=== PATIENT | male | born 1960 | race Caucasian/White ===

== ENCOUNTER → 2017-08-26 13:35 | Outpatient (REF) | payer BC, SELFPAY ==
[2017-08-26 14:07] LABS: Basophils # 0.1 K/mm3 (0-0.2); Eosinophils # 0.1 K/mm3 (0.0-0.4); Eosinophils % 2.3 % (0.1-12.0); Hematocrit 46.3 % (42.0-52.0); Hemoglobin 14.5 g/dL (14.1-18.0); Lymphocytes # 2.1 K/mm3 (0.7-4.5); Lymphocytes % 36.9 K/mm3 (10-50); Mean Corpuscular HGB Conc 31.4 g/dL (31.8-35.4); Mean Corpuscular Hemoglobin 34.3 pg (27.0-31.2); Mean Corpuscular Volume 109.5 fl (80-94); Monocytes # 0.4 K/mm3 (0.1-1.0); Monocytes % 7.9 % (1.7-9.3); Neutrophils # 2.9 K/mm3 (1.8-7.8); Platelet Count 219 K/mm3 (142-424); Red Blood Count 4.23 M/mm3 (4.60-6.20); Red Cell Distribution Width 12.9 % (11.5-17.5); White Blood Count 5.6 K/mm3 (4.8-10.8)
[2017-08-26 16:01] LABS: Alanine Aminotransferase 27 U/L (12-78); Albumin Level 3.8 gm/dL (3.4-5.0); Alkaline Phosphatase 61 U/L (46-116); Anion Gap 16.2 mEq/L (5-15); Aspartate Amino Transferase 32 U/L (15-37); Bilirubin,Total 0.8 mg/dL (0.2-1.0); Blood Urea Nitrogen 7 mg/dL (7-18); Calcium 8.6 mg/dL (8.5-10.1); Carbon Dioxide 26 mmol/L (21.0-32.0); Chloride 102 mmol/L (98-107); Chol/HDL Ratio 3.1 (1-3.5); Cholesterol 194 mg/dL (140-200); Creatinine,Serum 0.63 mg/dL (0.70-1.30); Estimated Glomerular Filt Rate 132 ml/min (>60); Free T4 (Free Thyroxine) 0.75 ng/dl (0.76-1.46); GFR (African American) 159 ML/MIN (>60); Globulin 3.7 gm/dl (1.3-3.2); Glucose 103 mg/dL (74-106); HDL Cholesterol 63 mg/dL (27-67); LDL Cholesterol 98 mg/dL (0-130); Potassium 4.2 mmoL/L (3.5-5.1); Sodium 140 mmol/L (136-145); Thyroid Stimulating Hormone 6.85 uIU/ml (0.358-3.740); Total Protein,Serum 7.5 gm/dL (6.4-8.2); Triglycerides 166 mg/dL (30-200); VLDL Cholesterol 33 mg/dL (0-40)
[2017-08-26 16:05] LABS: Hemoglobin A1C 4.9 % (0.0-7.0)
[2017-08-27 15:39] LABS: PSA, Free 0.26 ng/mL; Prostate Specific Ag 1.2 ng/mL (0.0-4.0); Vitamin B12 369 pg/mL (232-1245); Vitamin D 25 Hydroxy 7.3 ng/mL (30.0-100.0)
== END ==
LOC: LAB 13:35
PROVIDERS: Visit Provider Physician Assistant
DX: R53.83 Other fatigue (principal); R29.898 Other symptoms and signs involving the musculoskeletal system; M50.20 Other cervical disc displacement, unspecified cervical region; M62.81 Muscle weakness (generalized)
CPT/HCPCS: 80053; 80061; 82607; 82652; 83036; 84153; 84154; 84439; 84443; 85025

== ENCOUNTER → 2017-09-16 12:48 | Outpatient (CLI) | payer BC, SELFPAY ==
--- NOTE | 2017-09-16 12:51 | MR_ITS ---
MR cervical spine wo con 3-D MRI myelogram image set included Ordering Physician: Patrick Sigala MD Patient Age: 56 years: Male HISTORY: ITS.REASON: Neck pain, off balance, disc herniations Neck pain for years. TECHNIQUE: Sagittal STIR, T1, T2, axial T1 and T2. On 1.5T Siemens wide bore MRI. 3-D MR myelogram image set obtained & performed on MRI workstation. Additional sagittal thin section T2 weighted dataset obtained from this latter acquisition as well (---76 CPT) COMPARISON :Previous MRI cervical spine 2014 FINDINGS Cranial cervical junction is normal. Adequate volume underlying osseous spinal canal Degenerative disc changes and cervical spondylosis most evident at C6/7 followed by C 3/4 C2/3. Disc and cord normal C3/4 mild posterior osteophytic ridging with additional uncovertebral joint hypertrophy right greater than left. Previously in 2015 there seems to be additional soft disc material extending beyond the right uncovertebral spurs with however this soft tissue previously seen is less evident today and we see residual spurring & focal hard disc to the right right paracentral and near entry right foramen. Suggestion of perhaps subtle progression of uncovertebral joint hypertrophy bilaterally with bilateral foraminal encroachment noted C4/5. Disc intact C5/6... Disc height maintained. Minimal leftward disc bulge/protrusion slightly indents left anterior aspect of thecal sac. This is minimal feature but appears similar to perhaps very slightly more evident than on 2015. Unimpressive C6/7. Marked degenerative disc space narrowing again noted with reactive endplate changes inferior C6.-Similar to previous 2014 study.. Diffuse Posterior hypertrophic osteophytes yolk overhanging of see 6 and C7. There may be an element of scant retrolisthesis. Overall findings are fairly stable at this level since 2015. The disc osteophyte complex slightly indents the anterior aspect of thecal sac and yields mild bilateral encroachment. C7/T1. Disc intact. Only Minor degenerative facet changes throughout C-spine. IMPRESSION No prominent change since previous 2014 study. Minor comments Degenerative disc changes and cervical spondylosis most evident at C6/7, followed by C 3/4 At C3/4.: Bilateral uncovertebral joint hypertrophy may be very slightly more pronounced today, but the previously previously suspect tiny soft disc component to the right at C3/4 is less evident. C6/7 most pronounced degenerative disc space narrowing is seen at this level. Mild Diffuse osteophytic ridging with slight posterior offset. C6 on 7. These features slightly indents the anterior thecal sac and & yield mild bilateral foraminal encroachment.-With Overall fairly stable appearance since 2014 C5/6 with scant very minor disc protrusion the left appearing stable
--- NOTE | 2017-09-16 12:51 | MR_ITS ---
MR lumbar spine wo con, MR 3-d myelogram/MRCP Ordering Physician: Patrick Sigala MD Patient Age: 56 years: Male HISTORY: ITS.REASON: back pain, off balance, disc herniations Low back pain bilateral leg numbness and weakness at times. Symptoms for many years. TECHNIQUE: Sagittal STIR, T1, T2, axial T1 and T2. On 1.5T Siemens wide bore MRI. 3-D MR myelogram image set obtained & performed on MRI workstation. Additional sagittal thin section T2 weighted dataset obtained from this latter acquisition as well (---76 CPT) COMPARISON :Sagittal STIR, T1, T2, axial T1 and T2. On 1.5T Siemens wide bore MRI. 3-D MR myelogram image set obtained & performed on MRI workstation. Additional sagittal thin section T2 weighted dataset obtained from this latter acquisition as well (---76 CPT) FINDINGS Vertebral bodies are intact. Conus ends appropriately at L1. Adequate volume underlying osseous spinal canal L5/S1. Marked degenerative disc space narrowing with reactive endplate changes about the narrowed disc mild posterior ossific region towards the right foramen.. Generous diffuse disc bulge., Along with moderate facet and ligament flavum hypertrophy. These features yield moderate/generous bilateral foraminal encroachment mainly due to the disc bulge. Slight narrowing & tapering of thecal sac but with aspect spinal stenosis as of yet L4/5. Disc intact neural foramen widely patent. [id number] facet hypertrophy L3/4 disc well hydrated & intact. Mild facet arthropathy/hypertrophy. L2/3 disc intact neural foramen widely patent L1/2 disc intact neural foramen widely patent at T12/L1 and T11/12 disc unremarkable. 3-D MRI myelogram image set demonstrates slight tapering of the spinal canal at L5/S1 due to the features noted above. No significant spinal stenosis at this level as of yet IMPRESSION: L5/S1: Degenerative disc space narrowing & findings most evident at L5/S1 Generous diffuse disc bulge along with moderate posterior element hypertrophy yields slight tapering of of thecal sac but no twyla spinal stenosis evident as yet . There is moderate to generous bilateral foraminal encroachment due to the disc bulge encroaching upon the foramen.
== END ==
PROVIDERS: Family Provider Emergency Medicine; PCP Physician Assistant; Visit Provider Emergency Medicine
DX: M50.20 Other cervical disc displacement, unspecified cervical region (principal); M54.5 Low back pain
CPT/HCPCS: 72141; 72148; 76376

== ENCOUNTER 2017-12-11 22:56 | Observation (INO) ==
[2017-12-11 23:21] LABS: Basophils % 0.5 % (0.1-2.0); Eosinophils # 0.1 K/mm3 (0.0-0.4); Eosinophils % 2.3 % (0.1-12.0); Hematocrit 45.8 % (42.0-52.0); Hemoglobin 14.9 g/dL (14.1-18.0); Lymphocytes # 2.4 K/mm3 (0.7-4.5); Lymphocytes % 38.4 K/mm3 (10-50); Mean Corpuscular HGB Conc 32.6 g/dL (31.8-35.4); Mean Corpuscular Hemoglobin 34.8 pg (27.0-31.2); Mean Corpuscular Volume 106.7 fl (80-94); Mean Platelet Volume 7.5 fl (7.4-10.4); Monocytes # 0.4 K/mm3 (0.1-1.0); Monocytes % 7.1 % (1.7-9.3); Neutrophils # 3.2 K/mm3 (1.8-7.8); Neutrophils % 51.8 % (37.0-80.0); Platelet Count 168 K/mm3 (142-424); Red Blood Count 4.29 M/mm3 (4.60-6.20); Red Cell Distribution Width 14.5 % (11.5-17.5); White Blood Count 6.3 K/mm3 (4.8-10.8)
[2017-12-11 23:35] LABS: Alanine Aminotransferase 22 U/L (12-78); Albumin Level 3.8 gm/dL (3.4-5.0); Albumin/Globulin Ratio 0.9 (1.1-1.8); Alkaline Phosphatase 67 U/L (46-116); Amylase 118 U/L (25-125); Anion Gap 14.6 mEq/L (5-15); Aspartate Amino Transferase 18 U/L (15-37); Bilirubin,Total 0.3 mg/dL (0.2-1.0); Blood Urea Nitrogen 7 mg/dL (7-18); Carbon Dioxide 26 mmol/L (21.0-32.0); Chloride 104 mmol/L (98-107); Globulin 4.2 gm/dl (1.3-3.2); Glucose 128 mg/dL (74-106); Lipase 353 u/L (73-393); Potassium 3.6 mmoL/L (3.5-5.1); Sodium 141 mmol/L (136-145)
[2017-12-12 00:01] LABS: Microscopic, Urine URINE MICROSCOPIC (MICROSCOPIC)
[2017-12-12 00:15] LABS: Appearance,Urine CLEAR (Clear); Bilirubin,Urine Negative (Negative); Blood, Urine Negative (Negative); Color,Urine YELLOW (Yellow); Glucose,Urine (UA) Negative (Negative); Ketones,Urine Negative (Negative); Leukocyte Esterase,Urine Negative (Negative); Protein,Urine Negative (Negative); Specific Gravity, Urine 1.025 (1.005-1.030); Urobilinogen,Urine 0.2 EU/dl (0.2)
[2017-12-12 00:21] LABS: Amorphous Sediment,Urine Trace /lpf
--- NOTE | 2017-12-12 00:54 | Emergency Department Note ---
ED Disposition Clinical Impression: Cholecystitis, Cervical disc disease with myelopathy, Lumbar disc disease with radiculopathy, Tobacco use Cholelithiasis Qualifiers: Cholelithiasis location: gallbladder Cholecystitis presence: with cholecystitis Cholecystitis acuity: acute Biliary obstruction: without biliary obstruction Qualified Code(s): K80.00 - Calculus of gallbladder with acute cholecystitis without obstruction Disposition: Admitted as Observation Condition on Discharge: Good Referrals: Narda Mckinley PA [Primary Care Provider] - - Critical Care Critical Care Time: No Attestation: On 12/11/17, the high probability of a clinically significant, sudden or life threatening deterioration of the following system(s) required my full and direct attention, intervention and personal management. The time I documented below is in addition to time spent performing reported procedures but includes the following listed in this critical care notation. Medical Decision Making - Medical Records Medical records reviewed: Yes: I reviewed the patient's medical records. - Best Inquiry Pt receiving controlled substance: No Vital Signs: 12/11/17 22:57 12/11/17 23:45 Temperature 97.7 F Temperature Source Oral Pulse Rate [Right Brachial] 71 65 Respiratory Rate 15 20 Blood Pressure [Right Arm] 160/105 H 147/92 H Blood Pressure Mean [Right Arm] 123 110 Blood Pressure Source [Right Arm] Manual Cuff/ Palpation Blood Pressure Position [Right Arm] Sitting 02 Sat by Pulse Oximetry 100 99 Oxygen Delivery Method Room Air - Lab Data Lab results reviewed: Yes: I reviewed the patient's lab results. Lab Results 12/11/17 23:10: WBC 6.3, RBC 4.29 L, Hgb 14.9, Hct 45.8, MCV 106.7 H, MCH 34.8 H , MCHC 32.6, RDW 14.5, Plt Count 168, MPV 7.5, Neut % (Auto) 51.8, Lymph % (Auto) 38.4, [place] % (Auto) 7.1, Eos % (Auto) 2.3, Baso % (Auto) 0.5, Neut # (Auto) 3.2, Lymph # (Auto) 2.4, [place] # (Auto) 0.4, Eos # (Auto) 0.1, Baso # (Auto) 0.0 12/11/17 23:10: Sodium 141, Potassium 3.6, Chloride 104, Carbon Dioxide 26, Anion Gap 14.6, BUN 7, Creatinine 0.77, Estimated Creat Clear 91, Estimated GFR 104, Est GFR ( Amer) 126, Glucose 128 H, Calcium 9.0, Total Bilirubin 0.3, AST 18, ALT 22, Alkaline Phosphatase 67, Troponin I < 0.02, Total Protein 8.0, Albumin 3.8, Globulin 4.2 H, Albumin/Globulin Ratio 0.9 L, Amylase 118, Lipase 353 12/11/17 23:54: Urine Color Yellow, Urine Appearance Clear, Urine pH 6.0, Ur Specific [place] 1.025, Urine Protein Negative, Urine Glucose (UA) Negative, Urine Ketones Negative, Urine Blood Negative, Urine Nitrate Negative, Urine Bilirubin Negative, Urine Urobilinogen 0.2, Ur Leukocyte Esterase Negative, Amorphous Sediment Trace Result diagrams: 12/11/17 23:10 12/11/17 23:10 Orders (Tests/Meds): ED MEDICATIONS Discontinued Medications Generic Name Dose Route Start Last Admin Trade Name Freq PRN Reason Stop Dose Admin Aspirin 324 mg 12/11/17 23:07 12/11/17 23:43 Aspirin 81mg Chewable Tablet PO 12/11/17 23:08 324 mg ONCE ONE Administration Famotidine 20 mg 12/11/17 23:07 12/11/17 23:43 Pepcid 20mg/2ml Vial IV 12/11/17 23:08 20 mg ONCE ONE Administration Sodium Chloride 1,000 mls @ 999 mls/hr 12/11/17 23:15 12/11/17 23:43 Sod Chlor 0.9% 1000ml Bag IV 12/12/17 00:15 999 mls/hr .Q1H1M STEFFEN Administration Metoclopramide HCl 10 mg 12/11/17 23:07 12/11/17 23:43 Reglan 10mg/2ml Vial IVP 12/11/17 23:08 10 mg ONCE ONE Administration ORDERS Category Date Time Status CT abdomen pelvis wo con Stat Cat Scan 12/11/17 23:07 Taken XR chest 2V Stat Exams 12/11/17 23:07 Taken Urinalysis and Microscopic Stat Lab 12/11/17 23:54 Ordered - Radiology Data #1 Image(s): Chest Image Reviewed: Yes I reviewed the patient's radiology image Preliminary Findings: Normal/NAD - CT Data CT Scan: Abdomen, Pelvis Time Received: 00:[address] Reviewed: Yes: I have viewed the radiologist's interpretation Preliminary Findings: Abnormal (cholecystitis ) - ECG Data Tracing #1 I reviewed this ECG and interpreted as documented below: Normal Sinus Rhythm: Yes Ischemic changes: non-specific ST-T wave changes Nausea/Vomiting/Diarrhea HPI - General Chief complaint: Chest Pain Stated complaint: Chest pain Time Seen by Provider: 12/12/17 00:15 Mode of Arrival: Ambulatory Source of Information: Patient, Spouse, Medical Record Limitations: No Limitations Description of Symptoms (Recalled from ER Triage Doc. by RN): Pt is having chest pain, and abd pain that started about 2 hours ago. He states the pain is in his lower chest and all down his abd. Pt states he was sick to his stomach earlier but isn't now. Pt denies any other symptoms - History of Present Illness HPI Narrative: new onset of upper abd pain with nausea but no melena - he has tob use and no etoh - pt with no diabetes and no known ht disease MD complaint: nausea, vomiting, abdominal pain Onset (ago): hour(s) Associated Abdominal Pain: Yes Location of pain: epigastric Severity: moderate Associated symptoms: denies other symptoms - Related Data Home Medications Medication Instructions Recorded Confirmed Cholecalciferol (Vitamin D3) 1,000 unit PO DAILY 12/11/17 12/11/17 [Vitamin D3 1,000 Unit Cap] Ergocalciferol (Vitamin D2) 50,000 unit PO QWEEK 12/11/17 12/11/17 [Drisdol] Fluticasone Propionate 1 spray INTRANASAL ONCE 12/11/17 12/11/17 Furosemide [Furosemide 40MG tAB] 40 mg PO DAILY 12/11/17 12/11/17 Gabapentin [Gabapentin 400mg Cap] 400 mg PO TID 12/11/17 12/11/17 Allergies Allergy/AdvReac Type Severity Reaction Status Date / Time tramadol [TRAMADOL] Allergy Unknown ITCHING Verified 12/11/17 23:05 [facility] History I have reviewed the patient's past medical history: Yes Medical History: Reports:: Deep Vein Thrombosis Other Surgeries: Yes: Colonoscopy, Other Amputation: No Fractures: No - Social History Smoking Status: Current every day smoker Tobacco Type: cigarettes # Packs/Day (cigarettes): 1 Alcohol Intake: current Alcohol Intake Frequency:: a few times a week Substance Use Type: denies use - Psychiatric History Expresses thoughts of harming self/others: None Suicide Plan Description: No Plan Family Hx:: Cancer ROS Obtained: Yes All systems reviewed & no additional complaints - Constitutional Constitutional: Denies fever(s) - Eyes Eyes: Denies change in vision - ENT Ears, Nose, Mouth, and Throat: Denies sore throat - Cardiovascular Cardiovascular: Denies chest pain - Respiratory Respiratory: No cough - Gastrointestinal Gastrointestingal: Reports: as per HPI, abdominal pain, nausea, vomiting. Denies: diarrhea, black, tarry stools - Genitourinary Male Genitourinary: Denies hematuria - Musculoskeletal Musculoskeletal: Denies joint pain, Denies back pain - Integumentary/Breasts Skin/Breast: Denies rash - Neurologic Neurologic: Denies seizure-like activity Physical Exam - General General appearance: alert - Head Head exam: normocephalic - Eye Eye exam: Present: PERRL, EOMI - ENT ENT exam: Present: mucous membranes moist - Neck Neck exam: Present: trachea midline - Respiratory Respiratory exam: Present: normal lung sounds bilaterally. Absent: respiratory distress - Cardiovascular Cardiovascular exam: Present: regular rate, systolic murmur - Abdominal Exam Abdominal exam: Present: soft, tenderness, Caraballo's sign Abdominal tenderness: Present: RUQ, epigastrium, moderate - Extremities Exam Extremities exam: Present: full ROM, pedal edema. Absent: calf tenderness - Neurological Exam Neurological exam: Present: alert, oriented X3, CN II-XII intact - Psychiatric Psychiatric exam: Present: normal affect - Skin Skin exam: Absent: rash
[2017-12-12 06:01] LABS: Basophils % 0.5 % (0.1-2.0); Eosinophils # 0.1 K/mm3 (0.0-0.4); Lymphocytes % 17.8 K/mm3 (10-50); Mean Corpuscular HGB Conc 32.3 g/dL (31.8-35.4); Mean Corpuscular Hemoglobin 34.6 pg (27.0-31.2); Mean Corpuscular Volume 107.3 fl (80-94); Mean Platelet Volume 7.3 fl (7.4-10.4); Monocytes # 0.4 K/mm3 (0.1-1.0); Monocytes % 6.6 % (1.7-9.3); Neutrophils # 4.3 K/mm3 (1.8-7.8); Neutrophils % 74.1 % (37.0-80.0); Platelet Count 147 K/mm3 (142-424); Red Blood Count 3.45 M/mm3 (4.60-6.20); Red Cell Distribution Width 14.4 % (11.5-17.5); White Blood Count 5.9 K/mm3 (4.8-10.8)
[2017-12-12 06:03] LABS: Hemoglobin 11.9 g/dL (14.1-18.0)
[2017-12-12 06:26] LABS: Alanine Aminotransferase 18 U/L (12-78); Albumin Level 3.2 gm/dL (3.4-5.0); Alkaline Phosphatase 54 U/L (46-116); Anion Gap 11.2 mEq/L (5-15); Aspartate Amino Transferase 13 U/L (15-37); Bilirubin,Direct 0.1 mg/dL (0.0-0.2); Bilirubin,Indirect 0.2 mg/dL (0.0-0.9); Bilirubin,Total 0.3 mg/dL (0.2-1.0); Blood Urea Nitrogen 6 mg/dL (7-18); Calcium 8.2 mg/dL (8.5-10.1); Carbon Dioxide 28 mmol/L (21.0-32.0); Chloride 109 mmol/L (98-107); Chol/HDL Ratio 2.9 (1-3.5); Cholesterol 153 mg/dL (140-200); Glucose 108 mg/dL (74-106); HDL Cholesterol 52 mg/dL (27-67); LDL Cholesterol 87 mg/dL (0-130); Lipase 226 u/L (73-393); Potassium 4.2 mmoL/L (3.5-5.1); Sodium 144 mmol/L (136-145); Total Protein,Serum 6.1 gm/dL (6.4-8.2); Triglycerides 72 mg/dL (30-200); VLDL Cholesterol 14 mg/dL (0-40)
--- NOTE | 2017-12-12 07:27 | Consult Report ---
*Admission Date: 12/12/17 *Chief complaint: Abdominal pain and nausea *History of present illness: This is a 57-year-old gentleman seen in consultation from Dr. iSgala for evaluation regarding gallbladder disease. He presents the emergency department overnight with increasing abdominal pain mostly in the "upper abdomen ". Associated nausea. No fevers. No jaundice. Evaluation included a CT scan that showed changes consistent with calculus cholecystitis. The patient states he "feels better right now". He states that "medicine has kicked in". He is concerned that his pain will return if he does not continue his pain medication. Please see forwarded a copy of HPI from emergency department evaluation below: Pt is having chest pain, and abd pain that started about 2 hours ago. He states the pain is in his lower chest and all down his abd. Pt states he was sick to his stomach earlier but isn't now. Pt denies any other symptoms Review of Systems - Constitutional Denies chills - Eyes Denies change in vision - ENT Denies change in voice - *Cardiovascular Denies shortness of breath with activity - *Respiratory Denies cough - *Gastrointestinal Reports abdominal pain, Reports nausea, Denies vomiting blood, Denies bright, red blood in stools - *Genitourinary Denies difficulty urinating - *Musculoskeletal Denies abnormal walking - Integumentary/Breasts Denies bleeding lesions - *Neurologic Denies seizure-like activity - Psychiatric Denies anxiety - Endocrine Denies cold intolerance - Hematologic/Lymphatic Denies easy bleeding - Allergic/Immunologic Denies GI upset with certain foods [facility] History Medical History: Reports:: Deep Vein Thrombosis Other Surgeries: Yes: Colonoscopy, Other Amputation: No Fractures: No - *Social History Educational Level: Attended High School Smoking Status: Current every day smoker Tobacco Type: cigarettes # Packs/Day (cigarettes): 1 Alcohol Intake: never Alcohol Intake Frequency:: a few times a week Substance Use Type: denies use Occupational Status: unemployed Housing: house Household Members: spouse - Psychiatric History Expresses thoughts of harming self/others: None Suicide Plan Description: No Plan *Family Hx:: Cancer, Tuberculosis Meds Home Medications Medication Instructions Recorded Confirmed Type Cholecalciferol (Vitamin D3) 1,000 unit PO DAILY 12/11/17 12/11/17 History [Vitamin D3 1,000 Unit Cap] Ergocalciferol (Vitamin D2) 50,000 unit PO QWEEK 12/11/17 12/11/17 History [Drisdol] Fluticasone Propionate 1 spray INTRANASAL ONCE 12/11/17 12/11/17 History Furosemide [Furosemide 40MG tAB] 40 mg PO DAILY 12/11/17 12/11/17 History Gabapentin [Gabapentin 400mg Cap] 400 mg PO TID 12/11/17 12/11/17 History Allergies Allergy/AdvReac Type Severity Reaction Status Date / Time tramadol [TRAMADOL] Allergy Unknown ITCHING Verified 12/11/17 23:05 Exam Vital signs and Labs for Last 24 Hours: Temp Pulse Resp BP Pulse Ox 98.1 F 67 18 126/80 98 12/12/17 04:00 12/12/17 04:00 12/12/17 04:00 12/12/17 04:00 12/12/17 04:00 Laboratory Results - last 24 hr 12/11/17 23:10: WBC 6.3, RBC 4.29 L, Hgb 14.9, Hct 45.8, MCV 106.7 H, MCH 34.8 H , MCHC 32.6, RDW 14.5, Plt Count 168, MPV 7.5, Neut % (Auto) 51.8, Lymph % (Auto) 38.4, [place] % (Auto) 7.1, Eos % (Auto) 2.3, Baso % (Auto) 0.5, Neut # (Auto) 3.2, Lymph # (Auto) 2.4, [place] # (Auto) 0.4, Eos # (Auto) 0.1, Baso # (Auto) 0.0 12/11/17 23:10: Sodium 141, Potassium 3.6, Chloride 104, Carbon Dioxide 26, Anion Gap 14.6, BUN 7, Creatinine 0.77, Estimated Creat Clear 91, Estimated GFR 104, Est GFR ( Amer) 126, Glucose 128 H, Calcium 9.0, Total Bilirubin 0.3, AST 18, ALT 22, Alkaline Phosphatase 67, Troponin I < 0.02, Total Protein 8.0, Albumin 3.8, Globulin 4.2 H, Albumin/Globulin Ratio 0.9 L, Amylase 118, Lipase 353 12/11/17 23:54: Urine Color Yellow, Urine Appearance Clear, Urine pH 6.0, Ur Specific [place] 1.025, Urine Protein Negative, Urine Glucose (UA) Negative, Urine Ketones Negative, Urine Blood Negative, Urine Nitrate Negative, Urine Bilirubin Negative, Urine Urobilinogen 0.2, Ur Leukocyte Esterase Negative, Amorphous Sediment Trace 12/12/17 05:40: WBC 5.9, RBC 3.45 L, Hgb 11.9 L D, Hct 37.0 L, MCV 107.3 H, MCH 34.6 H, MCHC 32.3, RDW 14.4, Plt Count 147, MPV 7.3 L, Neut % (Auto) 74.1, Lymph % (Auto) 17.8, [place] % (Auto) 6.6, Eos % (Auto) 1.0, Baso % (Auto) 0.5, Neut # (Auto) 4.3, Lymph # (Auto) 1.0, [place] # (Auto) 0.4, Eos # (Auto) 0.1, Baso # (Auto) 0.0 12/12/17 05:40: Sodium 144, Potassium 4.2, Chloride 109 H, Carbon Dioxide 28, Anion Gap 11.2, BUN 6 L, Creatinine 0.67 L, Estimated Creat Clear 104, Estimated GFR 122, Est GFR ( Amer) 148, Glucose 108 H, Calcium 8.2 L, Total Bilirubin 0.3, Direct Bilirubin 0.1, Indirect Bilirubin 0.2, AST 13 L D, ALT 18, Alkaline Phosphatase 54, Troponin I < 0.02, Total Protein 6.1 L, Albumin 3.2 L D, Triglycerides 72, Cholesterol 153, LDL Cholesterol 87, VLDL Cholesterol 14, HDL Cholesterol 52, Cholesterol/HDL Ratio 2.9, Lipase 226 I & O for Last 24 hours: Intake & Output 12/09/17 12/10/17 12/11/17 12/12/17 11:59 11:59 11:59 11:59 Intake Total 1000 / 1000 Output Total 300 / 300 Balance 700 / 700 Weight 133 lb - Constitutional no acute distress - *Routine Respiratory Exam Absent: respiratory distress - *Routine Cardiovascular Exam Present: RRR - *Routine Abdominal Exam Present: soft, tenderness Comments: mild TTP in upper abdomen Results - Labs 12/12/17 05:40 12/12/17 05:40 Laboratory Results - last 24 hr 12/11/17 23:10: WBC 6.3, RBC 4.29 L, Hgb 14.9, Hct 45.8, MCV 106.7 H, MCH 34.8 H , MCHC 32.6, RDW 14.5, Plt Count 168, MPV 7.5, Neut % (Auto) 51.8, Lymph % (Auto) 38.4, [place] % (Auto) 7.1, Eos % (Auto) 2.3, Baso % (Auto) 0.5, Neut # (Auto) 3.2, Lymph # (Auto) 2.4, [place] # (Auto) 0.4, Eos # (Auto) 0.1, Baso # (Auto) 0.0 12/11/17 23:10: Sodium 141, Potassium 3.6, Chloride 104, Carbon Dioxide 26, Anion Gap 14.6, BUN 7, Creatinine 0.77, Estimated Creat Clear 91, Estimated GFR 104, Est GFR ( Amer) 126, Glucose 128 H, Calcium 9.0, Total Bilirubin 0.3, AST 18, ALT 22, Alkaline Phosphatase 67, Troponin I < 0.02, Total Protein 8.0, Albumin 3.8, Globulin 4.2 H, Albumin/Globulin Ratio 0.9 L, Amylase 118, Lipase 353 12/11/17 23:54: Urine Color Yellow, Urine Appearance Clear, Urine pH 6.0, Ur Specific [place] 1.025, Urine Protein Negative, Urine Glucose (UA) Negative, Urine Ketones Negative, Urine Blood Negative, Urine Nitrate Negative, Urine Bilirubin Negative, Urine Urobilinogen 0.2, Ur Leukocyte Esterase Negative, Amorphous Sediment Trace 12/12/17 05:40: WBC 5.9, RBC 3.45 L, Hgb 11.9 L D, Hct 37.0 L, MCV 107.3 H, MCH 34.6 H, MCHC 32.3, RDW 14.4, Plt Count 147, MPV 7.3 L, Neut % (Auto) 74.1, Lymph % (Auto) 17.8, [place] % (Auto) 6.6, Eos % (Auto) 1.0, Baso % (Auto) 0.5, Neut # (Auto) 4.3, Lymph # (Auto) 1.0, [place] # (Auto) 0.4, Eos # (Auto) 0.1, Baso # (Auto) 0.0 12/12/17 05:40: Sodium 144, Potassium 4.2, Chloride 109 H, Carbon Dioxide 28, Anion Gap 11.2, BUN 6 L, Creatinine 0.67 L, Estimated Creat Clear 104, Estimated GFR 122, Est GFR ( Amer) 148, Glucose 108 H, Calcium 8.2 L, Total Bilirubin 0.3, Direct Bilirubin 0.1, Indirect Bilirubin 0.2, AST 13 L D, ALT 18, Alkaline Phosphatase 54, Troponin I < 0.02, Total Protein 6.1 L, Albumin 3.2 L D, Triglycerides 72, Cholesterol 153, LDL Cholesterol 87, VLDL Cholesterol 14, HDL Cholesterol 52, Cholesterol/HDL Ratio 2.9, Lipase 226 Assessment and Plan (1) Acute calculous cholecystitis Current visit: Yes Status: Acute Category: Medical Code(s): K80.00 - Calculus of gallbladder with acute cholecystitis without obstruction The patient is being scheduled for laparoscopic cholecystectomy (later today). I have discussed the risks and benefits including, but not limited to: Bleeding Infection Damage to surrounding tissue Inherent risks of sedation The patient agrees to proceed.
--- NOTE | 2017-12-12 08:23 | History & Physical Report ---
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 and unable to cy diet and had pain despite meds in the ed and had abn ct - pt was admitted with gallbladder disease - [facility] History I have reviewed the patient's past medical history: Yes Medical History: Reports:: Deep Vein Thrombosis Other Surgeries: Yes: Colonoscopy, Other Amputation: No Fractures: No - *Social History Educational Level: Attended High School Smoking Status: Current every day smoker Tobacco Type: cigarettes # Packs/Day (cigarettes): 1 Alcohol Intake: never Alcohol Intake Frequency:: a few times a week Substance Use Type: denies use Occupational Status: unemployed Housing: house Household Members: spouse - Psychiatric History Expresses thoughts of harming self/others: None Suicide Plan Description: No Plan *Family Hx:: Cancer, Tuberculosis Review of Systems - Review of Systems Review of systems:: pertinent systems reviewed and negative unless documented below - Constitutional Denies fever(s) - Eyes Denies change in vision - ENT Denies dizziness - *Cardiovascular Denies chest pain at rest, Denies radiating jaw, neck or arm pain - *Respiratory Denies cough - *Gastrointestinal Reports abdominal pain, Reports nausea, Reports vomiting - *Genitourinary Denies blood in urine - *Musculoskeletal Denies joint pain - Integumentary/Breasts Denies rash - *Neurologic Denies abnormal walking, Denies seizure-like activity - Psychiatric Denies anxiety Meds Home Medications Medication Instructions Recorded Confirmed Type Cholecalciferol (Vitamin D3) 1,000 unit PO DAILY 12/11/17 12/11/17 History [Vitamin D3 1,000 Unit Cap] Ergocalciferol (Vitamin D2) 50,000 unit PO QWEEK 12/11/17 12/11/17 History [Drisdol] Fluticasone Propionate 1 spray INTRANASAL ONCE 12/11/17 12/11/17 History Furosemide [Furosemide 40MG tAB] 40 mg PO DAILY 12/11/17 12/11/17 History Gabapentin [Gabapentin 400mg Cap] 400 mg PO TID 12/11/17 12/11/17 History Allergies Allergy/AdvReac Type Severity Reaction Status Date / Time tramadol [TRAMADOL] Allergy Unknown ITCHING Verified 12/11/17 23:05 Exam Vital signs and Labs for Last 24 Hours: Temp Pulse Resp BP Pulse Ox 98.1 F 67 18 126/80 98 12/12/17 04:00 12/12/17 04:00 12/12/17 04:00 12/12/17 04:00 12/12/17 04:00 Laboratory Results - last 24 hr 12/11/17 23:10: WBC 6.3, RBC 4.29 L, Hgb 14.9, Hct 45.8, MCV 106.7 H, MCH 34.8 H , MCHC 32.6, RDW 14.5, Plt Count 168, MPV 7.5, Neut % (Auto) 51.8, Lymph % (Auto) 38.4, [place] % (Auto) 7.1, Eos % (Auto) 2.3, Baso % (Auto) 0.5, Neut # (Auto) 3.2, Lymph # (Auto) 2.4, [place] # (Auto) 0.4, Eos # (Auto) 0.1, Baso # (Auto) 0.0 12/11/17 23:10: Sodium 141, Potassium 3.6, Chloride 104, Carbon Dioxide 26, Anion Gap 14.6, BUN 7, Creatinine 0.77, Estimated Creat Clear 91, Estimated GFR 104, Est GFR ( Amer) 126, Glucose 128 H, Calcium 9.0, Total Bilirubin 0.3, AST 18, ALT 22, Alkaline Phosphatase 67, Troponin I < 0.02, Total Protein 8.0, Albumin 3.8, Globulin 4.2 H, Albumin/Globulin Ratio 0.9 L, Amylase 118, Lipase 353 12/11/17 23:54: Urine Color Yellow, Urine Appearance Clear, Urine pH 6.0, Ur Specific [place] 1.025, Urine Protein Negative, Urine Glucose (UA) Negative, Urine Ketones Negative, Urine Blood Negative, Urine Nitrate Negative, Urine Bilirubin Negative, Urine Urobilinogen 0.2, Ur Leukocyte Esterase Negative, Amorphous Sediment Trace 12/12/17 05:40: WBC 5.9, RBC 3.45 L, Hgb 11.9 L D, Hct 37.0 L, MCV 107.3 H, MCH 34.6 H, MCHC 32.3, RDW 14.4, Plt Count 147, MPV 7.3 L, Neut % (Auto) 74.1, Lymph % (Auto) 17.8, [place] % (Auto) 6.6, Eos % (Auto) 1.0, Baso % (Auto) 0.5, Neut # (Auto) 4.3, Lymph # (Auto) 1.0, [place] # (Auto) 0.4, Eos # (Auto) 0.1, Baso # (Auto) 0.0 12/12/17 05:40: Sodium 144, Potassium 4.2, Chloride 109 H, Carbon Dioxide 28, Anion Gap 11.2, BUN 6 L, Creatinine 0.67 L, Estimated Creat Clear 104, Estimated GFR 122, Est GFR ( Amer) 148, Glucose 108 H, Calcium 8.2 L, Total Bilirubin 0.3, Direct Bilirubin 0.1, Indirect Bilirubin 0.2, AST 13 L D, ALT 18, Alkaline Phosphatase 54, Troponin I < 0.02, Total Protein 6.1 L, Albumin 3.2 L D, Triglycerides 72, Cholesterol 153, LDL Cholesterol 87, VLDL Cholesterol 14, HDL Cholesterol 52, Cholesterol/HDL Ratio 2.9, Lipase 226 I & O for Last 24 hours: Intake & Output 12/09/17 12/10/17 12/11/17 12/12/17 11:59 11:59 11:59 11:59 Intake Total 1000 / 1000 Output Total 300 / 300 Balance 700 / 700 Weight 133 lb - Constitutional no acute distress, thin - *Routine HEENT Exam Head: Present: normocephalic, atraumatic Eye: Present: EOMI, PERRL. Absent: conjunctival icterus ENT: Present: mucous membranes dry - *Routine Neck Exam Present: supple. Absent: JVD - *Routine Respiratory Exam Present: CTA bilaterally - *Routine Cardiovascular Exam Present: RRR, murmur - *Routine Abdominal Exam Present: soft, tenderness Comments: tender rt upper abd - *Routine Extremities Exam Present: full ROM - Routine Back/Spine/Pelvis Exam Back/Spine: Absent: CVA tenderness - *Routine Skin Exam Present: intact - *Routine Neurological Exam Present: alert, oriented X3, CN II-XII intact - Routine Psychiatric Exam Present: normal affect Assessment and Plan (1) Acute calculous cholecystitis Current visit: Yes Status: Acute Category: Medical Code(s): K80.00 - Calculus of gallbladder with acute cholecystitis without obstruction (2) Tobacco use Current visit: Yes Status: Acute Category: Medical Code(s): Z72.0 - Tobacco use (3) Cervical disc disease with myelopathy Current visit: Yes Status: Chronic Category: Medical Code(s): M50.00 - Cervical disc disorder with myelopathy, unspecified cervical region (4) Lumbar disc disease with radiculopathy Current visit: Yes Status: Chronic Category: Medical Code(s): M51.16 - Intervertebral disc disorders with radiculopathy, lumbar region
--- NOTE | 2017-12-12 10:33 | Progress Note ---
[facility] Anesthesia Checklist - Patient Identification Patient Identification: Arm Band, Verbal (Name & ) - Structural Data Admitted From: Inpatient Planned Operative Procedure/s: Laparoscopic cholecystectomy Consent for Planned Operative Procedure(s) Verified: Yes Verified Documents: Surgical Consent, History and Physical - NPO Status Verified Time NPO: 00:00 - Additional verifications Anesthesia Reactions: No - Airway Assessment C-Spine Mobility Assessed: Yes TMJ Mobility Assessed: Yes Dentition: Poor Dentition (missing teeth) - Neurological Assessment Level of Consciousness: Awake Hx Seizures: No Numbness or tingling in extremities: No - Anesthesia Plan Anesthesia Risk discussed: Yes Anesthesia Plan: Verified ASA Class: III Anesthesia Type: General [facility] History I have reviewed the patient's past medical history: Yes Medical History: Reports:: Congestive Heart Failure, Deep Vein Thrombosis Other Medical History: Reports: Hypothyroidism, Other (N/V, CBP) Other Surgeries: Yes: Colonoscopy, Other Amputation: No Fractures: No - *Social History Educational Level: Attended High School Smoking Status: Current every day smoker Tobacco Type: cigarettes # Packs/Day (cigarettes): 1 Alcohol Intake: never Alcohol Intake Frequency:: a few times a week Substance Use Type: denies use Occupational Status: unemployed Housing: house Household Members: spouse - Psychiatric History Expresses thoughts of harming self/others: None Suicide Plan Description: No Plan *Family Hx:: Cancer, Tuberculosis
--- NOTE | 2017-12-12 10:50 | Pharmacy Consult Notes ---
[facility] Pharmacy VTE Monitoring - Patient Demographics Admission date: 12/12/17 Report Date: 12/12/17 Time: 10:50 Allergies/Adverse Reactions: Patient Allergies tramadol [TRAMADOL] Allergy (Unknown, Verified 12/11/17 23:05) ITCHING Height: 1.78 m Weight: 60.328 kg Patient Problems: Current Active Problems (Last Updated 08/30/17 @ 12:29 by TG Sanchez) Cholecystitis (Acute) Cholelithiasis (Acute) Tobacco use (Acute) Acute calculous cholecystitis (Acute) Cervical disc disease with myelopathy (Chronic) Lumbar disc disease with radiculopathy (Chronic) - VTE Risk Labs: VTE Related Lab Results Hgb 11.9 g/dL (14.1-18.0) L D 12/12/17 05:40 Hct 37.0 % (42.0-52.0) L 12/12/17 05:40 Plt Count 147 K/mm3 (142-424) 12/12/17 05:40 BUN 6 mg/dL (7-18) L 12/12/17 05:40 Creatinine 0.67 mg/dL (0.70-1.30) L 12/12/17 05:40 Estimated Creat Clear 104 mL/min (0-300) 12/12/17 05:40 Was VTE Risk Assessment Performed: Yes VTE Score: 2 VTE Risk Level: Low Risk Clinical Trial Participant: No - Prophylaxis VTE Prophylaxis Ordered?: Yes Location of Applied Device: Bilateral Lower Extremeties
--- NOTE | 2017-12-12 12:11 | Operative Note ---
Date of procedure: 12/12/17 Pre-op Diagnosis:: Acute calculus cholecystitis Post-op Diagnosis:: Same Procedure performed:: Laparoscopic cholecystectomy Surgeon:: Hardeep Stevens MD Anesthesia: GETYvon Estimated blood loss (mL): 15 Operative findings:: Significant gallbladder distention Significant inflammatory response and thickening of tissue around the infundibulum Operative note:: After informed consent was obtained, the patient was taken to the operating room and placed in the supine position. General anesthesia was induced and the abdomen was prepped and draped in a sterile fashion. After infiltration with local anesthetic an infraumbilical incision was made. A Veress needle was placed in position. The abdomen was insufflated. A 5 mm optical trocar was placed in position. Under direct visualization, a 12 mm trocar was placed in the subxiphoid position and 2 additional 5 mm trocars were placed in the right upper quadrant. The gallbladder was elevated up and over the liver margin. Significant gallbladder distention noted. The tissue around the cystic duct was carefully dissected. This tissue was very thickened and acutely inflamed. The decision to proceed with transection at the infundibulum and Endoloop closure was made secondary to these findings. Endoloops (x2) were utilized to control the infundibulum/cystic stump after transection with harmonic trang. Harmonic trang were then utilized to dissect the gallbladder away from the liver margin with careful attention to the control of the cystic artery. The gallbladder was placed in a retrieval bag and removed through the subxiphoid trocar site. The right upper quadrant was thoroughly irrigated. No active bleeding or bile leak was noted. Fascia at the subxiphoid trocar site was reapproximated utilizing 0 Ethibond. The remaining trocars were removed. All wounds were irrigated and skin was closed with 4-0 Monocryl in a subcuticular fashion. Steri-Strips were applied. The patient's anesthetic agents were reversed and extubation was completed prior to transfer to recovery in stable condition. Condition: stable Disposition: PACU Specimens:: Gallbladder Complications:: No immediate
--- NOTE | 2017-12-12 12:17 | Progress Note ---
[facility] Anesthesia Record Part I Intake, IV Amount: 900 Estimated blood loss (mL): 15 Urine output (mL): 0 Blood Products used (#): none Blood Pressure: 127/89 SaO2: 97 Pulse Rate: 80 Respiratory Rate: 8 Temperature: 97.9 F Patient is:: Awake, Stable Stable to PACU at:: 12:13
--- NOTE | 2017-12-12 12:18 | Progress Note ---
[facility] Anesthesia Record Part II Discharge Time: 12:43 Destination: Medical Surgical Department PACU nurse assessment reviewed?: Yes Patient Condition:: Good Anesthesia Complications:: None
[2017-12-13 05:38] LABS: Basophils % 0.4 % (0.1-2.0); Eosinophils % 0.4 % (0.1-12.0); Hematocrit 38.7 % (42.0-52.0); Hemoglobin 12.3 g/dL (14.1-18.0); Lymphocytes # 1.7 K/mm3 (0.7-4.5); Lymphocytes % 21.9 K/mm3 (10-50); Mean Corpuscular HGB Conc 31.8 g/dL (31.8-35.4); Mean Corpuscular Hemoglobin 34.3 pg (27.0-31.2); Mean Corpuscular Volume 107.7 fl (80-94); Mean Platelet Volume 7.2 fl (7.4-10.4); Monocytes # 0.7 K/mm3 (0.1-1.0); Neutrophils # 5.3 K/mm3 (1.8-7.8); Neutrophils % 68.3 % (37.0-80.0); Platelet Count 148 K/mm3 (142-424); Red Blood Count 3.59 M/mm3 (4.60-6.20); Red Cell Distribution Width 14.3 % (11.5-17.5); White Blood Count 7.7 K/mm3 (4.8-10.8)
[2017-12-13 05:51] LABS: Albumin Level 3.3 gm/dL (3.4-5.0); Albumin/Globulin Ratio 0.9 (1.1-1.8); Bilirubin,Total 0.7 mg/dL (0.2-1.0); Calcium 8.3 mg/dL (8.5-10.1); Globulin 3.7 gm/dl (1.3-3.2)
--- NOTE | 2017-12-13 06:59 | Progress Note ---
Subjective Patient reports: feels better Exam Vital signs and Labs for Last 24 Hours: Temp Pulse Resp BP Pulse Ox 98.2 F 69 18 122/90 98 12/13/17 03:56 12/13/17 03:56 12/13/17 03:56 12/13/17 03:56 12/13/17 03:56 Laboratory Results - last 24 hr 12/13/17 05:15: WBC 7.7 D, RBC 3.59 L, Hgb 12.3 L, Hct 38.7 L, MCV 107.7 H, MCH 34.3 H, MCHC 31.8, RDW 14.3, Plt Count 148, MPV 7.2 L, Neut % (Auto) 68.3, Lymph % (Auto) 21.9, [place] % (Auto) 9.0, Eos % (Auto) 0.4, Baso % (Auto) 0.4, Neut # (Auto) 5.3, Lymph # (Auto) 1.7, Yell # (Auto) 0.7, Eos # (Auto) 0.0, Baso # (Auto) 0.0 12/13/17 05:15: Sodium 140, Potassium 4.0, Chloride 105, Carbon Dioxide 27, Anion Gap 12.0, BUN 13 D, Creatinine 0.82 D, Estimated Creat Clear 85, Estimated GFR 97, Est GFR ( Amer) 117 D, Glucose 101, Calcium 8.3 L, Total Bilirubin 0.7, AST 36 D, ALT 31 D, Alkaline Phosphatase 54, Total Protein 7.0, Albumin 3.3 L, Globulin 3.7 H, Albumin/Globulin Ratio 0.9 L I & O for Last 24 hours: Intake & Output 12/10/17 12/11/17 12/12/17 12/13/17 11:59 11:59 11:59 11:59 Intake Total 1000 / 1000 4276 / 4276 Output Total 600 / 600 1800 / 1800 Balance 400 / 400 2476 / 2476 Weight 133 lb - Constitutional no acute distress - *Routine Respiratory Exam Absent: respiratory distress - *Routine Cardiovascular Exam Present: RRR - *Routine Abdominal Exam Present: soft Comments: Dressings intact. No erythema. Progress Note: A&P (1) Acute calculous cholecystitis Status: Acute Assessment and plan: Stable status post laparoscopic cholecystectomy. Okay from surgical standpoint for discharge home with outpatient follow-up. Current Visit: Yes (2) Tobacco use Status: Acute Current Visit: Yes (3) Cervical disc disease with myelopathy Status: Chronic Current Visit: Yes (4) Lumbar disc disease with radiculopathy Status: Chronic Current Visit: Yes
--- NOTE | 2017-12-13 08:17 | Discharge Summary ---
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 Sigala for evaluation regarding gallbladder disease. He presents the emergency department overnight with increasing abdominal pain mostly in the "upper abdomen ". Associated nausea. No fevers. No jaundice. Evaluation included a CT scan that showed changes consistent with calculus cholecystitis. The patient states he "feels better right now". He states that "medicine has ki cked in". He is concerned that his pain will return if he does not continue his pain medication. Please see forwarded a copy of HPI from emergency department evaluation below: Pt is having chest pain, and abd pain that started about 2 hours ago. He states the pain is in his lower chest and all down his abd. Pt states he was sick to his stomach earlier but isn't now. Pt denies any other symptoms pt had nikolas calculus cholecystitis Post-op Diagnosis:: Same Procedure performed:: Laparoscopic cholecystectomy Surgeon:: Hardeep Stevens MD Anesthesia: GETYvon Estimated blood loss (mL): 15 Operative findings:: Significant gallbladder distention Significant inflammatory response and thickening of tissue around the infundibulum Operative note:: After informed consent was obtained, the patient was taken to the operating room and placed in the supine position. General anesthesia was induced and the abdomen was prepped and draped in a sterile fashion. After infiltration with local anesthetic an infraumbilical incision was made. A Veress needle was placed in position. The abdomen was insufflated. A 5 mm optical trocar was placed in position. Under direct visualization, a 12 mm trocar was placed in the subxiphoid position and 2 additional 5 mm trocars were placed in the right upper quadrant. The gallbladder was elevated up and over the liver margin. Significant gallbladder distention noted. The tissue around the cystic duct was carefully dissected. This tissue was very thickened and acutely inflamed. The decision to proceed with transection at the infundibulum and Endoloop closure was made secondary to these findings. Endoloops (x2) were utilized to control the infundibulum/cystic stump after transection with harmonic trang. Harmonic trang were then utilized to dissect the gallbladder away from the liver margin with careful attention to the control of the cystic artery. The gallbladder was placed in a retrieval bag and removed through the subxiphoid trocar site. The right upper quadrant was thoroughly irrigated. No active bleeding or bile leak was noted. Fascia at the subxiphoid trocar site was reapproximated utilizing 0 Ethibond. The remaining trocars were removed. All wounds were irrigated and skin was closed with 4-0 Monocryl in a subcuticular fashion. Steri-Strips were applied. The patient's anesthetic agents were reversed and extubation was completed prior to transfer to recovery in stable condition. Condition: stable Disposition: PACU Specimens:: Gallbladder pt doing well and will be d/c today Objective Vital signs: Temp Pulse Resp BP Pulse Ox 97.7 F 81 20 119/69 96 12/13/17 08:00 12/13/17 08:00 12/13/17 08:00 12/13/17 08:00 12/13/17 08:00 no acute distress, thin - *Routine HEENT Exam Head: Present: normocephalic Eye: Present: EOMI, PERRL ENT: Present: mucous membranes dry - *Routine Neck Exam Present: supple - *Routine Respiratory Exam Present: CTA bilaterally - *Routine Cardiovascular Exam Present: RRR, murmur - *Routine Abdominal Exam Present: soft - *Routine Extremities Exam Present: full ROM - *Routine Skin Exam Present: intact - *Routine Neurological Exam Present: alert, oriented X3, CN II-XII intact - Routine Psychiatric Exam Present: normal affect Results Labs on day of discharge: Labs from last 24 hours 12/13/17 12/13/17 05:15 05:15 WBC 7.7 D RBC 3.59 L Hgb 12.3 L Hct 38.7 L MCV 107.7 H MCH 34.3 H MCHC 31.8 RDW 14.3 Plt Count 148 MPV 7.2 L Neut % (Auto) 68.3 Lymph % (Auto) 21.9 [place] % (Auto) 9.0 Eos % (Auto) 0.4 Baso % (Auto) 0.4 Neut # (Auto) 5.3 Lymph # (Auto) 1.7 [place] # (Auto) 0.7 Eos # (Auto) 0.0 Baso # (Auto) 0.0 Sodium 140 Potassium 4.0 Chloride 105 Carbon Dioxide 27 Anion Gap 12.0 BUN 13 D Creatinine 0.82 D Estimated Creat Clear 85 Estimated GFR 97 Est GFR ( Amer) 117 D Glucose 101 Calcium 8.3 L Total Bilirubin 0.7 AST 36 D ALT 31 D Alkaline Phosphatase 54 Total Protein 7.0 Albumin 3.3 L Globulin 3.7 H Albumin/Globulin Ratio 0.9 L DS: Diagnosis - Discharge Diagnosis (1) Acute calculous cholecystitis Status: Acute (2) Tobacco use Status: Acute (3) Cervical disc disease with myelopathy Status: Chronic (4) Lumbar disc disease with radiculopathy Status: Chronic Discharge Plan - Patient Discharge Instructions ACTIVITY: No heavy lifting DIET: continue same diet Patient Instructions: Surgical Site Infection - Follow up Plan Follow up with: Hardeep Stevens MD [Staff Physician] - (1-2 weeks) Disposition: Home, Self-Assisted Medications: Home Medications Medication Instructions Recorded Confirmed Type Cholecalciferol (Vitamin D3) 1,000 unit PO DAILY 12/11/17 12/11/17 History [Vitamin D3 1,000 Unit Cap] Ergocalciferol (Vitamin D2) 50,000 unit PO QWEEK 12/11/17 12/11/17 History [Drisdol] Fluticasone Propionate 1 spray INTRANASAL ONCE 12/11/17 12/11/17 History Furosemide [Furosemide 40MG tAB] 40 mg PO DAILY 12/11/17 12/11/17 History Gabapentin [Gabapentin 400mg Cap] 400 mg PO TID 12/11/17 12/11/17 History Levothyroxine Sodium 25 mcg PO DAILY 12/12/17 12/12/17 History [Levothyroxine 25mcg (0.025mg) Tab] Prescriptions/Medication Reconciliation: New Nicotine [Nicoderm 21mg/24hr patch] 21 mg TD DAILYP PRN #30 patch.td24 PRN Reason: Nicotine Cravings Continue Gabapentin [Gabapentin 400mg Cap] 400 mg PO TID Fluticasone Propionate 1 spray INTRANASAL ONCE Ergocalciferol (Vitamin D2) [Drisdol] 50,000 unit PO QWEEK Cholecalciferol (Vitamin D3) [Vitamin D3 1,000 Unit Cap] 1,000 unit PO DAILY Levothyroxine Sodium [Levothyroxine 25mcg (0.025mg) Tab] 25 mcg PO DAILY Furosemide [Furosemide 40MG tAB] 40 mg PO DAILY
== END 2017-12-13 09:29 | disposition home or self-care (01) ==
LOC: ER 22:56 → 2ND 22:56
PROVIDERS: ADMIT Emergency Medicine; ATTEND Emergency Medicine
DX: K80.00 Calculus of gallbladder with acute cholecystitis without obstruction

== ENCOUNTER 2018-09-16 11:08 | Observation (INO) ==
[2018-09-16 11:25] LABS: Basophils # 0.1 K/mm3 (0-0.2); Eosinophils # 0.1 K/mm3 (0.0-0.4); Eosinophils % 1.7 % (0.1-12.0); Hematocrit 40.5 % (42.0-52.0); Hemoglobin 12.7 g/dL (14.1-18.0); Lymphocytes # 2.1 K/mm3 (0.7-4.5); Lymphocytes % 35.2 % (10-50); Mean Corpuscular HGB Conc 31.5 g/dL (31.8-35.4); Mean Platelet Volume 8.7 fl (7.4-10.4); Monocytes # 0.4 K/mm3 (0.1-1.0); Monocytes % 6.5 % (1.7-9.3); Neutrophils # 3.3 K/mm3 (1.8-7.8); Neutrophils % 55.6 % (37.0-80.0); Platelet Count 121 K/mm3 (142-424); Red Blood Count 3.93 M/mm3 (4.60-6.20); Red Cell Distribution Width 15.6 % (11.5-17.5); White Blood Count 5.9 K/mm3 (4.8-10.8)
--- NOTE | 2018-09-16 11:28 | Emergency Department Note ---
ED Disposition Clinical Impression: Syncope and collapse, Atrophy, cortical Disposition: Admitted as Observation Condition on Discharge: Fair Time of Disposition: 12:59 - Critical Care Critical Care Time: No Attestation: On , the high probability of a clinically significant, sudden or life threatening deterioration of the following system(s) required my full and direct attention, intervention and personal management. The time I documented below is in addition to time spent performing reported procedures but includes the following listed in this critical care notation. Medical Decision Making - Medical Records Medical records reviewed: Yes: I reviewed the patient's medical records. - Best Inquiry Pt receiving controlled substance: No Best was queried for this patient: No Vital Signs: 09/16/18 11:11 09/16/18 11:41 09/16/18 12:41 Temperature 97.8 F Temperature Source Oral Pulse Rate [Right Radial] 87 79 Respiratory Rate 16 20 Blood Pressure [Right Arm] 135/95 H 118/77 115/81 Blood Pressure Mean [Right Arm] 108 90 92 Blood Pressure Source [Right Arm] Automatic Cuff Automatic Cuff Blood Pressure Position [Right Arm] Sitting Supine 02 Sat by Pulse Oximetry 98 98 Oxygen Delivery Method Room Air Room Air 09/16/18 13:30 Temperature Temperature Source Pulse Rate [Right Radial] 78 Respiratory Rate 18 Blood Pressure [Right Arm] 111/61 Blood Pressure Mean [Right Arm] 77 Blood Pressure Source [Right Arm] Automatic Cuff Blood Pressure Position [Right Arm] Supine 02 Sat by Pulse Oximetry 97 Oxygen Delivery Method Room Air - Lab Data Lab results reviewed: Yes: I reviewed the patient's lab results. Lab Results 09/16/18 11:05: WBC 5.9, RBC 3.93 L, Hgb 12.7 L, Hct 40.5 L, MCV 103.0 H, MCH 32.4 H, MCHC 31.5 L, RDW 15.6, Plt Count 121 L, MPV 8.7, Neut % (Auto) 55.6, Lymph % (Auto) 35.2, [place] % (Auto) 6.5, Eos % (Auto) 1.7, Baso % (Auto) 1.0, Neut # (Auto) 3.3, Lymph # (Auto) 2.1, [place] # (Auto) 0.4, Eos # (Auto) 0.1, Baso # (Auto) 0.1 09/16/18 11:05: Sodium 130 L, Potassium 2.9 L*, Chloride 94 L, Carbon Dioxide 19 L, Anion Gap 19.9 H, BUN 5 L, Creatinine 1.07, Estimated Creat Clear 68, Estimated GFR 71, Est GFR ( Amer) 86, Glucose 144 H, Calcium 8.9, Total Bilirubin 1.3 H, AST 38 H, ALT 29, Alkaline Phosphatase 68, Troponin I < 0.02, Total Protein 7.0, Albumin 3.4, Globulin 3.6 H, Albumin/Globulin Ratio 0.9 L 09/16/18 11:05: Plasma/Serum Alcohol 0 Result diagrams: 09/16/18 11:05 09/16/18 11:05 Orders (Tests/Meds): ED MEDICATIONS Discontinued Medications Generic Name Dose Route Start Last Admin Trade Name Freq PRN Reason Stop Dose Admin Potassium Chloride 40 meq 09/16/18 11:48 09/16/18 12:05 Klor-Con 20meq Tablet PO 09/16/18 11:49 40 meq ONCE ONE Administration ORDERS Category Date Time Status CA echo limited Stat Exams 09/16/18 13:32 Ordered Drug Screen,Urine Stat Lab 09/16/18 11:15 Ordered CA carotid duplex BI Stat Y 09/16/18 13:32 Ordered - Physician Consults Physician Consulted: octavia Time: 13:00 Reason -: Admission, Pt condition Comment/Response: obs, get carotids and echo General Adult HPI - General Stated complaint: possible syncople episode Time Seen by Provider: 09/16/18 11:16 Mode of Arrival: EMS Source of Information: Patient Limitations: No Limitations - History of Present Illness HPI narrative: denies history of seizures/syncope/cardiac disease. no tongue biting, urinary incontinence, no post ictal state upon arrival though EMS said he was slow to respond. - Related Data Home Medications Medication Instructions Recorded Confirmed Cholecalciferol (Vitamin D3) 1,000 unit PO DAILY 12/11/17 12/23/17 [Vitamin D3 1,000 Unit Cap] Ergocalciferol (Vitamin D2) 50,000 unit PO QWEEK 12/11/17 12/23/17 [Drisdol] Fluticasone Propionate 1 spray INTRANASAL ONCE 12/11/17 12/23/17 Furosemide [Furosemide 40MG tAB] 40 mg PO DAILY 12/11/17 12/23/17 Levothyroxine Sodium 25 mcg PO DAILY 12/12/17 12/23/17 [Levothyroxine 25mcg (0.025mg) Tab] Previous Rx's Medication Instructions Recorded Nicotine [Nicoderm 21mg/24hr 21 mg TD DAILYP PRN #30 patch.td24 12/13/17 patch] gabapentin 400 mg capsule 400 mg PO TID #90 cap 12/23/17 Allergies Allergy/AdvReac Type Severity Reaction Status Date / Time tramadol [TRAMADOL] Allergy Unknown ITCHING Verified 12/23/17 09:23 adhesive tape AdvReac blisters Verified 12/23/17 09:23 [facility] History - Hepatitis A Screen Attestation statement:: This patient has been screened for Hepatitis A risk factors. I have reviewed the patient's past medical history: Yes Medical History: Reports:: Congestive Heart Failure, Deep Vein Thrombosis Denies:: Seizures Other Medical History: Reports: Hypothyroidism, Other Other Surgeries: Yes: Colonoscopy, Other Amputation: No Fractures: No - Social History Smoking Status: Current every day smoker Tobacco Type: cigarettes # Packs/Day (cigarettes): 1 Alcohol Intake: never Alcohol Intake Frequency:: a few times a week Substance Use Type: denies use Occupational Status: unemployed Housing: house Household Members: spouse Family Hx:: Cancer, Tuberculosis ROS Obtained: Yes All systems reviewed & no additional complaints - Constitutional Constitutional: Denies fever(s), Denies lethargy - Cardiovascular Cardiovascular: Denies chest pain - Respiratory Respiratory: No cough, No dyspnea - Gastrointestinal Gastrointestingal: Denies: nausea, vomiting - Musculoskeletal Musculoskeletal: Reports system reviewed and no additional complaints, except as docu, Denies joint pain, Denies joint stiffness, Denies joint swelling - Integumentary/Breasts Skin/Breast: Denies rash, Denies skin pain - Neurologic Neurologic: Denies headache(s), Denies numbness, Reports syncope - Hematologic/Lymphatic Henatologic/Lymphatic: Denies easy bleeding, Denies easy bruising Physical Exam - General General appearance: alert, in no apparent distress - Head Head exam: atraumatic, normocephalic, normal inspection - Eye Eye exam: Present: normal appearance, PERRL, EOMI - ENT ENT exam: Present: normal exam - Neck Neck exam: Present: normal inspection, full ROM, trachea midline, other (no bruits). Absent: meningismus, lymphadenopathy - Chest Chest inspection: Present: normal inspection, symmetric chest wall rise. Absent: tenderness - Respiratory Respiratory exam: Present: normal lung sounds bilaterally. Absent: respiratory distress - Cardiovascular Cardiovascular exam: Present: regular rate, normal rhythm. Absent: systolic murmur, rubs, JVD - Abdominal Exam Abdominal exam: Present: soft, normal bowel sounds. Absent: distention, tenderness, guarding - Extremities Exam Extremities exam: Present: full ROM, normal capillary refill, other (abrasions to both knees). Absent: normal inspection, calf tenderness - Back Exam Back exam: Present: normal inspection - Neurological Exam Neurological exam: Present: alert, oriented X3, CN II-XII intact, other (subtle delay in responses but generally back to baseline). Absent: motor sensory deficit - Psychiatric Psychiatric exam: Present: normal affect
[2018-09-16 11:38] LABS: Alanine Aminotransferase 29 U/L (12-78); Albumin Level 3.4 gm/dL (3.4-5.0); Albumin/Globulin Ratio 0.9 (1.1-1.8); Alkaline Phosphatase 68 U/L (46-116); Anion Gap 19.9 mEq/L (5-15); Aspartate Amino Transferase 38 U/L (15-37); Bilirubin,Total 1.3 mg/dL (0.2-1.0); Calcium 8.9 mg/dL (8.5-10.1); Carbon Dioxide 19 mmol/L (21.0-32.0); Chloride 94 mmol/L (98-107); Globulin 3.6 gm/dl (1.3-3.2); Glucose 144 mg/dL (74-106); Sodium 130 mmol/L (136-145)
[2018-09-16 11:51] LABS: Blood Urea Nitrogen 5 mg/dL (7-18)
--- NOTE | 2018-09-16 15:33 | Cardiology Report ---
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 Left atrium is normal size, left ventricle is normal size, there is moderately reduced left ventricular systolic function, visually estimated ejection fraction 40%, left ventricle is globally hypokinetic. 2. The right atrium and right ventricle are normal size and contractility. 3. The aortic valve is minimally thickened and fibrosed. 4. The mitral and tricuspid valve leaflets are grossly normal. 5. The pulmonic valve is poorly visualized. 6. No significant pericardial effusion noted. DOPPLER INTERROGATION: Doppler interrogation of the aortic, mitral and tricuspid valvular presence of mild mitral and tricuspid regurgitation, tricuspid regurgitation jet velocity is inadequate for calculation of the right ventricular systolic pressure, grade 1 diastolic dysfunction seen without tissue Doppler evidence of raised left atrial pressure. CONCLUSION: 1. Normal left ventricular size, moderately reduced left ventricular systolic function, visually estimated ejection fraction 40% with left ventricle is globally hypokinetic, grade 1 diastolic dysfunction seen without tissue Doppler evidence of raised left atrial pressure. 2. Mild mitral and tricuspid addition 3. No significant pericardial effusion noted.
--- NOTE | 2018-09-16 15:47 | Carotid Imaging Report ---
"Cerebrovascular Exam Indications: 780.2 Syncope and collapse. IMPRESSIONS 1. The bilateral vertebral arteries are patent with normal antegrade flow. 2. Study suggests 20-49% stenosis involving the right internal carotid artery. 3. Study suggests less than 20% stenosis involving the left internal carotid artery. History: Risk factors: Current tobacco use. Carotid duplex study. Complete study and Doppler flow study including spectral analysis, color and altamirano scale imaging. Height: Height: 177.8cm. Height: 70in. Weight: Weight: 63.5kg. Weight: 139.7lb. Body mass index: BMI: 20.1kg/m^2. Body surface area: BSA: 1.76m^2. Location: Vascular laboratory. Patient status: Inpatient. Tables: Arterial flow: + +--------+--------+ |Location |V sys |V ed | + +--------+--------+ |Right CCA - proximal|75.4cm/s|20.1cm/s| + +--------+--------+ |Right CCA - distal |59.4cm/s|19.2cm/s| + +--------+--------+ |Right ECA |47.1cm/s|--------| + +--------+--------+ |Right ICA - proximal|55.8cm/s|24.8cm/s| + +--------+--------+ |Right ICA - mid |59.7cm/s|22cm/s | + +--------+--------+ |Right ICA - distal |81.7cm/s|37.1cm/s| + +--------+--------+ |Right vertebral |44.6cm/s|--------| + +--------+--------+ |Left CCA - proximal |99.3cm/s|30.2cm/s| + +--------+--------+ |Left CCA - distal |83cm/s |24.5cm/s| + +--------+--------+ |Left ECA |51.9cm/s|--------| + +--------+--------+ |Left ICA - proximal |49.1cm/s|21.6cm/s| + +--------+--------+ |Left ICA - mid |69.4cm/s|28.8cm/s| + +--------+--------+ |Left ICA - distal |47.1cm/s|22cm/s | + +--------+--------+ |Left vertebral |50.3cm/s|--------| + +--------+--------+ Velocity ratios: + + + + + + | |Right, V sys|Right, V ed|Left, V sys|Left, V ed| + + + + + + |Max ICA/dist CCA|1.38 |1.93 |0.84 |1.18 | + + + + + + (Report amended ) Electronically signed by: Lupillo Voss [id number]"
--- NOTE | 2018-09-16 20:38 | History & Physical Report ---
*Admission Date: 09/16/18 *Chief complaint: syncope *History of present illness: this pt reports he was in baseline health yesterday afternoon and dev feeling he could not talk and had syncopal episode and was brought to ed and has returned to baseline - he denied any prev cva or sz and had no incont - he has no known heart dis and denied etoh or drug use -pt denied visual loss - he was seen in the ed and admitted for eval and tele monitoring - [facility] History I have reviewed the patient's past medical history: Yes Medical History: Reports:: Congestive Heart Failure, Deep Vein Thrombosis Denies:: Cancer, Diabetes Mellitus Type 1, Diabetes Mellitus Type 2, MRSA, Seizures *Have you ever received a pneumonia vaccine?: No *Have you received a flu vaccine this season?: Yes Other Medical History: Reports: Hypothyroidism, Other Other Surgeries: Yes: Colonoscopy, Other Amputation: No Fractures: No - *Social History Educational Level: Attended High School Smoking Status: Current every day smoker Tobacco Type: cigarettes # Packs/Day (cigarettes): 1 Alcohol Intake: current Alcohol Intake Frequency:: a few times a week Substance Use Type: denies use *Occupational Status:: unemployed, disabled Housing: apartment Household Members: spouse *Travel in the last 8 weeks: None - Psychiatric History Expresses thoughts of harming self/others: None Suicide Plan Description: No Plan Family Hx:: Cancer, Tuberculosis Review of Systems - Review of Systems Review of systems:: pertinent systems reviewed and negative unless documented below - Constitutional Denies fever(s) - Eyes Denies change in vision - ENT Denies sore throat, Denies dizziness - *Cardiovascular Reports other (occ episodes of elevated heart rate ), Denies chest pain, Denies shortness of breath, Denies lightheadedness, Denies rapid, pounding, or irregular heartbeat, Denies radiating jaw, neck or arm pain - *Respiratory Denies cough - *Gastrointestinal Denies abdominal pain - *Genitourinary Denies blood in urine - *Musculoskeletal Denies joint pain - Integumentary/Breasts Denies rash - *Neurologic Reports fainting, Denies headache(s), Denies numbness - Psychiatric Denies anxiety Meds Home Medications Medication Instructions Recorded Confirmed Type Cholecalciferol (Vitamin D3) 1,000 unit PO DAILY 12/11/17 09/16/18 History [Vitamin D3 1,000 Unit Cap] Ergocalciferol (Vitamin D2) 50,000 unit PO QWEEK 12/11/17 09/16/18 History [Drisdol] Fluticasone Propionate 1 spray INTRANASAL ONCE 12/11/17 09/16/18 History Furosemide [Furosemide 40MG tAB] 40 mg PO DAILY 12/11/17 09/16/18 History Levothyroxine Sodium 25 mcg PO DAILY 12/12/17 09/16/18 History [Levothyroxine 25mcg (0.025mg) Tab] Nicotine [Nicoderm 21mg/24hr 21 mg TD DAILYP PRN #30 patch.td24 12/13/17 09/16/18 Rx patch] gabapentin 400 mg capsule 400 mg PO TID #90 cap 12/23/17 09/16/18 Rx Allergies Allergy/AdvReac Type Severity Reaction Status Date / Time tramadol [TRAMADOL] Allergy Unknown ITCHING Verified 12/23/17 09:23 adhesive tape AdvReac blisters Verified 12/23/17 09:23 Exam Vital signs and Labs for Last 24 Hours: Temp Pulse Resp BP Pulse Ox 98.1 F 83 17 109/67 L 98 09/16/18 20:00 09/16/18 20:00 09/16/18 20:00 09/16/18 20:00 09/16/18 20:00 Laboratory Results - last 24 hr 09/16/18 11:05: WBC 5.9, RBC 3.93 L, Hgb 12.7 L, Hct 40.5 L, MCV 103.0 H, MCH 32.4 H, MCHC 31.5 L, RDW 15.6, Plt Count 121 L, MPV 8.7, Neut % (Auto) 55.6, Ly mph % (Auto) 35.2, [place] % (Auto) 6.5, Eos % (Auto) 1.7, Baso % (Auto) 1.0, Neut # (Auto) 3.3, Lymph # (Auto) 2.1, [place] # (Auto) 0.4, Eos # (Auto) 0.1, Baso # (Auto) 0.1 09/16/18 11:05: Sodium 130 L, Potassium 2.9 L*, Chloride 94 L, Carbon Dioxide 19 L, Anion Gap 19.9 H, BUN 5 L, Creatinine 1.07, Estimated Creat Clear 68, Estimated GFR 71, Est GFR ( Amer) 86, Glucose 144 H, Calcium 8.9, Total Bilirubin 1.3 H, AST 38 H, ALT 29, Alkaline Phosphatase 68, Troponin I < 0.02, Total Protein 7.0, Albumin 3.4, Globulin 3.6 H, Albumin/Globulin Ratio 0.9 L 09/16/18 11:05: Plasma/Serum Alcohol 0 09/16/18 17:00: Troponin I < 0.02 09/16/18 20:05: Troponin I < 0.02 I & O for Last 24 hours: Intake & Output 09/14/18 09/15/18 09/16/18 09/17/18 11:59 11:59 11:59 11:59 Intake Total 313 / 313 Balance 313 / 313 Weight 140 lb 119 lb 1 oz - Constitutional no acute distress, thin - *Routine HEENT Exam Head: Present: normocephalic Eye: Present: EOMI, PERRL. Absent: conjunctival icterus ENT: Present: mucous membranes dry Comments: no evid of tongue biting - *Routine Neck Exam Present: trachea midline. Absent: JVD, carotid bruit, thyromegaly - *Routine Respiratory Exam Present: CTA bilaterally - *Routine Cardiovascular Exam Present: RRR, murmur - *Routine Abdominal Exam Present: soft. Absent: tenderness - *Routine Extremities Exam Present: full ROM. Absent: calf tenderness - *Routine Skin Exam Present: intact - *Routine Neurological Exam Present: alert, oriented X3, CN II-XII intact, normal speech. Absent: sensory deficit, motor deficit, altered mental status, facial asymmetry, tremors - Routine Psychiatric Exam Present: normal affect Assessment and Plan (1) Syncope and collapse Current visit: Yes Status: Acute Category: Medical Code(s): R55 - Syncope and collapse (2) Cervical disc disease with myelopathy Current visit: No Status: Chronic Category: Medical Code(s): M50.00 - Cervical disc disorder with myelopathy, unspecified cervical region (3) Lumbar disc disease with radiculopathy Current visit: No Status: Chronic Category: Medical Code(s): M51.16 - Intervertebral disc disorders with radiculopathy, lumbar region (4) Hypothyroidism Current visit: No Status: Chronic Category: Medical Code(s): E03.9 - Hypothyroidism, unspecified (5) Vitamin D deficiency Current visit: No Status: Chronic Category: Medical Code(s): E55.9 - Vitamin D deficiency, unspecified (6) Tobacco use Current visit: Yes Status: Acute Category: Medical Code(s): Z72.0 - Tobacco use (7) Thrombocytopenia Current visit: Yes Status: Acute Category: Medical Code(s): D69.6 - Thrombocytopenia, unspecified (8) Elevated MCV Current visit: Yes Status: Acute Category: Medical Code(s): R71.8 - Other abnormality of red blood cells (9) Anemia Current visit: Yes Status: Acute Qualifiers: Anemia type: unspecified type Qualified Code(s): D64.9 - Anemia, unspecified Category: Medical Code(s): D64.9 - Anemia, unspecified (10) Left ventricular hypokinesis Current visit: Yes Status: Acute Category: Medical Code(s): I51.89 - Other ill-defined heart diseases
[2018-09-17 07:20] LABS: Eosinophils # 0.1 K/mm3 (0.0-0.4); Eosinophils % 2.5 % (0.1-12.0); Hemoglobin 11.8 g/dL (14.1-18.0); Lymphocytes # 1.1 K/mm3 (0.7-4.5); Mean Corpuscular HGB Conc 31.8 g/dL (31.8-35.4); Mean Corpuscular Volume 104.8 fl (80-94); Mean Platelet Volume 8.4 fl (7.4-10.4); Monocytes # 0.3 K/mm3 (0.1-1.0); Neutrophils # 2.5 K/mm3 (1.8-7.8); Neutrophils % 61.6 % (37.0-80.0); Platelet Count 118 K/mm3 (142-424); Red Blood Count 3.54 M/mm3 (4.60-6.20); Red Cell Distribution Width 15.8 % (11.5-17.5); White Blood Count 4.1 K/mm3 (4.8-10.8)
[2018-09-17 07:28] LABS: Anion Gap 9.9 mEq/L (5-15); Calcium 8.3 mg/dL (8.5-10.1)
--- NOTE | 2018-09-17 08:53 | Discharge Summary ---
General - General Admission date:: 09/16/18 Discharge date: 09/17/18 HPI HPI: this pt reports he was in baseline health yesterday afternoon and dev feeling he could not talk and had syncopal episode and was brought to ed and has returned to baseline - he denied any prev cva or sz and had no incont - he has no known heart dis and denied etoh or drug use -pt denied visual loss - he was seen in the ed and admitted for eval and tele monitoring - Hospital Course Hospital Course: pt remained stable in hosp with no repeat episodes of syncope and had stable tele and labs were stable - no chest pain - discussed pt with dr stokes and will place on asa and statin and holter and will follow up with card and pcp- uncertain as to etiology - but will do card eval and neuro eval as op Objective Vital signs: Temp Pulse Resp BP Pulse Ox 98.3 F 82 18 128/85 96 09/17/18 08:00 09/17/18 08:00 09/17/18 08:00 09/17/18 08:00 09/17/18 08:00 no acute distress, thin - *Routine HEENT Exam Head: Present: normocephalic Eye: Present: EOMI, PERRL ENT: Present: mucous membranes dry - *Routine Neck Exam Present: supple, trachea midline. Absent: JVD, carotid bruit - *Routine Respiratory Exam Present: CTA bilaterally - *Routine Cardiovascular Exam Present: RRR, murmur - *Routine Abdominal Exam Present: soft - *Routine Extremities Exam Absent: calf tenderness - *Routine Skin Exam Present: intact - *Routine Neurological Exam Present: alert, oriented X3, CN II-XII intact - Routine Psychiatric Exam Present: normal affect Results Labs on day of discharge: Labs from last 24 hours 09/17/18 09/17/18 09/16/18 06:00 06:00 20:05 WBC 4.1 L D RBC 3.54 L Hgb 11.8 L Hct 37.0 L MCV 104.8 H MCH 33.3 H MCHC 31.8 RDW 15.8 Plt Count 118 L MPV 8.4 Neut % (Auto) 61.6 Lymph % (Auto) 28.0 Martin % (Auto) 7.0 Eos % (Auto) 2.5 Baso % (Auto) 1.0 Neut # (Auto) 2.5 Lymph # (Auto) 1.1 Martin # (Auto) 0.3 Eos # (Auto) 0.1 Baso # (Auto) 0.0 Sodium 140 Potassium 3.9 D Chloride 107 Carbon Dioxide 27 D Anion Gap 9.9 BUN 3 L D Creatinine 0.76 D Estimated Creat Clear 84 Estimated GFR 106 Est GFR ( Amer) 128 D Glucose 92 D Calcium 8.3 L Total Bilirubin AST ALT Alkaline Phosphatase Troponin I < 0.02 Total Protein Albumin Globulin Albumin/Globulin Ratio Plasma/Serum Alcohol 09/16/18 09/16/18 09/16/18 17:00 11:05 11:05 WBC RBC Hgb Hct MCV MCH MCHC RDW Plt Count MPV Neut % (Auto) Lymph % (Auto) Martin % (Auto) Eos % (Auto) Baso % (Auto) Neut # (Auto) Lymph # (Auto) Martin # (Auto) Eos # (Auto) Baso # (Auto) Sodium 130 L Potassium 2.9 L* Chloride 94 L Carbon Dioxide 19 L Anion Gap 19.9 H BUN 5 L Creatinine 1.07 Estimated Creat Clear 68 Estimated GFR 71 Est GFR ( Amer) 86 Glucose 144 H Calcium 8.9 Total Bilirubin 1.3 H AST 38 H ALT 29 Alkaline Phosphatase 68 Troponin I < 0.02 < 0.02 Total Protein 7.0 Albumin 3.4 Globulin 3.6 H Albumin/Globulin Ratio 0.9 L Plasma/Serum Alcohol 0 09/16/18 11:05 WBC 5.9 RBC 3.93 L Hgb 12.7 L Hct 40.5 L MCV 103.0 H MCH 32.4 H MCHC 31.5 L RDW 15.6 Plt Count 121 L MPV 8.7 Neut % (Auto) 55.6 Lymph % (Auto) 35.2 Martin % (Auto) 6.5 Eos % (Auto) 1.7 Baso % (Auto) 1.0 Neut # (Auto) 3.3 Lymph # (Auto) 2.1 Martin # (Auto) 0.4 Eos # (Auto) 0.1 Baso # (Auto) 0.1 Sodium Potassium Chloride Carbon Dioxide Anion Gap BUN Creatinine Estimated Creat Clear Estimated GFR Est GFR ( Amer) Glucose Calcium Total Bilirubin AST ALT Alkaline Phosphatase Troponin I Total Protein Albumin Globulin Albumin/Globulin Ratio Plasma/Serum Alcohol DS: Diagnosis - Discharge Diagnosis (1) Syncope and collapse Status: Acute (2) Cervical disc disease with myelopathy Status: Chronic (3) Lumbar disc disease with radiculopathy Status: Chronic (4) Hypothyroidism Status: Chronic (5) Vitamin D deficiency Status: Chronic (6) Tobacco use Status: Acute (7) Thrombocytopenia Status: Acute (8) Elevated MCV Status: Acute (9) Anemia Status: Acute (10) Left ventricular hypokinesis Status: Acute Discharge Plan - Patient Discharge Instructions ACTIVITY: Continue current activity DIET: continue same diet - Follow up Plan Follow up with: Patrick Sigala MD [Primary Care Provider] - Disposition: Home, [facility] Medications: Home Medications Medication Instructions Recorded Confirmed Type Cholecalciferol (Vitamin D3) 1,000 unit PO DAILY 12/11/17 09/16/18 History [Vitamin D3 1,000 Unit Cap] Ergocalciferol (Vitamin D2) 50,000 unit PO QWEEK 12/11/17 09/16/18 History [Drisdol] Fluticasone Propionate 1 spray INTRANASAL ONCE 12/11/17 09/16/18 History Furosemide [Furosemide 40MG tAB] 40 mg PO DAILY 12/11/17 09/16/18 History Levothyroxine Sodium 25 mcg PO DAILY 12/12/17 09/16/18 History [Levothyroxine 25mcg (0.025mg) Tab] gabapentin 400 mg capsule 400 mg PO TID #90 cap 12/23/17 09/16/18 Rx Aspirin [Aspirin 325mg Tab] 325 mg PO DAILY 90 Days #90 tab 09/17/18 Rx Atorvastatin Calcium [Lipitor 10mg 10 mg PO DAILY 90 Days #90 tab 09/17/18 Rx Tablet] Nicotine [Nicoderm 21mg/24hr 21 mg TD DAILYP PRN 30 Days #30 09/17/18 Rx patch] patch.td24 Prescriptions/Medication Reconciliation: New Aspirin [Aspirin 325mg Tab] 325 mg PO DAILY 90 Days #90 tab Atorvastatin Calcium [Lipitor 10mg Tablet] 10 mg PO DAILY 90 Days #90 tab Continued gabapentin 400 mg capsule 400 mg PO TID #90 cap Fluticasone Propionate 1 spray INTRANASAL ONCE Ergocalciferol (Vitamin D2) [Drisdol] 50,000 unit PO QWEEK Cholecalciferol (Vitamin D3) [Vitamin D3 1,000 Unit Cap] 1,000 unit PO DAILY Levothyroxine Sodium [Levothyroxine 25mcg (0.025mg) Tab] 25 mcg PO DAILY Nicotine [Nicoderm 21mg/24hr patch] 21 mg TD DAILYP PRN 30 Days #30 patch.td24 PRN Reason: Nicotine Cravings Discontinued Furosemide [Furosemide 40MG tAB] 40 mg PO DAILY
[2018-09-17 09:23] LABS: Chol/HDL Ratio 1.7 (1-3.5); Thyroid Stimulating Hormone 1.69 uIU/ml (0.358-3.740)
== END 2018-09-17 09:22 | disposition home or self-care (01) ==
LOC: 2ND 11:08 → ER 11:08 → 2ND 14:28
PROVIDERS: ADMIT Emergency Medicine; ATTEND Emergency Medicine
CPT/HCPCS: 36415; 70450; 80048; 80053; 80061; 84436; 84443; 84484; 85025; 85060; 93005; 93225; 93226; 93306; 93880; 99285; G0378

== ENCOUNTER 2018-12-27 21:14 | Observation (INO) ==
[2018-12-27 21:27] LABS: Microscopic, Urine URINE MICROSCOPIC (MICROSCOPIC)
[2018-12-27 21:34] LABS: Basophils # 0.1 K/mm3 (0-0.2); Basophils % 1.3 % (0.1-2.0); Eosinophils % 0.4 % (0.1-12.0); Hematocrit 42.9 % (42.0-52.0); Hemoglobin 13.5 g/dL (14.1-18.0); Lymphocytes # 1.9 K/mm3 (0.7-4.5); Lymphocytes % 26.5 % (10-50); Mean Corpuscular HGB Conc 31.4 g/dL (31.8-35.4); Mean Corpuscular Volume 117.3 fl (80-94); Mean Platelet Volume 7.9 fl (7.4-10.4); Monocytes # 0.4 K/mm3 (0.1-1.0); Monocytes % 5.6 % (1.7-9.3); Neutrophils # 4.8 K/mm3 (1.8-7.8); Neutrophils % 66.1 % (37.0-80.0); Platelet Count 313 K/mm3 (142-424); Red Blood Count 3.65 M/mm3 (4.60-6.20); Red Cell Distribution Width 14.9 % (11.5-17.5); White Blood Count 7.3 K/mm3 (4.8-10.8)
[2018-12-27 21:35] LABS: Appearance,Urine CLEAR (Clear); Bilirubin,Urine Negative (Negative); Blood, Urine 1+ (Negative); Color,Urine YELLOW (Yellow); Glucose,Urine (UA) Negative (Negative); Ketones,Urine Negative (Negative); Leukocyte Esterase,Urine Negative (Negative); PH,Urine 6.5 (5.0-8.5); Protein,Urine TRACE (Negative); Specific Gravity, Urine 1.015 (1.005-1.030); Urobilinogen,Urine 0.2 EU/dl (0.2)
[2018-12-27 21:41] LABS: Amphetamine/Metha Screen,Urine Positive ng/mL (<1000); Barbiturates Screen,Urine Negative ng/mL (<200); Benzodiazepines Screen,Urine Negative ng/mL (<200); Cannabinoid Screen,Urine Negative ng/mL (<50); Cocaine Screen,Urine Negative ng/mL (<300); Methadone Screen,Urine Negative ng/mL (<300); Opiate Screen,Urine Negative ng/mL (<300); Phencyclidine Screen,Urine Negative ng/mL (<25)
[2018-12-27 21:44] LABS: Alanine Aminotransferase 33 U/L (12-78); Albumin Level 3.7 gm/dL (3.4-5.0); Albumin/Globulin Ratio 1.1 (1.1-1.8); Alkaline Phosphatase 72 U/L (46-116); Aspartate Amino Transferase 21 U/L (15-37); Bilirubin,Total 1.2 mg/dL (0.2-1.0); Blood Urea Nitrogen 4 mg/dL (7-18); Calcium 8.3 mg/dL (8.5-10.1); Carbon Dioxide 18 mmol/L (21.0-32.0); Chloride 98 mmol/L (98-107); Globulin 3.5 gm/dl (1.3-3.2); Glucose 172 mg/dL (74-106); Sodium 133 mmol/L (136-145); Total Protein,Serum 7.2 gm/dL (6.4-8.2)
[2018-12-27 21:47] LABS: C-Reactive Protein < 0.2 mg/dL (0.0-0.9); Ethyl Alcohol 0 mg/dL (0-99)
[2018-12-27 21:49] LABS: WBC,Urine Occasional #/hpf (0-3)
[2018-12-27 21:50] LABS: Bacteria,Urine Trace /lpf; Squamous Epithelial Cell,Urine Occasional #/hpf (0-5)
--- NOTE | 2018-12-27 21:56 | Emergency Department Note ---
ED Disposition Clinical Impression: New onset seizure, Tobacco use, Elevated troponin, Amphetamine abuse Hypothyroidism Qualifiers: Hypothyroidism type: acquired Qualified Code(s): E03.9 - Hypothyroidism, unspecified Disposition: Admitted as Observation Condition on Discharge: Good Referrals: Patrick Sigala MD [Primary Care Provider] - - Critical Care Critical Care Time: No Attestation: On 12/27/18, the high probability of a clinically significant, sudden or life threatening deterioration of the following system(s) required my full and direct attention, intervention and personal management. The time I documented below is in addition to time spent performing reported procedures but includes the following listed in this critical care notation. Medical Decision Making - Medical Records Medical records reviewed: Yes: I reviewed the patient's medical records. - Best Inquiry Pt receiving controlled substance: No Vital Signs: 12/27/18 21:14 Temperature 97.7 F Temperature Source Rectal Pulse Rate [Right] 135 H Respiratory Rate 18 Blood Pressure [Right Arm] 132/88 Blood Pressure Mean [Right Arm] 102 02 Sat by Pulse Oximetry 98 Oxygen Delivery Method Nasal Cannula Oxygen Flow Rate (LPM) 2 - Lab Data Lab results reviewed: Yes: I reviewed the patient's lab results. Lab Results 12/27/18 21:20: Urine Color Yellow, Urine Appearance Clear, Urine pH 6.5, Ur Specific [place] 1.015, Urine Protein Trace, Urine Glucose (UA) Negative, Urine Ketones Negative, Urine Blood 1+, Urine Nitrate Negative, Urine Bilirubin Negative, Urine Urobilinogen 0.2, Ur Leukocyte Esterase Negative, Urine WBC Occasional, Ur Squamous Epith Cells Occasional, Urine Bacteria Trace 12/27/18 21:20: WBC 7.3, RBC 3.65 L, Hgb 13.5 L, Hct 42.9, MCV 117.3 H, MCH 36.9 H, MCHC 31.4 L, RDW 14.9, Plt Count 313, MPV 7.9, Neut % (Auto) 66.1, Lymph % (Auto) 26.5, [place] % (Auto) 5.6, Eos % (Auto) 0.4, Baso % (Auto) 1.3, Neut # (Auto) 4.8, Lymph # (Auto) 1.9, [place] # (Auto) 0.4, Eos # (Auto) 0.0, Baso # (Auto) 0.1 12/27/18 21:20: Sodium 133 L, Potassium 3.0 L, Chloride 98, Carbon Dioxide 18 L, Anion Gap 20.0 H, BUN 4 L, Creatinine 1.06, Estimated Creat Clear 68, Estimated GFR 72, Est GFR ( Amer) 87, Glucose 172 H, Calcium 8.3 L, Total Bilirubin 1.2 H, AST 21, ALT 33, Alkaline Phosphatase 72, Troponin I 0.23 H, C-Reactive Protein < 0.2, Total Protein 7.2, Albumin 3.7, Globulin 3.5 H, Albumin/Globulin Ratio 1.1, Plasma/Serum Alcohol 0 12/27/18 21:20: Lactate 9.5 H 12/27/18 21:20: Urine Opiates Screen Negative, Urine Methadone Screen Negative, Ur Barbituates Screen Negative, Ur Phencyclidine Scrn Negative, Ur Amphetamines Screen Positive H, U Benzodiazepines Scrn Negative, Urine Cocaine Screen Negative, U Marijuana (THC) Screen Negative 12/27/18 21:20: ESR 4 12/28/18 01:35: Lactate 0.6 12/28/18 01:35: Troponin I 0.35 H Result diagrams: 12/27/18 21:20 12/27/18 21:20 Orders (Tests/Meds): ED MEDICATIONS Generic Name Dose Route Start Last Admin Trade Name Freq PRN Reason Stop Dose Admin Sodium Chloride 1,000 mls @ 999 mls/hr 12/27/18 21:30 12/27/18 21:35 Sod Chlor 0.9% 1000ml Bag IV 12/27/18 22:30 999 mls/hr .Q1H1M STEFFEN Administration Sodium Chloride 10 ml 12/27/18 21:22 Sodium Chloride 0.9% 10ml Vial IV 01/26/19 21:21 NEEDED PRN to Dilute Lorazepam inj Discontinued Medications Generic Name Dose Route Start Last Admin Trade Name Freq PRN Reason Stop Dose Admin Levetiracetam 1,500 mg/ Sodium 115 mls @ 230 mls/hr 12/27/18 21:22 12/27/18 21:50 Chloride IV 12/27/18 21:23 230 mls/hr ONCE ONE Administration Lorazepam 2 mg 12/27/18 21:22 12/27/18 21:22 Ativan 2mg/Ml Vial IV 12/27/18 21:23 2 mg ONCE ONE Administration ORDERS Category Date Time Status CT head/brain wo con Stat Cat Scan 12/27/18 21:20 Taken XR chest AP Stat Exams 12/27/18 21:20 Taken Blood Culture Stat Micro 12/27/18 21:20 Received ECG Request by /Terence Stat Y 12/27/18 21:20 Ordered - Radiology Data #1 Image(s): Chest Image Reviewed: Yes I reviewed the patient's radiology image Preliminary Findings: Normal/NAD - CT Data CT Scan: Head Time Received: 03:[address] Reviewed: Yes: I have viewed the radiologist's interpretation Preliminary Findings: Normal/NAD - ECG Data Tracing #1 Arrhythmias present: sinus tach Ischemic changes: non-specific ST-T wave changes Seizures HPI - General Chief Complaint: Seizure Stated Complaint: seizure Time Seen by Provider: 12/27/18 21:20 Mode of Arrival: EMS Source of Information: EMS, Medical Record Limitations: Altered Mental Status Description of Symptoms (Recalled from ER Triage Doc. by RN): Report from ems pt had seizure like acitivty and actively seized whil loading to [facility]. Pt is postical at this time. - History of Present Illness HPI Narrative: pt with sz this pm with no hx of sz and no fever or rash - no known trauma - MD complaint: seizure Onset (ago): hour(s) Description of Episode: tonic-clonic movement, bladder incontinence, post-event confusion Witnessed: yes - by EMS Trauma: No Seizure History: none Place: home Possible Precipitating Event: none Associated symptoms: denies other symptoms Treatments prior to arrival: none - Related Data Home Medications Medication Instructions Recorded Confirmed Cholecalciferol (Vitamin D3) 1,000 unit PO DAILY 12/11/17 12/21/18 [Vitamin D3 1,000 Unit Cap] Ergocalciferol (Vitamin D2) 50,000 unit PO QWEEK 12/11/17 12/21/18 [Drisdol] Fluticasone Propionate 1 spray INTRANASAL ONCE 12/11/17 12/21/18 Levothyroxine Sodium 25 mcg PO DAILY 12/12/17 12/21/18 [Levothyroxine 25mcg (0.025mg) Tab] Aspirin [Aspirin 325mg Tab] 325 mg PO DAILY 12/21/18 12/21/18 Atorvastatin Calcium [Lipitor 10mg 10 mg PO DAILY 12/21/18 12/21/18 Tablet] Previous Rx's Medication Instructions Recorded gabapentin 400 mg capsule 400 mg PO TID #90 cap 12/23/17 Nicotine [Nicoderm 21mg/24hr 21 mg TD DAILYP PRN 30 Days #30 09/17/18 patch] patch.td24 Omeprazole [Omeprazole 20mg Tab] 20 mg PO DAILY #30 tab 12/21/18 Promethazine HCl [Phenergan 25mg 25 mg PO Q6H PRN 3 Days #10 tab 12/21/18 tab] Allergies Allergy/AdvReac Type Severity Reaction Status Date / Time tramadol [TRAMADOL] Allergy Unknown ITCHING Verified 12/23/17 09:23 adhesive tape AdvReac blisters Verified 12/23/17 09:[address] [facility] History - Hepatitis A Screen Drug use history?: No High risk sexual behaviors?: No History of sexually transmitted infection?: No Currently employed?: No Childcare worker?: No Do you have indoor plumbing?: Yes Do you have electricity?: Yes Attestation statement:: This patient has been screened for Hepatitis A risk factors. I have reviewed the patient's past medical history: Yes Medical History: Reports:: Congestive Heart Failure, Deep Vein Thrombosis Denies:: Cancer, Diabetes Mellitus Type 1, Diabetes Mellitus Type 2, MRSA, Seizures Other Medical History: Reports: Hypothyroidism, Other Other Surgeries: Yes: Colonoscopy, Other Amputation: No Fractures: No - Social History Smoking Status: Current every day smoker Tobacco Type: cigarettes # Packs/Day (cigarettes): 1 Alcohol Intake: never Alcohol Intake Frequency:: a few times a week Substance Use Type: denies use Occupational Status: unemployed, disabled Housing: apartment Household Members: spouse Family Hx:: Cancer, Tuberculosis ROS Obtained: Yes All systems reviewed & no additional complaints - Constitutional Constitutional: Denies fever(s) - Eyes Eyes: Denies change in vision - ENT Ears, Nose, Mouth, and Throat: Denies sore throat - Cardiovascular Cardiovascular: Denies chest pain - Respiratory Respiratory: No cough, Yes dyspnea - Gastrointestinal Gastrointestingal: Denies: abdominal pain - Genitourinary Male Genitourinary: Denies hematuria - Musculoskeletal Musculoskeletal: Denies joint pain - Integumentary/Breasts Skin/Breast: Denies rash, Denies skin pain - Neurologic Neurologic: Reports seizure-like activity Physical Exam - General General appearance: other (post ictal ) - Head Head exam: normocephalic - Eye Eye exam: Present: PERRL, EOMI. Absent: scleral icterus - ENT ENT exam: Present: mucous membranes dry - Neck Neck exam: Present: trachea midline - Respiratory Respiratory exam: Present: normal lung sounds bilaterally. Absent: respiratory distress - Cardiovascular Cardiovascular exam: Present: regular rate, systolic murmur - Abdominal Exam Abdominal exam: Present: soft - Extremities Exam Extremities exam: Absent: calf tenderness - Neurological Exam Neurological exam: Present: other (post-ictal with no focal changes ) - Skin Skin exam: Absent: rash
[2018-12-28 05:38] LABS: Basophils # 0.1 K/mm3 (0-0.2); Basophils % 0.8 % (0.1-2.0); Eosinophils # 0.1 K/mm3 (0.0-0.4); Eosinophils % 1.1 % (0.1-12.0); Hematocrit 36.1 % (42.0-52.0); Lymphocytes # 1.4 K/mm3 (0.7-4.5); Lymphocytes % 20.5 % (10-50); Mean Corpuscular HGB Conc 32.5 g/dL (31.8-35.4); Mean Corpuscular Volume 113.2 fl (80-94); Mean Platelet Volume 7.6 fl (7.4-10.4); Monocytes # 0.3 K/mm3 (0.1-1.0); Monocytes % 4.7 % (1.7-9.3); Neutrophils # 5.1 K/mm3 (1.8-7.8); Neutrophils % 72.9 % (37.0-80.0); Platelet Count 243 K/mm3 (142-424); Red Blood Count 3.19 M/mm3 (4.60-6.20); Red Cell Distribution Width 15.2 % (11.5-17.5); White Blood Count 6.9 K/mm3 (4.8-10.8)
[2018-12-28 05:45] LABS: Hemoglobin 11.7 g/dL (14.1-18.0)
[2018-12-28 05:47] LABS: Anion Gap 7.7 mEq/L (5-15); Calcium 8.2 mg/dL (8.5-10.1)
--- NOTE | 2018-12-28 07:49 | Pharmacy Consult Notes ---
[facility] Pharmacy VTE Monitoring - Patient Demographics Admission date: 12/27/18 Report Date: 12/28/18 Time: 07:49 Allergies/Adverse Reactions: Patient Allergies tramadol [TRAMADOL] Allergy (Unknown, Verified 12/23/17 09:23) ITCHING adhesive tape Adverse Reaction (Verified 12/23/17 09:23) blisters Height: 1.78 m Weight: 55.111 kg Patient Problems: Current Active Problems (Last Updated 08/30/17 @ 12:29 by TG Sanchez) Tobacco use (Acute) New onset seizure (Acute) Elevated troponin (Acute) Amphetamine abuse (Acute) Hypothyroidism (Chronic) - VTE Risk Labs: VTE Related Lab Results Hgb 11.7 g/dL (14.1-18.0) L D 12/28/18 05:25 Hct 36.1 % (42.0-52.0) L 12/28/18 05:25 Plt Count 243 K/mm3 (142-424) 12/28/18 05:25 BUN 2 mg/dL (7-18) L D 12/28/18 05:25 Creatinine 0.65 mg/dL (0.70-1.30) L D 12/28/18 05:25 Estimated Creat Clear 97 mL/min (50-200) 12/28/18 05:25 - Prophylaxis VTE Prophylaxis Ordered?: Yes Types of VTE Prophylaxis: TEDS Knee High Location of Applied Device: Bilateral Lower Extremeties - VTE Diagnosis Confirmed Treatment or plan recommended: Continue Current Treatment
--- NOTE | 2018-12-28 09:35 | Electrocardiograph Report ---
APPROVED REPORT Exam: Resting ECG HR:118 bpm ECG Measurements Heart Rate 118 AXES QRSd 88 QRS 83 QT 348 T106 QTc 487 <Conclusion> Accelerated Junctional rhythm Abnormal ECG Electronically signed by : Santos Guzman, 12/28/2018 09:34:16
--- NOTE | 2018-12-28 09:37 | Consult Report ---
History of Present Illness Consult date: 12/28/18 Requesting physician: Patrick Sigala Chief complaint: SOB, passing out Additional Medical History:: 1. questionable HTN 2. questionable HLD 3. Tobacco user 4. Amphetamine user History of present illness: This is a 58-year-old white male who presented to the emergency department via EMS for seizures. The patient reports that yesterday he just blacked out and was told he had a seizure. When EMS arrived the patient did have a mono clonic seizure with urine incontinence and a postictal phase of confusion. The patient states that he had never had seizure activity before. The patient did test positive for amphetamines. When I asked the patient about this at first he told me he did not know what amphetamines were. As the patient had he used any Sudafed and he told me know. Then I asked whether or not the patient had ever tried methamphetamines and he told me, " yesterday I did 2 lines of meth at my cousin's house with 2 people staying there." The patient reports that this was the first time he had ever tried methamphetamines. He denies any other drug use. He states that he occasionally drinks alcohol. He states that his last alcoholic beverage was probably on Wednesday or Wednesday. The patient states that he is short of breath. He states that he has been short of breath for quite some time. It is worse with exertion and does improve with rest. He states that he has no associated symptoms with the shortness of breath. This can be pretty bad at times. The patient denies any history of coronary artery disease or myocardial infarction. He does have an elevated troponin consistent with a non-ST elevation myocardial infarction. The patient denies any chest pain or pressure currently. He states that sometimes he does have some pain in the center of his chest that is associated with racing of the heart. He states that this comes and goes. He is really unable to describe the pain to me or tell me how bad the pain is. He does seem to have some underlying confusion. I am not sure if this is baseline or if this is secondary to the seizure-like activity that he had yesterday. He reports that sometimes his blood pressure is high and sometimes he has high cholesterol. He denies any diabetes. He denies a family history of coronary artery disease or [place]. He states that his father of leukemia and he is unable to tell me what his mother from last year. He denies any fever, chills, nausea, vomiting, diarrhea, PND or orthopnea. He is a 1 pack/day smoker. [facility] History I have reviewed the patient's past medical history: Yes Medical History: Reports:: Congestive Heart Failure, Deep Vein Thrombosis, Hyperlipidemia, Hypertension Denies:: Cancer, Diabetes Mellitus Type 1, Diabetes Mellitus Type 2, MRSA, Seizures *Have you ever received a pneumonia vaccine?: No *Have you received a flu vaccine this season?: No Other Medical History: Reports: Hypothyroidism, Other Other Surgeries: Yes: Colonoscopy, Other Amputation: No Fractures: No - *Social History Smoking Status: Current every day smoker Tobacco Type: cigarettes # Packs/Day (cigarettes): 1 Alcohol Intake: never Alcohol Intake Frequency:: a few times a week Substance Use Type: amphetamines Last Used Substance: days (ago) *Occupational Status:: unemployed, disabled Housing: apartment Household Members: spouse *Travel in the last 8 weeks: None Family Hx:: Cancer, Tuberculosis Meds Home Medications Medication Instructions Recorded Confirmed Type Nicotine [Nicoderm 21mg/24hr 21 mg TD DAILYP PRN 30 Days #30 09/17/18 12/28/18 Rx patch] patch.td24 Aspirin [Aspirin 325mg Tab] 325 mg PO DAILY 12/21/18 12/28/18 History Atorvastatin Calcium [Lipitor 10mg 10 mg PO DAILY 12/21/18 12/28/18 History Tablet] Omeprazole [Omeprazole 20mg Tab] 20 mg PO DAILY #30 tab 12/21/18 12/28/18 Rx Promethazine HCl [Phenergan 25mg 25 mg PO Q6H PRN 3 Days #10 tab 12/21/18 12/28/18 Rx tab] Allergies Allergy/AdvReac Type Severity Reaction Status Date / Time tramadol [TRAMADOL] Allergy Unknown ITCHING Verified 12/23/17 09:23 adhesive tape AdvReac blisters Verified 12/23/17 09:23 Review of Systems - Review of Systems Review of systems:: pertinent systems reviewed and negative unless documented below - Constitutional Reports fatigue - *Cardiovascular Reports chest pain, Reports chest pain at rest, Reports chest pain with activity, Reports shortness of breath, Reports shortness of breath with activity - *Respiratory Reports shortness of breath, Reports shortness of breath with activity - *Neurologic Reports seizure-like activity Exam Vital signs and Labs for Last 24 Hours: Temp Pulse Resp BP Pulse Ox 98.2 F 92 H 18 103/67 L 98 12/28/18 07:28 12/28/18 07:28 12/28/18 07:28 12/28/18 07:28 12/28/18 07:28 Laboratory Results - last 24 hr 12/27/18 21:20: Urine Color Yellow, Urine Appearance Clear, Urine pH 6.5, Ur Specific [place] 1.015, Urine Protein Trace, Urine Glucose (UA) Negative, Urine Ketones Negative, Urine Blood 1+, Urine Nitrate Negative, Urine Bilirubin Negative, Urine Urobilinogen 0.2, Ur Leukocyte Esterase Negative, Urine WBC Occasional, Ur Squamous Epith Cells Occasional, Urine Bacteria Trace 12/27/18 21:20: WBC 7.3, RBC 3.65 L, Hgb 13.5 L, Hct 42.9, MCV 117.3 H, MCH 36.9 H, MCHC 31.4 L, RDW 14.9, Plt Count 313, MPV 7.9, Neut % (Auto) 66.1, Lymph % (Auto) 26.5, [place] % (Auto) 5.6, Eos % (Auto) 0.4, Baso % (Auto) 1.3, Neut # (Auto) 4.8, Lymph # (Auto) 1.9, [place] # (Auto) 0.4, Eos # (Auto) 0.0, Baso # (Auto) 0.1 12/27/18 21:20: Sodium 133 L, Potassium 3.0 L, Chloride 98, Carbon Dioxide 18 L, Anion Gap 20.0 H, BUN 4 L, Creatinine 1.06, Estimated Creat Clear 68, Estimated GFR 72, Est GFR ( Amer) 87, Glucose 172 H, Calcium 8.3 L, Total Bilirubin 1.2 H, AST 21, ALT 33, Alkaline Phosphatase 72, Troponin I 0.23 H, C- Reactive Protein < 0.2, Total Protein 7.2, Albumin 3.7, Globulin 3.5 H, Albumin/Globulin Ratio 1.1, Plasma/Serum Alcohol 0 12/27/18 21:20: Lactate 9.5 H 12/27/18 21:20: Urine Opiates Screen Negative, Urine Methadone Screen Negative, Ur Barbituates Screen Negative, Ur Phencyclidine Scrn Negative, Ur Amphetamines Screen Positive H, U Benzodiazepines Scrn Negative, Urine Cocaine Screen Negative, U Marijuana (THC) Screen Negative 12/27/18 21:20: ESR 4 12/28/18 01:35: Lactate 0.6 12/28/18 01:35: Troponin I 0.35 H 12/28/18 05:25: WBC 6.9, RBC 3.19 L, Hgb 11.7 L D, Hct 36.1 L, MCV 113.2 H, MCH 36.8 H, MCHC 32.5, RDW 15.2, Plt Count 243, MPV 7.6, Neut % (Auto) 72.9, Lymph % (Auto) 20.5, [place] % (Auto) 4.7, Eos % (Auto) 1.1, Baso % (Auto) 0.8, Neut # (Auto) 5.1, Lymph # (Auto) 1.4, [place] # (Auto) 0.3, Eos # (Auto) 0.1, Baso # (Auto) 0.1 12/28/18 05:25: Sodium 136, Potassium 3.7 D, Chloride 105, Carbon Dioxide 27 D , Anion Gap 7.7, BUN 2 L D, Creatinine 0.65 L D, Estimated Creat Clear 97, Estimated GFR 126, Est GFR ( Amer) 153 D, Glucose 83 D, Calcium 8.2 L 12/28/18 05:25: Magnesium 1.7, Troponin I 0.36 H I & O for Last 24 hours: Intake & Output 12/25/18 12/26/18 12/27/18 12/28/18 23:59 23:59 23:59 23:59 Intake Total 1000 / 1000 Output Total 1900 / 1900 Balance -900 / -900 Weight 140 lb 121 lb 8 oz Narrative: His EKG shows sinus rhythm with a rate of 118. His telemetry strip is sinus rhythm with a rate of 66. - Constitutional no acute distress, thin - *Routine HEENT Exam Head: Present: normocephalic, atraumatic Eye: Present: EOMI, PERRL ENT: Present: mucous membranes moist - *Routine Neck Exam Present: supple, full ROM, normal carotid upstroke. Absent: JVD, carotid bruit, lymphadenopathy - *Routine Respiratory Exam Present: CTA bilaterally - *Routine Cardiovascular Exam Present: RRR, Normal S1, Normal S2. Absent: murmur - *Routine Abdominal Exam Present: soft, normoactive bowel sounds. Absent: tenderness, distended - *Routine Extremities Exam Present: full ROM, pulses intact, normal capillary refill. Absent: cyanosis, clubbing, edema - *Routine Skin Exam Present: intact, warm. Absent: erythema, rash - *Routine Neurological Exam Present: alert, oriented X3, CN II-XII intact. Absent: sensory deficit, motor deficit - Routine Psychiatric Exam Present: normal affect Comments: somewhat confused, able to answer most questions - Detailed Eye Exam Eyelids: Left normal inspection Assessment and Plan (1) Non-ST elevation myocardial infarction (NSTEMI) Current visit: Yes Status: Acute Category: Medical Code(s): I21.4 - Non-ST elevation (NSTEMI) myocardial infarction (2) Hypertension Current visit: Yes Status: Suspected Category: Medical Code(s): I10 - Essential (primary) hypertension (3) Hyperlipidemia Current visit: Yes Status: Resolved Category: Medical Code(s): E78.5 - Hyperlipidemia, unspecified (4) Tobacco use Current visit: No Status: Chronic Category: Medical Code(s): Z72.0 - Tobacco use (5) New onset seizure Current visit: Yes Status: Acute Category: Medical Code(s): R56.9 - Unspecified convulsions (6) Amphetamine abuse Current visit: Yes Status: Acute Category: Medical Code(s): F15.10 - Other stimulant abuse, uncomplicated (7) Palpitations Current visit: Yes Status: Acute Category: Medical Code(s): R00.2 - Palpitations (8) Angina pectoris Current visit: Yes Status: Acute Category: Medical Code(s): I20.9 - Angina pectoris, unspecified - Assessment and plan all Dx Assessment and Plan for all problems:: Plan: 1. The patient was admitted to the hospital after seizure-like activity. This was witnessed by EMS and the patient had a mono clonic seizure with urine incontinence and a postictal phase of confusion. Will defer management of this to his primary care provider. 2. The patient did test positive for amphetamines. Upon further discussion with the patient, he did use methamphetamines yesterday. He states that this was the first time that he ever used the drug and states that he does no other drugs except for drinking a little alcohol on occasion. 3. The patient does have an elevated troponin consistent with a non-ST elevation myocardial infarction. He does report having chest pain intermittently. It is unclear whether or not he had any chest pain yesterday or not. He also has racing of the heart. He states that he has high blood pressure and high cholesterol sometimes and he is a tobacco user. Given the patient's elevated troponin and class III angina, we will proceed with left cardiac catheterization to evaluate for coronary artery disease. 4. The patient has been educated on the risks and benefits of proceeding with left cardiac catheterization. The patient verbalizes understanding and is agreeable in proceeding with the procedure. 5. The patient will remain n.p.o. in preparation for left cardiac catheterization. 6. The patient will get IV fluids and premedications prior to the procedure. 7. We will obtain an echocardiogram to evaluate his LV function. The patient is positive for methamphetamines and is likely a drug user. We do want to make sure he has no valvular heart disease. The patient also has a diagnosis of congestive heart failure in his chart. He denies having congestive heart failure when I asked him so we will get an echocardiogram to make sure his ejection fraction is stable. 8. His blood pressure is well controlled. 9. His LDL goal is less than 100. We will add on a lipid panel. 10. Further recommendations will be made pending the patient's response to treatment and the results of his left cardiac catheterization and echocardiogram later today. Thank you for the opportunity to help participate in the care of this patient.
[2018-12-28 10:13] LABS: Chol/HDL Ratio 1.8 (1-3.5)
--- NOTE | 2018-12-28 13:11 | History & Physical Report ---
*Admission Date: 12/27/18 *Chief complaint: seizure *History of present illness: this wm presented to the ed with new onset of sz -pt with possible drug use and had elevated troponin - pt was admitted for card eval and monitor for sz H History I have reviewed the patient's past medical history: Yes Medical History: Reports:: Congestive Heart Failure, Deep Vein Thrombosis, Hyperlipidemia, Hypertension Denies:: Cancer, Diabetes Mellitus Type 1, Diabetes Mellitus Type 2, MRSA, Seizures *Have you ever received a pneumonia vaccine?: No *Have you received a flu vaccine this season?: No Other Medical History: Reports: Hypothyroidism, Other Other Surgeries: Yes: Colonoscopy, Other Amputation: No Fractures: No - *Social History Smoking Status: Current every day smoker Tobacco Type: cigarettes # Packs/Day (cigarettes): 1 Alcohol Intake: never Alcohol Intake Frequency:: a few times a week Substance Use Type: amphetamines Last Used Substance: days (ago) *Occupational Status:: unemployed, disabled Housing: apartment Household Members: spouse *Travel in the last 8 weeks: None Family Hx:: Cancer, Tuberculosis Review of Systems - Review of Systems Review of systems:: pertinent systems reviewed and negative unless documented below - Constitutional Denies headache(s) - Eyes Denies change in vision - ENT Denies sore throat - *Cardiovascular Denies chest pain at rest, Denies shortness of breath - *Respiratory Denies cough - *Gastrointestinal Denies abdominal pain - *Genitourinary Denies blood in urine - *Musculoskeletal Denies joint pain - Integumentary/Breasts Denies rash - *Neurologic Reports seizure-like activity Meds Home Medications Medication Instructions Recorded Confirmed Type Nicotine [Nicoderm 21mg/24hr 21 mg TD DAILYP PRN 30 Days #30 09/17/18 12/28/18 Rx patch] patch.td24 Aspirin [Aspirin 325mg Tab] 325 mg PO DAILY 12/21/18 12/28/18 History Atorvastatin Calcium [Lipitor 10mg 10 mg PO DAILY 12/21/18 12/28/18 History Tablet] Omeprazole [Omeprazole 20mg Tab] 20 mg PO DAILY #30 tab 12/21/18 12/28/18 Rx Promethazine HCl [Phenergan 25mg 25 mg PO Q6H PRN 3 Days #10 tab 12/21/18 12/28/18 Rx tab] Allergies Allergy/AdvReac Type Severity Reaction Status Date / Time tramadol [TRAMADOL] Allergy Unknown ITCHING Verified 12/23/17 09:23 adhesive tape AdvReac blisters Verified 12/23/17 09:23 Exam Vital signs and Labs for Last 24 Hours: Temp Pulse Resp BP Pulse Ox 98.4 F 80 20 93/61 L 97 12/28/18 11:02 12/28/18 13:04 12/28/18 13:04 12/28/18 13:04 12/28/18 13:04 Laboratory Results - last 24 hr 12/27/18 21:20: Urine Color Yellow, Urine Appearance Clear, Urine pH 6.5, Ur Specific [place] 1.015, Urine Protein Trace, Urine Glucose (UA) Negative, Urine Ketones Negative, Urine Blood 1+, Urine Nitrate Negative, Urine Bilirubin Negative, Urine Urobilinogen 0.2, Ur Leukocyte Esterase Negative, Urine WBC Occasional, Ur Squamous Epith Cells Occasional, Urine Bacteria Trace 12/27/18 21:20: WBC 7.3, RBC 3.65 L, Hgb 13.5 L, Hct 42.9, MCV 117.3 H, MCH 36.9 H, MCHC 31.4 L, RDW 14.9, Plt Count 313, MPV 7.9, Neut % (Auto) 66.1, Lymph % (Auto) 26.5, [place] % (Auto) 5.6, Eos % (Auto) 0.4, Baso % (Auto) 1.3, Neut # (Auto) 4.8, Lymph # (Auto) 1.9, [place] # (Auto) 0.4, Eos # (Auto) 0.0, Baso # (Auto) 0.1 12/27/18 21:20: Sodium 133 L, Potassium 3.0 L, Chloride 98, Carbon Dioxide 18 L, Anion Gap 20.0 H, BUN 4 L, Creatinine 1.06, Estimated Creat Clear 68, Estimated GFR 72, Est GFR ( Amer) 87, Glucose 172 H, Calcium 8.3 L, Total Bilirubin 1.2 H, AST 21, ALT 33, Alkaline Phosphatase 72, Troponin I 0.23 H, C- Reactive Protein < 0.2, Total Protein 7.2, Albumin 3.7, Globulin 3.5 H, Albumin/Globulin Ratio 1.1, Plasma/Serum Alcohol 0 12/27/18 21:20: Lactate 9.5 H 12/27/18 21:20: Urine Opiates Screen Negative, Urine Methadone Screen Negative, Ur Barbituates Screen Negative, Ur Phencyclidine Scrn Negative, Ur Amphetamines Screen Positive H, U Benzodiazepines Scrn Negative, Urine Cocaine Screen Negative, U Marijuana (THC) Screen Negative 12/27/18 21:20: ESR 4 12/28/18 01:35: Lactate 0.6 12/28/18 01:35: Troponin I 0.35 H 12/28/18 05:25: WBC 6.9, RBC 3.19 L, Hgb 11.7 L D, Hct 36.1 L, MCV 113.2 H, MCH 36.8 H, MCHC 32.5, RDW 15.2, Plt Count 243, MPV 7.6, Neut % (Auto) 72.9, Lymph % (Auto) 20.5, [place] % (Auto) 4.7, Eos % (Auto) 1.1, Baso % (Auto) 0.8, Neut # (Auto) 5.1, Lymph # (Auto) 1.4, [place] # (Auto) 0.3, Eos # (Auto) 0.1, Baso # (Auto) 0.1 12/28/18 05:25: Sodium 136, Potassium 3.7 D, Chloride 105, Carbon Dioxide 27 D , Anion Gap 7.7, BUN 2 L D, Creatinine 0.65 L D, Estimated Creat Clear 97, Estimated GFR 126, Est GFR ( Amer) 153 D, Glucose 83 D, Calcium 8.2 L 12/28/18 05:25: Magnesium 1.7, Troponin I 0.36 H 12/28/18 05:25: Triglycerides 41, Cholesterol 160, LDL Cholesterol 63, VLDL Cholesterol 8, HDL Cholesterol 89 H, Cholesterol/HDL Ratio 1.8 12/28/18 09:25: Troponin I 0.25 H I & O for Last 24 hours: Intake & Output 12/26/18 12/27/18 12/28/18 12/29/18 11:59 11:59 11:59 11:59 Intake Total 1000 / 1000 0 / 0 Output Total 1900 / 1900 Balance -900 / -900 0 / 0 Weight 121 lb 8 oz 121 lb 7.983 oz - Constitutional no acute distress, thin - *Routine HEENT Exam Head: Present: normocephalic Eye: Present: EOMI, PERRL ENT: Present: mucous membranes dry - *Routine Neck Exam Present: supple. Absent: JVD - *Routine Respiratory Exam Present: CTA bilaterally - *Routine Cardiovascular Exam Present: RRR, murmur - *Routine Abdominal Exam Present: soft - *Routine Extremities Exam Present: full ROM - *Routine Skin Exam Present: intact - *Routine Neurological Exam Present: alert, CN II-XII intact, altered mental status - Routine Psychiatric Exam Present: unable to assess Assessment and Plan (1) Non-ST elevation myocardial infarction (NSTEMI) Current visit: Yes Status: Acute Category: Medical Code(s): I21.4 - Non-ST elevation (NSTEMI) myocardial infarction (2) Hypertension Current visit: Yes Status: Suspected Category: Medical Code(s): I10 - Essential (primary) hypertension (3) Hyperlipidemia Current visit: Yes Status: Resolved Category: Medical Code(s): E78.5 - Hyperlipidemia, unspecified (4) Tobacco use Current visit: No Status: Chronic Category: Medical Code(s): Z72.0 - Tobacco use (5) New onset seizure Current visit: Yes Status: Acute Category: Medical Code(s): R56.9 - Unspecified convulsions (6) Amphetamine abuse Current visit: Yes Status: Acute Category: Medical Code(s): F15.10 - Other stimulant abuse, uncomplicated (7) Palpitations Current visit: Yes Status: Acute Category: Medical Code(s): R00.2 - Pal pitations (8) Angina pectoris Current visit: Yes Status: Acute Category: Medical Code(s): I20.9 - Angina pectoris, unspecified
[2018-12-29 05:40] LABS: Basophils # 0.1 K/mm3 (0-0.2); Basophils % 0.9 % (0.1-2.0); Eosinophils # 0.1 K/mm3 (0.0-0.4); Eosinophils % 1.2 % (0.1-12.0); Hematocrit 34.4 % (42.0-52.0); Lymphocytes # 1.1 K/mm3 (0.7-4.5); Lymphocytes % 19.3 % (10-50); Mean Corpuscular HGB Conc 31.9 g/dL (31.8-35.4); Mean Corpuscular Volume 113.4 fl (80-94); Mean Platelet Volume 8.5 fl (7.4-10.4); Monocytes # 0.4 K/mm3 (0.1-1.0); Monocytes % 6.9 % (1.7-9.3); Neutrophils % 71.7 % (37.0-80.0); Platelet Count 216 K/mm3 (142-424); Red Blood Count 3.03 M/mm3 (4.60-6.20); Red Cell Distribution Width 15.3 % (11.5-17.5); White Blood Count 5.6 K/mm3 (4.8-10.8)
[2018-12-29 05:49] LABS: Anion Gap 8.6 mEq/L (5-15); Calcium 7.7 mg/dL (8.5-10.1)
--- NOTE | 2018-12-29 09:05 | Discharge Summary ---
General - General Admission date:: 12/28/18 Discharge date: 12/29/18 HPI HPI: this wm presented to the ed with new onset of sz -pt with possible drug use and had elevated troponin - pt was admitted for card eval and monitor for sz Hospital Course Hospital Course: heart cath:IMPRESSION Mild [id number] coronary disease Stunned anterior wall most likely secondary to coronary artery spasm secondary to amphetamine usage Reduced ejection fraction with regional wall motion abnormality Normal left ventricular end-diastolic pressure PLAN 1. Avoidance of illegal substances 2. Absolute tobacco cessation 3. Low-dose beta-blockers and long-acting nitrates 4. LDL less than 55 5. Aspirin Plavix for 1 year 6. Risk factor modification 7. Echocardiogram 8. Cardiac rehabilitation head ct and chest x ray no acute findings. Spoke with Sidney james this a.m. due to patient's low blood pressure were going to send him home on MeToprol 12.5 mg twice daily and aspirin 81 mg will give first dose while in the hospital. Patient will need to be seen in the office next week. And also follow-up with Linnea next week. Objective Vital signs: Temp Pulse Resp BP Pulse Ox 98.9 F 76 17 104/68 L 99 12/29/18 07:54 12/29/18 07:54 12/29/18 07:54 12/29/18 07:54 12/29/18 07:54 no acute distress, thin - *Routine HEENT Exam Head: Present: normocephalic Eye: Present: PERRL ENT: Present: mucous membranes moist - *Routine Neck Exam Present: supple, full ROM - *Routine Respiratory Exam Present: CTA bilaterally - *Routine Cardiovascular Exam Present: RRR - *Routine Abdominal Exam Present: soft, normoactive bowel sounds - *Routine Extremities Exam Present: full ROM - *Routine Skin Exam Present: intact, warm - *Routine Neurological Exam Present: alert, oriented X3 - Routine Psychiatric Exam Present: normal affect Results Labs on day of discharge: Labs from last 24 hours 12/29/18 12/29/18 12/28/18 05:30 05:30 09:25 WBC 5.6 RBC 3.03 L Hgb 11.0 L Hct 34.4 L MCV 113.4 H MCH 36.2 H MCHC 31.9 RDW 15.3 Plt Count 216 MPV 8.5 Neut % (Auto) 71.7 Lymph % (Auto) 19.3 [place] % (Auto) 6.9 Eos % (Auto) 1.2 Baso % (Auto) 0.9 Neut # (Auto) 4.0 Lymph # (Auto) 1.1 [place] # (Auto) 0.4 Eos # (Auto) 0.1 Baso # (Auto) 0.1 Sodium 139 Potassium 3.6 Chloride 108 H Carbon Dioxide 26 Anion Gap 8.6 BUN 6 L D Creatinine 0.60 L Estimated Creat Clear 104 Estimated GFR 138 Est GFR ( Amer) 167 Glucose 106 Calcium 7.7 L Troponin I 0.25 H Triglycerides Cholesterol LDL Cholesterol VLDL Cholesterol HDL Cholesterol Cholesterol/HDL Ratio 12/28/18 05:25 WBC RBC Hgb Hct MCV MCH MCHC RDW Plt Count MPV Neut % (Auto) Lymph % (Auto) [place] % (Auto) Eos % (Auto) Baso % (Auto) Neut # (Auto) Lymph # (Auto) [place] # (Auto) Eos # (Auto) Baso # (Auto) Sodium Potassium Chloride Carbon Dioxide Anion Gap BUN Creatinine Estimated Creat Clear Estimated GFR Est GFR ( Amer) Glucose Calcium Troponin I Triglycerides 41 Cholesterol 160 LDL Cholesterol 63 VLDL Cholesterol 8 HDL Cholesterol 89 H Cholesterol/HDL Ratio 1.8 - Additional Comments Rounded with Dr. Sigala all orders per Zakiya DS: Diagnosis - Discharge Diagnosis (1) Non-ST elevation myocardial infarction (NSTEMI) Status: Acute (2) Hypertension Status: Suspected (3) Hyperlipidemia Status: Resolved (4) Tobacco use Status: Chronic (5) New onset seizure Status: Acute (6) Amphetamine abuse Status: Acute (7) Palpitations Status: Acute (8) Angina pectoris Status: Acute (9) Low body mass index (BMI) Status: Chronic Discharge Plan - Patient Discharge Instructions ACTIVITY: Continue current activity DIET: continue same diet Patient Instructions: Cardiac Troponin, Seizure Disorder -- Adult, Substance Use Disorder, Echocardiogram, Prescription Drug Addiction, DI for Seizure Disorder -- Adult, DI for Drug Abuse and Drug Addiction, Amphetamine - Follow up Plan Follow up with: Kaiden Yarbrough MD [Staff Physician] - 01/09/19 9:30 am Patrick Sigala MD [Primary Care Provider] - 01/03/19 Disposition: Home, Self-Residential Medications: Home Medications Medication Instructions Recorded Confirmed Type Nicotine [Nicoderm 21mg/24hr 21 mg TD DAILYP PRN 30 Days #30 09/17/18 12/28/18 Rx patch] patch.td24 Aspirin [Aspirin 325mg Tab] 325 mg PO DAILY 12/21/18 12/28/18 History Atorvastatin Calcium [Lipitor 10mg 10 mg PO DAILY 12/21/18 12/28/18 History Tablet] Omeprazole [Omeprazole 20mg Tab] 20 mg PO DAILY #30 tab 12/21/18 12/28/18 Rx Promethazine HCl [Phenergan 25mg 25 mg PO Q6H PRN 3 Days #10 tab 12/21/18 12/28/18 Rx tab] Aspirin [Aspirin 81mg EC Tab] 81 mg PO DAILY 30 Days #30 12/29/18 Rx tablet. Metoprolol Tartrate [Lopressor 12.5 mg PO BID 30 Days #60 tab 12/29/18 Rx 25mg tablet] Prescriptions/Medication Reconciliation: New Aspirin [Aspirin 81mg EC Tab] 81 mg PO DAILY 30 Days #30 tablet. Metoprolol Tartrate [Lopressor 25mg tablet] 12.5 mg PO BID 30 Days #60 tab Continued Nicotine [Nicoderm 21mg/24hr patch] 21 mg TD DAILYP PRN 30 Days #30 patch.td24 PRN Reason: Nicotine Cravings Atorvastatin Calcium [Lipitor 10mg Tablet] 10 mg PO DAILY Omeprazole [Omeprazole 20mg Tab] 20 mg PO DAILY #30 tab Discontinued Aspirin [Aspirin 325mg Tab] 325 mg PO DAILY Promethazine HCl [Phenergan 25mg tab] 25 mg PO Q6H PRN 3 Days #10 tab PRN Reason: Nausea And Vomiting - Problem Reconciliation Problems Reviewed?: Yes
--- NOTE | 2018-12-29 09:41 | Progress Note ---
Subjective Date: 12/29/18 Time: 09:38 Principal diagnosis: NSTEMI, methamphetamine use Interval history: 58 yo WM in bed in NAD. Denies any chest pain. BP is borderline low. Telemetry reviewed, no significant arrhythmias. Exam Vital signs and Labs for Last 24 Hours: Temp Pulse Resp BP Pulse Ox 98.9 F 76 17 104/68 L 99 12/29/18 07:54 12/29/18 07:54 12/29/18 07:54 12/29/18 07:54 12/29/18 07:54 Laboratory Results - last 24 hr 12/28/18 05:25: Triglycerides 41, Cholesterol 160, LDL Cholesterol 63, VLDL Cholesterol 8, HDL Cholesterol 89 H, Cholesterol/HDL Ratio 1.8 12/28/18 09:25: Troponin I 0.25 H 12/29/18 05:30: WBC 5.6, RBC 3.03 L, Hgb 11.0 L, Hct 34.4 L, MCV 113.4 H, MCH 36.2 H, MCHC 31.9, RDW 15.3, Plt Count 216, MPV 8.5, Neut % (Auto) 71.7, Lymph % (Auto) 19.3, [place] % (Auto) 6.9, Eos % (Auto) 1.2, Baso % (Auto) 0.9, Neut # (Auto) 4.0, Lymph # (Auto) 1.1, [place] # (Auto) 0.4, Eos # (Auto) 0.1, Baso # (Auto) 0.1 12/29/18 05:30: Sodium 139, Potassium 3.6, Chloride 108 H, Carbon Dioxide 26, Anion Gap 8.6, BUN 6 L D, Creatinine 0.60 L, Estimated Creat Clear 104, Estimated GFR 138, Est GFR ( Amer) 167, Glucose 106, Calcium 7.7 L I & O for Last 24 hours: Intake & Output 12/26/18 12/27/18 12/28/18 12/29/18 11:59 11:59 11:59 11:59 Intake Total 1000 / 1000 360 / 360 Output Total 1900 / 1900 1950 / 1950 Balance -900 / -900 -1590 / -1590 Weight 121 lb 8 oz 120 lb 8 oz - *Routine HEENT Exam Head: Present: normocephalic Eye: Present: EOMI, PERRL ENT: Present: mucous membranes moist - *Routine Respiratory Exam Present: CTA bilaterally. Absent: accessory muscle use, rales, rhonchi, wheezes - *Routine Cardiovascular Exam Present: RRR. Absent: murmur, gallop, rubs - *Routine Neurological Exam Present: alert, oriented X3, moving all extremities Progress Note: A&P (1) Non-ST elevation myocardial infarction (NSTEMI) Status: Acute Current Visit: Yes (2) Hypertension Status: Suspected Current Visit: Yes (3) Hyperlipidemia Status: Resolved Current Visit: Yes (4) Tobacco use Status: Chronic Current Visit: No (5) New onset seizure Status: Acute Current Visit: Yes (6) Amphetamine abuse Status: Acute Current Visit: Yes (7) Palpitations Status: Acute Current Visit: Yes (8) Angina pectoris Status: Acute Current Visit: Yes (9) Low body mass index (BMI) Status: Chronic Current Visit: Yes (10) Cardiomyopathy Status: Acute Current Visit: Yes Assessment and Plan for All Diagnoses:: 1. Will try low dose metoprolol this AM and if he tolerates it, then ok for discharge home on metoprolol tartrate 12.5 mg BID and ASA 81 mg daily. 2. Follow up in our office in 1 wk.
== END 2018-12-29 12:00 | disposition home or self-care (01) ==
LOC: ER 21:14 → 2ND 21:14
PROVIDERS: ADMIT Emergency Medicine; ATTEND Emergency Medicine
CPT/HCPCS: 36415; 70450; 71010; 71045; 80048; 80053; 80061; 80305; 81001; 83605; 83735; 84484; 85025; 85651; 86140; 87040; 93005; 93306; 93458; 96365; 96367; 96375; 99152; 99285; C1725; C1769; G0378; J1644; J1953; Q9967

== ENCOUNTER → 2019-02-15 14:17 | Outpatient (CLI) | payer BC, SELFPAY ==
[2019-02-15 13:30] VITALS: PULSE 73; PULSE 75
--- NOTE | 2019-02-15 14:18 | CT_ITS ---
PROCEDURE: CT LUNG SCREENING CLINICAL INDICATION: smoker Forty-five pack-year smoking history, asymptomatic for lung cancer COMPARISON: No exams were available for comparison TECHNIQUE: The exam was performed on a GE Light Speed [address] scanner using 2.90 mGy CTDI. A low dose helical CT CHEST was performed on a multi-detector scanner. All CT scans at the facility use one or more dose reduction, viz: automated exposure control, ma/kV adjustment per patient size (including targeted exams where dose is matched to indication, i.e. head), or iterative reconstruction technique. The LDCT was performed in a facility that meets the criteria for the screening program. Data regarding this exam was submitted to ACR which is an approved registry. The order for this exam indicates that it came as a result of a lung cancer screening counseling shard decision-making visit that included all the elements required of such a visit including smoking cessation. The radiologist interpreting this exam meets the CMS criteria for the LDCT lung cancer screening program. The exam is reported using the Lung-RADS classification scale and reported to the ACR registry. NOTE: This study was performed for the specific purposes of lung cancer screening and is not an alternative to diagnostic chest CT. RADIATION DOSE: CTDI vol(CT dose Index-volume) = 2.90mG DLP (Dose Length Product) = 112.03 the the okay interval mGcm FINDINGS: Old granulomatous disease. No suspicious nodules. COPD with scattered areas of scarring.. Old left-sided rib fractures. OTHER FINDINGS: Coronary artery calcifications IMPRESSION: Lung rads category 2, benign. COPD with old granulomatous disease and coronary artery calcification. Recommend 12 month LDCT follow-up Dictated by: Lupillo Voss MD 02/19/2019 20:51 Electronically signed by Lupillo Voss MD in [place] 02/19/2019 20:51
== END ==
PROVIDERS: PCP Emergency Medicine; Visit Provider Physician Assistant
DX: Z87.891 Personal history of nicotine dependence (principal); Z12.2 Encounter for screening for malignant neoplasm of respiratory organs; R05 Cough
CPT/HCPCS: 94060; 94726; 94729

== ENCOUNTER → 2019-03-21 06:55 | Outpatient (CLI) | payer BC, SELFPAY ==
--- NOTE | 2019-03-21 06:55 | CA_ITS ---
APPROVED REPORT Mash Grinder: MOISÉS Laterality: Bilateral Indications: follow up ELLI Risk Factors Smoking dizziness, edema, SOA, weakness, CAD Doppler Spectral Velocity Analysis ECA (R) 84.10/19.30 cm/s ECA (L) 56.90/12.60 cm/s dICA (R) 114.60/40.50 cm/s dICA (L) 70.10/30.90 cm/s Richa (R) 89.30/35.30 cm/s Richa (L) 96.00/40.90 cm/s pICA (R) 94.40/30.80 cm/s pICA (L) 88.10/33.00 cm/s dCCA (R) 93.70/32.10 cm/s dCCA (L) 97.00/27.60 cm/s pCCA (R) 109.20/27.00 cm/s pCCA (L) 95.70/23.10 cm/s Vert (R) 47.50/16.70 cm/s Vert (L) 51.10/22.00 cm/s ICA/CCA 1.22 ICA/CCA 0.99 Findings Duplex evaluation demonstrates stenosis of the right proximal internal carotid artery in the range of 20-49% with PSV <140 cm/sec, EDV <100 cm/sec, and IC/CC Ratio <4.0.Duplex evaluation demonstrates stenosis of the left proximal internal carotid artery <20% with PSV <140 cm/sec, EDV <100 cm/sec, and IC/CC Ratio <4.0. Conclusion Duplex evaluation demonstrates stenosis of the right proximal internal carotid artery in the range of 20-49% with PSV <140 cm/sec, EDV <100 cm/sec, and IC/CC Ratio <4.0.Duplex evaluation demonstrates stenosis of the left proximal internal carotid artery <20% with PSV <140 cm/sec, EDV <100 cm/sec, and IC/CC Ratio <4.0. Electronically signed by : Jordan Giron, 03/23/2019 18:22:39
--- NOTE | 2019-03-21 06:55 | NM_ITS ---
APPROVED REPORT Exam: Nuclear Stress Test Indication: SOB, Palpitations, High cholesterol, Tobacco use Patient Location: Outpatient Stress Tech: Jadyn Grace NM Tech:Rosmery Haywood, ARRT, RT (R)(N) Ht: 5 ft 10 in Wt: 140 lbs HR: 52 bpm BP: 124/72 mmHg BSA: 1.79 m2 BMI: 20.0 History: SOB, Palpitations, High cholesterol, Tobacco use Procedure: Patient received a 0.4 mg of intravenous Lexiscan, resting heart rate 52 bpm, resting blood pressure 124/72 mmHg, with Lexiscan maximum heart rate achived was 81 bpm which is Less than 85 % of the maximum predicted heart rate and blood pressure was 103/62 mmHg. With Lexiscan, patient denied any complaint of chest pain. Electrocardiogram Resting electrocardiogram showed sinus rhythm, with Lexiscan there is less than 1.[address] segment depression noted from the baseline EKG. The EKG portion of the Lexiscan Myoview is nondiagnostic. Cardiac Stress and Resting SPECT Images: Cardiac Stress and Resting SPECT images were obtained using technetium 99m Myoview 32.5 mCi stress and 10.25 mCi at rest. Gated SPECT with analysis of segmental wall motion and calculation of the ejection fraction also done. Cardiac stress and resting SPECT images show uniform myocardial activity without segmental perfusion abnormality, computer derived ejection fraction 59% with no regional wall motion abnormality, right ventricle is normal size and contractility. Conclusion: 1. The EKG portion of the Lexiscan Myoview is nondiagnostic. 2. No scintigraphic evidence of reversible ischemia seen, computer derived ejection fraction is 59% with no regional wall motion abnormality, right ventricle is normal size and contractility. 3. Normal Lexiscan Myoview study. Electronically signed by : Alirio Daniel, 03/22/2019 06:37:14
--- NOTE | 2019-03-21 06:55 | CA_ITS ---
APPROVED REPORT Exam: Pharmacologic Technologist: Jadyn Grace Ht: 5 ft 10 in Wt: 140 lbs BSA: 1.79 m2 HR: 52 bpm BP: 124/72 mmHg Indications: Abnormal CT, ELLI Medical History Medications: Omeprazole,,,,, Levothyroxine,,,,, Aspirin,,,,, Metoprolol,,,,, Gabapentin,,,,, Atorvastatin,,,,, Stress Test Details Test: LEXISCAN HR Resting HR: 54 bpm Max Heart Rate (APMHR): 162 bpm Max HR Achieved: 89 bpm Target HR (85% APMHR): 137 bpm % of APMHR: 54 Recovery HR: 72 bpm BP Resting BP: 124.0/72.0 mmHg Max BP: 124.0/72.0 mmHg Recovery BP: 123.0/71.0 mmHg ECG Clinical Exercise duration: 04:00 min Highest Stage Achieved: Stress ECG Conclusion Resting ECG: Sinus Bradycardia Lexiscan portion completed. Patient complained of stomach cramping during peak exercise. Symptoms: Stomach cramping at peak infusion. Resolved in recovery. No chest pain. No shortness of breath. Arrhythmias/Ectopy: No ectopy noted. ST-T Changes: Less than 1.[address] depression. Conclusion: Images to follow. Electronically signed by : Alirio Daniel, 03/22/2019 06:35:23
--- NOTE | 2019-03-21 07:17 | HMH.ITSHM ---
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 []LEVOTHYROXINE METOPROLOL GABAPENTIN ATORVASTATIN ASA OMEPRAZOLE
== END ==
PROVIDERS: PCP Emergency Medicine; Visit Provider Urology
DX: I25.10 Atherosclerotic heart disease of native coronary artery without angina pectoris (principal); I42.9 Cardiomyopathy, unspecified; I65.29 Occlusion and stenosis of unspecified carotid artery; R00.2 Palpitations; R06.02 Shortness of breath; R60.0 Localized edema
CPT/HCPCS: 78452; 93017; 93880; A9502; J2785

== ENCOUNTER → 2019-04-10 12:54 | Outpatient (CLI) | payer BC, SELFPAY ==
[2019-04-10 15:35] LABS: Anion Gap 14.7 mEq/L (5-15); Blood Urea Nitrogen 7 mg/dL (7-18); Calcium 8.8 mg/dL (8.5-10.1); Carbon Dioxide 26 mmol/L (21.0-32.0); Chloride 107 mmol/L (98-107); Creatinine,Serum 1.33 mg/dL (0.70-1.30); Estimated Glomerular Filt Rate 55 ml/min (>60); GFR (African American) 67 ML/MIN (>60); Glucose 105 mg/dL (74-106); Potassium 3.7 mmoL/L (3.5-5.1); Sodium 144 mmol/L (137-145)
== END ==
PROVIDERS: Visit Provider Nurse Practitioner Family
DX: E78.5 Hyperlipidemia, unspecified (principal); I11.9 Hypertensive heart disease without heart failure; I25.10 Atherosclerotic heart disease of native coronary artery without angina pectoris; I42.9 Cardiomyopathy, unspecified; I65.29 Occlusion and stenosis of unspecified carotid artery; R60.0 Localized edema
CPT/HCPCS: 36415; 80048

== ENCOUNTER → 2019-04-24 17:05 | Outpatient (CLI) | payer BC, SELFPAY ==
[2019-04-24 18:12] LABS: Basophils # 0.1 K/mm3 (0-0.2); Basophils % 0.9 % (0.1-2.0); Eosinophils # 0.1 K/mm3 (0.0-0.4); Eosinophils % 1.2 % (0.1-12.0); Hematocrit 37.5 % (42.0-52.0); Hemoglobin 12.2 g/dL (14.1-18.0); Lymphocytes # 1.3 K/mm3 (0.7-4.5); Lymphocytes % 20.1 % (10-50); Mean Corpuscular HGB Conc 32.6 g/dL (31.8-35.4); Mean Corpuscular Volume 95.1 fl (80-94); Mean Platelet Volume 8.4 fl (7.4-10.4); Monocytes # 0.5 K/mm3 (0.1-1.0); Monocytes % 7.9 % (1.7-9.3); Neutrophils # 4.6 K/mm3 (1.8-7.8); Platelet Count 271 K/mm3 (142-424); Red Blood Count 3.94 M/mm3 (4.60-6.20); Red Cell Distribution Width 14.8 % (11.5-17.5); White Blood Count 6.6 K/mm3 (4.8-10.8)
[2019-04-24 18:42] LABS: Chloride 108 mmol/L (98-107); Potassium 4.1 mmoL/L (3.5-5.1); Sodium 136 mmol/L (136-145)
[2019-04-24 18:44] LABS: Blood Urea Nitrogen 14 mg/dl (9-20); Estimated Glomerular Filt Rate 99 ml/min (>60); GFR (African American) 120 ML/MIN (>60)
[2019-04-24 18:45] LABS: Alanine Aminotransferase 16 U/L (12-78); Albumin Level 4.3 g/dl (3.5-5.0); Albumin/Globulin Ratio 1.5 (1.1-1.8); Alkaline Phosphatase 49 U/L (38-126); Anion Gap 11.1 mEq/L (5-15); Aspartate Amino Transferase 22 U/L (17-59); Bilirubin,Total 0.7 mg/dl (0.2-1.3); Calcium 9.3 mg/dl (8.4-10.2); Carbon Dioxide 21 mmol/L (22.0-30.0); Chol/HDL Ratio 2.5 (1-3.5); Cholesterol 136 mg/dl (140-200); Globulin 2.9 g/dL (1.3-3.2); Glucose 121 mg/dl (74-100); HDL Cholesterol 55 mg/dl (40-60); Total Protein,Serum 7.2 g/dl (6.3-8.2); Triglycerides 305 mg/dl (30-150); VLDL Cholesterol 61 mg/dL (0-40)
[2019-04-24 18:58] LABS: Direct LDL Cholesterol 56.72 mg/dL (100-129)
[2019-04-24 19:04] LABS: T4 (Thyroxine) 5.1 ug/dl (5.53-11.0)
[2019-04-24 19:18] LABS: Thyroid Stimulating Hormone 1.93 uIU/mL (0.465-4.68)
[2019-04-27 06:39] LABS: Folate 8.3 ng/mL (>3.0); PSA, Free 0.17 ng/mL; Prostate Specific Ag 0.8 ng/mL (0.0-4.0); Vitamin B12 200 pg/mL (232-1245)
[2019-04-28 19:34] LABS: Ferritin 21 ng/ml (17.9-464)
[2019-04-28 19:38] LABS: UIBC 313
[2019-04-28 19:39] LABS: Iron 117; Iron Saturation 27
== END ==
PROVIDERS: Visit Provider Physician Assistant
DX: E03.9 Hypothyroidism, unspecified (principal); G62.9 Polyneuropathy, unspecified; E55.9 Vitamin D deficiency, unspecified; E53.8 Deficiency of other specified B group vitamins; K21.9 Gastro-esophageal reflux disease without esophagitis; I10 Essential (primary) hypertension; F17.210 Nicotine dependence, cigarettes, uncomplicated; D64.9 Anemia, unspecified
CPT/HCPCS: 80053; 80061; 82607; 82652; 82728; 82746; 83540; 83550; 84153; 84154; 84436; 84443; 85025

== ENCOUNTER → 2019-05-04 15:07 | Outpatient (CLI) | payer BC, SELFPAY ==
[2019-05-04 17:31] LABS: Anion Gap 15.1 mEq/L (5-15); Blood Urea Nitrogen 15 mg/dl (9-20); Calcium 9.7 mg/dl (8.4-10.2); Carbon Dioxide 20 mmol/L (22.0-30.0); Chloride 103 mmol/L (98-107); Estimated Glomerular Filt Rate 116 ml/min (>60); GFR (African American) 140 ML/MIN (>60); Glucose 102 mg/dl (74-100); Potassium 4.1 mmoL/L (3.5-5.1); Sodium 134 mmol/L (136-145)
== END ==
PROVIDERS: Visit Provider Nurse Practitioner Family
DX: I11.9 Hypertensive heart disease without heart failure (principal); E78.5 Hyperlipidemia, unspecified; I10 Essential (primary) hypertension; I20.9 Angina pectoris, unspecified; I42.9 Cardiomyopathy, unspecified; I65.29 Occlusion and stenosis of unspecified carotid artery; R60.0 Localized edema; F17.200 Nicotine dependence, unspecified, uncomplicated
CPT/HCPCS: 36415; 80048

== ENCOUNTER → 2019-09-20 10:48 | Outpatient (CLI) | payer BC, SELFPAY | PROVIDERS: PCP Emergency Medicine; Visit Provider Urology | DX: I25.10 Atherosclerotic heart disease of native coronary artery without angina pectoris (principal); I42.9 Cardiomyopathy, unspecified; I11.9 Hypertensive heart disease without heart failure; E78.5 Hyperlipidemia, unspecified; I65.29 Occlusion and stenosis of unspecified carotid artery | CPT/HCPCS: 93270 ==

== ENCOUNTER 2019-09-27 08:03 | Emergency (ER) | payer BC, SELFPAY ==
[2019-09-27 08:04] VITALS: BP 102/50; PULSE 66; RESP 17; TEMP 36.7; O2SAT 100; BMI 21.5
--- NOTE | 2019-09-27 08:13 | HMH.EDBACK ---
ED Disposition Clinical Impression: Dehydration, Polysubstance abuse Lumbago Qualifiers: Chronicity: acute Back pain laterality: bilateral Sciatica presence: without sciatica Qualified Code(s): M54.5 - Low back pain Disposition: Home, Self-Care Condition on Discharge: Good Instructions: DI for Low Back Pain, DI for Dehydration -- Adult Referrals: Patrick Sigala MD [Primary Care Provider] - 3 days - Critical Care Critical Care Time: No Attestation: On , the high probability of a clinically significant, sudden or life threatening deterioration of the following system(s) required my full and direct attention, intervention and personal management. The time I documented below is in addition to time spent performing reported procedures but includes the following listed in this critical care notation. Medical Decision Making - Medical Records Medical records reviewed: Yes: I reviewed the patient's medical records. - Best Inquiry Pt receiving controlled substance: Yes Best was queried for this patient: No Risks and benefits of using a controlled substance: were discussed with pt by me Vital Signs: 09/27/19 08:04 09/27/19 08:39 09/27/19 09:03 Temperature 98.1 F Temperature Source Oral Pulse Rate [Right] 66 74 73 Respiratory Rate 17 Blood Pressure [Right Arm] 102/50 L 94/55 L 115/72 Blood Pressure Mean [Right Arm] 67 68 86 Blood Pressure Source [Right Arm] Automatic Cuff Automatic Cuff Blood Pressure Position [Right Arm] Sitting Sitting 02 Sat by Pulse Oximetry 100 99 100 Oxygen Delivery Method Room Air - Lab Data Lab results reviewed: Yes: I reviewed the patient's lab results. Lab Results 09/27/19 09:05: Urine Color Yellow, Urine Appearance Clear, Urine pH 6.0, Ur Specific [place] 1.015, Urine Protein Trace, Urine Glucose (UA) Negative, Urine Ketones Negative, Urine Blood Negative, Urine Nitrate Negative, Urine Bilirubin Negative, Urine Urobilinogen 0.2, Ur Leukocyte Esterase Negative Orders (Tests/Meds): ED MEDICATIONS Generic Name Dose Route Start Last Admin Trade Name Freq PRN Reason Stop Dose Admin Sodium Chloride 1,000 mls @ 999 mls/hr 09/27/19 08:45 09/27/19 09:05 Sod Chlor 0.9% 1000ml Bag IV 09/27/19 09:45 999 mls/hr .Q1H1M STEFFEN Administration Discontinued Medications Generic Name Dose Route Start Last Admin Trade Name Rodriguez PRN Reason Stop Dose Admin Acetaminophen 1,000 mg 09/27/19 09:05 09/27/19 09:07 Tylenol 500mg Tablet PO 09/27/19 09:06 1,000 mg ONCE ONE Administration Diazepam 5 mg 09/27/19 08:16 09/27/19 08:20 Valium 10mg/2ml Syringe IV 09/27/19 08:17 5 mg ONCE ONE Administration Sodium Chloride 1,000 mls @ 999 mls/hr 09/27/19 08:15 09/27/19 08:11 Sod Chlor 0.9% 1000ml Bag IV 09/27/19 09:15 999 mls/hr .Q1H1M STEFFEN Administration ORDERS Category Date Time Status Urinalysis and Microscopic Stat Lab 09/27/19 09:05 Results Medical Decision Narrative: There is no signs of infection or hematuria that would suggest obstructive uropathy. Patient was significantly dehydrated after drinking alcohol last night, some this morning and taking cocaine. He is feeling better with 2 L of fluid. He has no pulsatile mass or history of AAA, no abdominal pain, unlikely ruptured or surgically emergent AAA. In addition, his back pain is much lower, not flank pain. No trauma that would prompt further imaging. No history of IV drug abuse or fever that would suggest infectious etiology such as epidural abscess or discitis. No history of cancer that would prompt work-up for bony lesion as a cause of his pain. History and exam inconsistent with cauda equina. Discharged home with advised to seek counseling concerning his polysubstance abuse and to drink plenty of fluids. Use ibuprofen/Tylenol as needed for pain control. Follow-up with PCP within 2 to 3 days for reevaluation. Back Pain HPI - General Chief Complaint: Back Pain/Inj
--- NOTE | 2019-09-27 08:22 | PC.NURSE ---
family at bedside
[2019-09-27 08:39] VITALS: BP 94/55; PULSE 74; O2SAT 99
[2019-09-27 09:03] VITALS: BP 115/72; PULSE 73; O2SAT 100
[2019-09-27 09:08] LABS: Microscopic, Urine URINE MICROSCOPIC (MICROSCOPIC)
[2019-09-27 09:10] LABS: Appearance,Urine CLEAR (Clear); Bilirubin,Urine Negative (Negative); Blood, Urine Negative (Negative); Color,Urine YELLOW (Yellow); Glucose,Urine (UA) Negative (Negative); Ketones,Urine Negative (Negative); Leukocyte Esterase,Urine Negative (Negative); Nitrate,Urine Negative (Negative); Protein,Urine TRACE (Negative); Specific Gravity, Urine 1.015 (1.005-1.030); Urobilinogen,Urine 0.2 EU/dl (0.2)
[2019-09-27 09:36] LABS: Squamous Epithelial Cell,Urine Occasional #/hpf (0-5)
[2019-09-27 09:38] VITALS: BP 115/72; PULSE 73; RESP 17; TEMP 36.7; O2SAT 100
== END 2019-09-27 09:40 | disposition home or self-care (01) ==
PROVIDERS: Emergency Provider Emergency Medicine; PCP Emergency Medicine
DX: E86.0 Dehydration (principal); F19.10 Other psychoactive substance abuse, uncomplicated; F10.10 Alcohol abuse, uncomplicated; I10 Essential (primary) hypertension; K21.9 Gastro-esophageal reflux disease without esophagitis; J44.9 Chronic obstructive pulmonary disease, unspecified; E03.9 Hypothyroidism, unspecified; F17.210 Nicotine dependence, cigarettes, uncomplicated; Z79.899 Other long term (current) drug therapy
CPT/HCPCS: 81001; 96365; 96367; 96375; 99283

== ENCOUNTER → 2019-12-19 17:51 | Outpatient (CLI) | payer BC, SELFPAY ==
[2019-12-19 18:07] LABS: Basophils # 0.1 K/mm3 (0-0.2); Basophils % 1.1 % (0.1-2.0); Eosinophils % 0.6 % (0.1-12.0); Hemoglobin 13.6 g/dL (14.1-18.0); Lymphocytes # 1.5 K/mm3 (0.7-4.5); Mean Corpuscular HGB Conc 31.6 g/dL (31.8-35.4); Mean Corpuscular Hemoglobin 33.1 pg (27.0-31.2); Mean Corpuscular Volume 104.6 fl (80-94); Mean Platelet Volume 8.1 fl (7.4-10.4); Monocytes # 0.5 K/mm3 (0.1-1.0); Monocytes % 7.5 % (1.7-9.3); Neutrophils # 4.3 K/mm3 (1.8-7.8); Neutrophils % 66.8 % (37.0-80.0); Platelet Count 303 K/mm3 (142-424); Red Blood Count 4.11 M/mm3 (4.60-6.20); Red Cell Distribution Width 15.1 % (11.5-17.5); White Blood Count 6.4 K/mm3 (4.8-10.8)
[2019-12-19 18:17] LABS: Alanine Aminotransferase 17 U/L (12-78); Albumin Level 4.1 g/dl (3.5-5.0); Albumin/Globulin Ratio 1.3 (1.1-1.8); Alkaline Phosphatase 67 U/L (38-126); Anion Gap 11.6 mEq/L (5-15); Aspartate Amino Transferase 30 U/L (17-59); Blood Urea Nitrogen 12 mg/dl (9-20); Calcium 9.1 mg/dl (8.4-10.2); Carbon Dioxide 26 mmol/L (22.0-30.0); Chloride 106 mmol/L (98-107); Chol/HDL Ratio 2.1 (1-3.5); Cholesterol 164 mg/dl (140-200); Estimated Glomerular Filt Rate 115 ml/min (>60); GFR (African American) 140 ML/MIN (>60); Globulin 3.2 g/dL (1.3-3.2); Glucose 88 mg/dl (74-100); HDL Cholesterol 80 mg/dl (40-60); Potassium 3.6 mmoL/L (3.5-5.1); Sodium 140 mmol/L (136-145); Total Protein,Serum 7.3 g/dl (6.3-8.2); Triglycerides 130 mg/dl (30-150); VLDL Cholesterol 26 mg/dL (0-40)
[2019-12-19 18:29] LABS: Direct LDL Cholesterol 67.67 mg/dL (100-129)
[2019-12-19 18:35] LABS: T4 (Thyroxine) 6.8 ug/dl (5.53-11.0)
[2019-12-19 18:49] LABS: Thyroid Stimulating Hormone 1.26 uIU/mL (0.465-4.68)
[2019-12-19 19:19] LABS: Vitamin B12 > 1000 pg/mL (239-931)
[2019-12-21 12:16] LABS: PSA, Free 0.36 ng/mL; Prostate Specific Ag 1.6 ng/mL (0.0-4.0)
== END ==
PROVIDERS: Visit Provider Physician Assistant
DX: M51.16 Intervertebral disc disorders with radiculopathy, lumbar region (principal); M50.00 Cervical disc disorder with myelopathy, unspecified cervical region; E53.8 Deficiency of other specified B group vitamins; F19.10 Other psychoactive substance abuse, uncomplicated
CPT/HCPCS: 80053; 80061; 82607; 84153; 84154; 84436; 84443; 85025

== ENCOUNTER 2020-06-01 20:00 | Emergency (ER) | payer MEDICARE, BC, SELFPAY ==
[2020-06-01 20:16] VITALS: BP 120/82; PULSE 125; RESP 18; TEMP 37; O2SAT 95; BMI 20.7
--- NOTE | 2020-06-01 20:23 | HMH.EDMCLR ---
ED Disposition Clinical Impression: Medical clearance for incarceration Disposition: Home, Self-Care Condition on Discharge: Good Instructions: DI for Alcohol Use Disorder Additional Instructions: see pcp for follow up Referrals: Patrick Sigala MD [Primary Care Provider] - - Critical Care Critical Care Time: No Attestation: On 06/01/20, the high probability of a clinically significant, sudden or life threatening deterioration of the following system(s) required my full and direct attention, intervention and personal management. The time I documented below is in addition to time spent performing reported procedures but includes the following listed in this critical care notation. Medical Decision Making - Medical Records Medical records reviewed: Yes: I reviewed the patient's medical records. - Best Inquiry Pt receiving controlled substance: No Vital Signs: 06/01/20 20:16 Temperature 98.6 F Temperature Source Oral Pulse Rate [Right] 125 H Respiratory Rate 18 Blood Pressure [Right Arm] 120/82 Blood Pressure Mean [Right Arm] 94 Blood Pressure Source [Right Arm] Automatic Cuff Blood Pressure Position [Right Arm] Sitting 02 Sat by Pulse Oximetry 95 Oxygen Delivery Method Room Air - Lab Data Lab results reviewed: Yes: I reviewed the patient's lab results. Medical Clearance HPI - General Chief complaint: Medical Clearance Stated complaint: mEDICAL cLEARANCE,DUI Time Seen by Provider: 06/01/20 20:23 Mode of Arrival: Ambulatory Source of Information: Patient, Medical Record Limitations: No Limitations Description of Symptoms (Recalled from ER Triage Doc. by RN): Pt here by [facility] for Medical Clearance, pt denies any medical problems. - History of Present Illness HPI Narrative: pt presents for medical clearance - pt w/o specific c/o complaint: medical clearance requested Onset (ago): hour(s) Reason for Medical Clearance: intoxication Place: street Alleged Intoxication: Yes Traumatic Symptoms: denies traumatic injury Associated Symptoms: denies other symptoms Treatments Prior to Arrival: none Home medications: Previous Rx's Medication Instructions Recorded aspirin 81 mg tablet,delayed 81 mg PO DAILY #90 tab 04/03/19 release atorvastatin 10 mg tablet 10 mg PO DAILY #90 tab 04/03/19 lisinopril 10 mg tablet 10 mg PO DAILY #90 tab 04/03/19 metoprolol tartrate 25 mg tablet 12.5 mg PO BID #180 tab 04/03/19 omeprazole 20 mg tablet,delayed 20 mg PO DAILY #90 tab 04/03/19 release fluticasone propionate 50 1 spray INTRANASAL QDAY 30 Days 04/24/19 mcg/actuation nasal #9.9 g spray,suspension furosemide 40 mg tablet 40 mg PO DAILY #30 tab 04/25/19 cholecalciferol (vitamin D3) 25 1,000 unit PO DAILY #90 cap 05/01/19 mcg (1,000 unit) capsule fluticasone furoate 100 1 inh INHALATION DAILY #28 each 06/30/19 mcg-vilanterol 25 mcg/dose inhalation powder spironolactone 25 mg tablet 25 mg PO DAILY #90 tab 08/24/19 levothyroxine 25 mcg tablet 25 mcg PO DAILY #90 tab 09/25/19 gabapentin 600 mg tablet 600 mg PO Q8H #90 tab 12/19/19 ergocalciferol (vitamin D2) 1,250 See Rx Instructions .ROUTE 01/17/20 mcg (50,000 unit) capsule .COMPLEX #12 cap Allergies/Adverse reactions: Allergies Allergy/AdvReac Type Severity Reaction Status Date / Time tramadol [TRAMADOL] Allergy Unknown ITCHING Verified 02/19/20 13:57 adhesive tape AdvReac blisters Verified 02/19/20 13:57 [facility] History - Hepatitis A Screen Drug use history?: No High risk sexual behaviors?: No History of sexually transmitted infection?: No Currently employed?: No Childcare worker?: No Do you have indoor plumbing?: Yes Do you have electricity?: Yes Attestation statement:: This patient has been screened for Hepatitis A risk factors. I have reviewed the patient's past medical history: Yes Medical History: Reports:: Congestive Heart Failure, Coronary Artery Disease, Deep Vein Thrombosis, Gastroesophageal Reflux
[2020-06-01 20:36] VITALS: BP 120/82; PULSE 125; RESP 18; TEMP 37; O2SAT 95
== END 2020-06-01 20:37 | disposition home or self-care (01) ==
PROVIDERS: Emergency Provider Emergency Medicine; PCP Emergency Medicine
DX: F10.10 Alcohol abuse, uncomplicated (principal); M54.16 Radiculopathy, lumbar region; E03.9 Hypothyroidism, unspecified; I10 Essential (primary) hypertension; I25.10 Atherosclerotic heart disease of native coronary artery without angina pectoris; E78.5 Hyperlipidemia, unspecified; K21.9 Gastro-esophageal reflux disease without esophagitis; I50.9 Heart failure, unspecified; F17.210 Nicotine dependence, cigarettes, uncomplicated; Z79.899 Other long term (current) drug therapy
CPT/HCPCS: 36415; 99282

== ENCOUNTER → 2020-08-20 13:40 | Outpatient (CLI) | payer MEDICARE, BC, SELFPAY ==
[2020-08-20 13:53] LABS: Basophils # 0.1 K/mm3 (0-0.2); Basophils % 1.5 % (0.1-2.0); Eosinophils # 0.1 K/mm3 (0.0-0.4); Eosinophils % 2.1 % (0.1-12.0); Hematocrit 38.1 % (42.0-52.0); Hemoglobin 12.8 g/dL (14.1-18.0); Lymphocytes # 1.6 K/mm3 (0.7-4.5); Lymphocytes % 28.6 % (10-50); Mean Corpuscular HGB Conc 33.4 g/dL (31.8-35.4); Mean Corpuscular Hemoglobin 35.8 pg (27.0-31.2); Mean Corpuscular Volume 107.1 fl (80-94); Mean Platelet Volume 8.5 fl (7.4-10.4); Monocytes # 0.6 K/mm3 (0.1-1.0); Monocytes % 10.7 % (1.7-9.3); Neutrophils # 3.2 K/mm3 (1.8-7.8); Neutrophils % 57.1 % (37.0-80.0); Platelet Count 195 K/mm3 (142-424); Red Blood Count 3.56 M/mm3 (4.60-6.20); Red Cell Distribution Width 16.1 % (11.5-17.5); White Blood Count 5.6 K/mm3 (4.8-10.8)
[2020-08-20 14:00] LABS: Alanine Aminotransferase 21 U/L (12-78); Albumin Level 4.1 g/dl (3.5-5.0); Albumin/Globulin Ratio 1.2 (1.1-1.8); Alkaline Phosphatase 63 U/L (38-126); Anion Gap 9.5 mEq/L (5-15); Aspartate Amino Transferase 37 U/L (17-59); Bilirubin,Total 0.7 mg/dl (0.2-1.3); Blood Urea Nitrogen 9 mg/dl (9-20); Carbon Dioxide 27 mmol/L (22.0-30.0); Chloride 103 mmol/L (98-107); Chol/HDL Ratio 1.9 (1-3.5); Cholesterol 184 mg/dl (140-200); Estimated Glomerular Filt Rate 138 ml/min (>60); GFR (African American) 167 ML/MIN (>60); Globulin 3.3 g/dL (1.3-3.2); Glucose 109 mg/dl (74-100); HDL Cholesterol 99 mg/dl (40-60); Potassium 4.5 mmoL/L (3.5-5.1); Sodium 135 mmol/L (136-145); Total Protein,Serum 7.4 g/dl (6.3-8.2); Triglycerides 96 mg/dl (30-150); VLDL Cholesterol 19 mg/dL (0-40)
[2020-08-20 14:12] LABS: Direct LDL Cholesterol 67.22 mg/dL (100-129)
[2020-08-20 14:17] LABS: 25-OH Vitamin D, Total 29.6 ng/mL (30-100); Free T4 (Free Thyroxine) 0.88 ng/dl (0.78-2.19)
[2020-08-20 14:31] LABS: Amphetamine/Metha Screen,Urine Negative ng/ml (<1000)
[2020-08-20 14:32] LABS: Barbiturates Screen,Urine Negative ng/ml (<200)
[2020-08-20 14:33] LABS: Benzodiazepines Screen,Urine Negative ng/ml (<200); Prostate Specific Ag Screen 1.7 ng/ml (0.0-4.0); Thyroid Stimulating Hormone 2.39 uIU/mL (0.465-4.68)
[2020-08-20 14:37] LABS: Methadone Screen,Urine Negative ng/ml (<300)
[2020-08-20 14:38] LABS: Cannabinoid Screen,Urine Negative ng/ml (<50); Cocaine Screen,Urine Negative ng/ml (<300)
[2020-08-20 14:40] LABS: Opiate Screen,Urine Negative ng/ml (<300); Phencyclidine Screen,Urine Negative ng/ml (<25)
[2020-08-20 15:06] LABS: Vitamin B12 922 pg/mL (239-931)
[2020-08-20 15:07] LABS: Folate 5.81 ng/mL
== END ==
PROVIDERS: Visit Provider Physician Assistant
DX: D64.9 Anemia, unspecified (principal); E03.9 Hypothyroidism, unspecified; E53.8 Deficiency of other specified B group vitamins; E55.9 Vitamin D deficiency, unspecified; E78.5 Hyperlipidemia, unspecified; I25.10 Atherosclerotic heart disease of native coronary artery without angina pectoris; M54.5 Low back pain; Z79.899 Other long term (current) drug therapy; Z12.5 Encounter for screening for malignant neoplasm of prostate; E86.0 Dehydration; R79.89 Other specified abnormal findings of blood chemistry; G62.9 Polyneuropathy, unspecified
CPT/HCPCS: 80053; 80061; 80305; 82306; 82607; 82746; 84439; 84443; 85025; G0103

== ENCOUNTER 2021-01-14 16:00 | Emergency (ER) | payer MEDICARE, BC, SELFPAY ==
[2021-01-14 16:21] VITALS: BP 134/93; PULSE 85; RESP 18; TEMP 36.7; O2SAT 97
--- NOTE | 2021-01-14 16:43 | HMH.EDUTC ---
[facility] [place] Clinical Impression: Cellulitis Qualifiers: Site of cellulitis: extremity Site of cellulitis of extremity: upper extremity Laterality: right Qualified Code(s): L03.113 - Cellulitis of right upper limb Disposition: Home, Self-Care Condition on Discharge: Good Instructions: Cellulitis Additional Instructions: Keep the wounds clean and dry. Follow up with your regular doctor. Take the antibiotics as directed and apply the topical antibiotics as directed. Watch the wound for signs of worsening infection, such as worsening redness, drainage, swelling, etc. GO TO THE ER FOR ANY WORSENING SYMPTOMS Prescriptions: Sulfamethoxazole/Trimethoprim [Bactrim DS tablet] 1 each PO BID 10 Days #20 tab Transmission Status: Received by [facility] Mupirocin [Bactroban 2% Ointment 22gm tube] 1 applicatio TP TID 7 Days #1 gm Transmission Status: Received by [facility] cephALEXin [cephALEXin 500mg capsule] 500 mg PO Q6H 10 Days #40 cap Transmission Status: Received by [facility] Referrals: Patrick Sigala MD [Primary Care Provider] - Time of Disposition: 16:54 Medical Decision Making - Medical Records Medical records reviewed: No: I reviewed the patient's medical records. - Best Inquiry Pt receiving controlled substance: No Vital Signs: 01/14/21 16:21 01/14/21 16:57 Temperature 98.1 F 98.1 F Temperature Source Oral Pulse Rate 85 Pulse Rate [Left] 85 Respiratory Rate 18 18 Blood Pressure 134/93 H Blood Pressure [Right Arm] 134/93 H Blood Pressure Mean [Right Arm] 106 02 Sat by Pulse Oximetry 97 [facility] [place] HPI - General Stated complaint: blister and swollen R arm Time Seen by Provider: 01/14/21 16:43 Mode of Arrival: Ambulatory Source of Information: Patient Limitations: Language Barrier Description of Symptoms (Recalled from Triage Doc. by RN): pt pinched the skin on his outer RFA between a door and the latch. pt now has a swollen, red and hardened area. HEENT Symptoms (Recalled from RN notes): No Resp Symptoms (Recalled from RN notes): No Skin Symptoms (Recalled from RN notes): No MS Symptoms (Recalled from RN notes): Yes (RFA pain) Functional Status (Recalled from RN notes): na - History of Present Illness Provider Complaint: He states that, 3 days ago, he fell into the latch on a door in his house. His right forearm hit the sharp part of the latch and it pinched him. He recieved a superficical scratch to the skin of his right forearm. He did not get cut, but since then, he has had redness and swelling in that area. He thinks that he is getting a skin infection in the affected area. - Related Data Previous Rx's Medication Instructions Recorded aspirin 81 mg tablet,delayed 81 mg PO DAILY #90 tab 08/20/20 release atorvastatin 10 mg tablet 10 mg PO DAILY #90 tab 08/20/20 cholecalciferol (vitamin D3) 25 1,000 unit PO DAILY #90 cap 08/20/20 mcg (1,000 unit) capsule fluticasone furoate 100 1 inh INHALATION DAILY #28 each 08/20/20 mcg-vilanterol 25 mcg/dose inhalation powder fluticasone propionate 50 1 spray INTRANASAL QDAY 30 Days 08/20/20 mcg/actuation nasal #9.9 g spray,suspension furosemide 40 mg tablet 40 mg PO DAILY #30 tab 08/20/20 gabapentin 600 mg tablet 600 mg PO Q8H #90 tab 08/20/20 levothyroxine 25 mcg tablet 25 mcg PO DAILY #90 tab 08/20/20 lisinopril 10 mg tablet 10 mg PO DAILY #90 tab 08/20/20 metoprolol tartrate 25 mg tablet 12.5 mg PO BID #180 tab 08/20/20 omeprazole 20 mg tablet,delayed 20 mg PO DAILY #90 tab 08/20/20 release spironolactone 25 mg tablet 25 mg PO DAILY #90 tab 08/20/20 ergocalciferol (vitamin D2) 1,250 See Rx Instructions .ROUTE 08/27/20 mcg (50,000 unit) capsule .COMPLEX #14 cap Mupirocin [Bactroban 2% Ointment 1 applicatio TP TID 7 Days #1 gm 01/14/21 22gm tube] Sulfamethoxazole/Trimethoprim 1 each PO BID 10 Days #20 tab 01/14/21 [Bactrim DS tablet] cephALEXin [cephALEXin 500mg 500 mg PO Q6H 10
[2021-01-14 16:57] VITALS: BP 134/93; PULSE 85; RESP 18; TEMP 36.7
== END 2021-01-14 17:04 | disposition home or self-care (01) ==
PROVIDERS: Emergency Provider Nurse Practitioner Family; PCP Emergency Medicine
DX: L03.113 Cellulitis of right upper limb (principal); I50.9 Heart failure, unspecified; I25.10 Atherosclerotic heart disease of native coronary artery without angina pectoris; K21.9 Gastro-esophageal reflux disease without esophagitis; I10 Essential (primary) hypertension; F17.210 Nicotine dependence, cigarettes, uncomplicated
CPT/HCPCS: G0463; 99202

== ENCOUNTER 2021-01-16 18:00 | Emergency (ER) | payer MEDICARE, BC, SELFPAY ==
[2021-01-16 17:45] VITALS: BP 144/111; PULSE 105; RESP 18; TEMP 36.6; O2SAT 93
--- NOTE | 2021-01-16 18:18 | XR_ITS ---
PROCEDURE INFORMATION: Exam: XR Chest Exam date and time: 01/16/2021 6:18 PM Age: 60 years old Clinical indication: Injury or trauma; Other: Overdose; Blunt trauma (contusions or hematomas) TECHNIQUE: Imaging protocol: XR of the chest. Views: 1 view. COMPARISON: CR XR CHEST AP 12/27/2018 9:55 PM FINDINGS: Lungs: Unremarkable. No consolidation. Pleural spaces: Unremarkable. No pleural effusion. No pneumothorax. Heart/Mediastinum: Unremarkable. No cardiomegaly. Bones/joints: Rib irregularities seen left and laterally are favored to be chronic, but recommend clinical correlation for potential nondisplaced acute fractures. IMPRESSION: Rib irregularities seen left and laterally are favored to be chronic, but recommend clinical correlation for potential nondisplaced acute fractures.
[2021-01-16 18:29] LABS: Basophils # 0.1 K/mm3 (0-0.2); Chloride 104 mmol/L (98-107); Eosinophils # 0.1 K/mm3 (0.0-0.4); Eosinophils % 0.8 % (0.1-12.0); Hematocrit 39.9 % (42.0-52.0); Hemoglobin 12.8 g/dL (14.1-18.0); Lymphocytes # 1.7 K/mm3 (0.7-4.5); Lymphocytes % 18.9 % (10-50); Mean Corpuscular HGB Conc 32.1 g/dL (31.8-35.4); Mean Corpuscular Hemoglobin 32.4 pg (27.0-31.2); Mean Corpuscular Volume 100.9 fl (80-94); Monocytes # 0.3 K/mm3 (0.1-1.0); Neutrophils % 76.4 % (37.0-80.0); Platelet Count 484 K/mm3 (142-424); Red Blood Count 3.96 M/mm3 (4.60-6.20); White Blood Count 9.2 K/mm3 (4.8-10.8)
[2021-01-16 18:30] LABS: Potassium 3.9 mmoL/L (3.5-5.1); Sodium 138 mmol/L (136-145)
[2021-01-16 18:32] LABS: Alanine Aminotransferase 12 U/L (12-78); Aspartate Amino Transferase 26 U/L (17-59); Blood Urea Nitrogen 4 mg/dl (9-20); Creatinine Clearance Estimated 71 mL/min (50-200); Estimated Glomerular Filt Rate 76 ml/min (>60); GFR (African American) 92 ML/MIN (>60)
[2021-01-16 18:33] LABS: Albumin Level 4.3 g/dl (3.5-5.0); Albumin/Globulin Ratio 1.3 (1.1-1.8); Alkaline Phosphatase 48 U/L (38-126); Anion Gap 18.9 mEq/L (5-15); Bilirubin,Total 0.2 mg/dl (0.2-1.3); Calcium 8.8 mg/dl (8.4-10.2); Carbon Dioxide 19 mmol/L (22.0-30.0); Ethyl Alcohol 33 mg/dl (0-10); Globulin 3.3 g/dL (1.3-3.2); Glucose 165 mg/dl (74-100); Total Protein,Serum 7.6 g/dl (6.3-8.2)
[2021-01-16 18:37] LABS: Acetone, Serum (Rapid) None Detected (None Detect)
[2021-01-16 18:39] LABS: Acetaminophen < 10 ug/ml (10-30)
--- NOTE | 2021-01-16 18:47 | HMH.EDOD ---
ED Disposition Clinical Impression: Accidental heroin overdose Qualifiers: Encounter type: initial encounter Qualified Code(s): T40.1X1A - Poisoning by heroin, accidental (unintentional), initial encounter Disposition: Home, Self-Care Condition on Discharge: Fair Instructions: DI for Drug Overdose in Adults Additional Instructions: You have been evaluated for accidental heroin overdose. Please avoid drugs and alcohol. You are at very high risk of fatal overdose in the next hours and days. Please follow-up with your primary care doctor. Use naloxone for another person if they overdose, instruct family members on how to use it for you. Return to the emergency department at once for any new or worsening symptoms. Prescriptions: Naloxone HCl [Narcan] 4 mg NS ONCE #1 each Transmission Status: Pending to [facility] Referrals: Patrick Sigala MD [Primary Care Provider] - Time of Disposition: 19:48 - Critical Care Critical Care Time: No Attestation: On 01/16/21, the high probability of a clinically significant, sudden or life threatening deterioration of the following system(s) required my full and direct attention, intervention and personal management. The time I documented below is in addition to time spent performing reported procedures but includes the following listed in this critical care notation. Medical Decision Making - Medical Records Medical records reviewed: Yes: I reviewed the patient's medical records. - Best Inquiry Pt receiving controlled substance: No Vital Signs: 01/16/21 17:45 Temperature 97.9 F Temperature Source Oral Pulse Rate [Right Radial] 105 H Respiratory Rate 18 Blood Pressure [Right Arm] 144/111 H Blood Pressure Mean [Right Arm] 122 Blood Pressure Source [Right Arm] Automatic Cuff Blood Pressure Position [Right Arm] Sitting 02 Sat by Pulse Oximetry 93 L Oxygen Delivery Method Room Air - Lab Data Lab Results 01/16/21 18:00: WBC 9.2, RBC 3.96 L, Hgb 12.8 L, Hct 39.9 L, MCV 100.9 H, MCH 32.4 H, MCHC 32.1, RDW 16.0, Plt Count 484 H, MPV 8.0, Neut % (Auto) 76.4, Lymph % (Auto) 18.9, [place] % (Auto) 3.0, Eos % (Auto) 0.8, Baso % (Auto) 1.0, Neut # (Auto) 7.0, Lymph # (Auto) 1.7, [place] # (Auto) 0.3, Eos # (Auto) 0.1, Baso # (Auto) 0.1 01/16/21 18:00: Sodium 138, Potassium 3.9, Chloride 104, Carbon Dioxide 19 L, Anion Gap 18.9 H, BUN 4 L, Creatinine 1.00, Estimated Creat Clear 71, Estimated GFR 76, Est GFR ( Amer) 92, Glucose 165 H, Calcium 8.8, Total Bilirubin 0.2, AST 26, ALT 12, Alkaline Phosphatase 48, Total Protein 7.6, Albumin 4.3, Globulin 3.3 H, Albumin/Globulin Ratio 1.3, Acetaminophen < 10 L, Acetone Level None detected 01/16/21 18:00: Plasma/Serum Alcohol 33 H Result diagrams: 01/16/21 18:00 01/16/21 18:00 Orders (Tests/Meds): ORDERS Category Date Time Status UDS [Drug Screen,Urine] Stat Lab 01/16/21 18:23 Ordered Medical Decision Narrative: In summary this is a 60-year-old male with history of opiate use disorder presenting to the emergency department after overdose. Patient clinically stable on arrival. Vital signs within normal limits. He appears chronically unwell, but not acutely in distress. Patient is conversational. Vital signs are stable. No depressed respiratory rate. Do not believe that additional naloxone is indicated at this time. Patient was observed in the emergency department for 2 hours. No new or concerning features. He remained awake and alert. Given crackers and a soda. 1 hour later he continued to be well. He has been watched for 4 hours since Narcan administration. Counseled on the opiate use disorder. He does not believe he is addicted or in danger for withdrawal. Discussed that he is at high risk for fatal overdose, especially in the next few hours and days. Given naloxone rescue kit. Given return precautions. Stable for discharge. Overdose HPI - General Chief Complaint: Overdose Stated Complaint: Overdo
[2021-01-16 20:57] VITALS: BP 147/84; PULSE 98; RESP 16; TEMP 36.6; O2SAT 98
== END 2021-01-16 20:59 | disposition home or self-care (01) ==
PROVIDERS: Emergency Provider Emergency Medicine; PCP Emergency Medicine
DX: T40.1X1A Poisoning by heroin, accidental (unintentional), initial encounter (principal); K21.9 Gastro-esophageal reflux disease without esophagitis; I10 Essential (primary) hypertension; E78.5 Hyperlipidemia, unspecified; I50.9 Heart failure, unspecified; F17.210 Nicotine dependence, cigarettes, uncomplicated; Z79.899 Other long term (current) drug therapy
CPT/HCPCS: 71045; 80053; 80329; 82009; 85025; 99282

== ENCOUNTER 2021-03-12 21:21 | Inpatient (IN) | payer MEDICARE, BC, SELFPAY ==
[2021-03-12 21:23] VITALS: BP 120/82; PULSE 103; RESP 25; TEMP 37.3; O2SAT 93; BMI 18.6
--- NOTE | 2021-03-12 21:35 | ECG_ITS ---
APPROVED REPORT Exam: Resting ECG HR:100 bpm ECG Measurements Heart Rate 100 AXES MN 138 P 75 QRSd 84 QRS 90 QT 362 T 75 QTc 466 Conclusion Sinus rhythm with premature atrial complexes Biatrial enlargement Rightward axis Abnormal ECG Electronically signed by : Santos Guzman MD 03/13/2021 13:43:49
--- NOTE | 2021-03-12 22:00 | XR_ITS ---
PROCEDURE INFORMATION: Exam: XR Chest Exam date and time: 03/12/2021 10:00 PM Age: 60 years old Clinical indication: Cough and shortness of breath; Additional info: SOB, cough, poss covid+ TECHNIQUE: Imaging protocol: XR of the chest. Views: 2 views. COMPARISON: CR XR CHEST PORTABLE 01/16/2021 6:33 PM FINDINGS: Lungs: Extensive interstitial opacities bilaterally concerning for moderate viral pneumonia. Pleural spaces: Unremarkable. No pleural effusion. No pneumothorax. Heart/Mediastinum: Unremarkable. No cardiomegaly. Bones/joints: Unremarkable. IMPRESSION: Moderate viral pneumonia.
[2021-03-12 22:10] VITALS: BP 120/82; PULSE 106; O2SAT 90
[2021-03-12 22:14] LABS: Influenza A, PCR Not Detected (NotDetected); Influenza B, PCR Not Detected (NotDetected)
--- NOTE | 2021-03-12 22:20 | PC.NURSE ---
BACK FROM XRAY
[2021-03-12 22:21] LABS: Alanine Aminotransferase 47 U/L (12-78); Albumin Level 4.3 g/dl (3.5-5.0); Alkaline Phosphatase 48 U/L (38-126); Anion Gap 18.7 mEq/L (5-15); Aspartate Amino Transferase 127 U/L (17-59); Bilirubin,Direct 0.6 mg/dl (0.0-0.4); Bilirubin,Indirect 0.5 mg/dL (0.0-0.9); Bilirubin,Total 1.1 mg/dl (0.2-1.3); Bilirubin,Unconjugated 0.5 mg/dL (0.0-1.1); Blood Urea Nitrogen 44 mg/dl (9-20); Calcium 9.1 mg/dl (8.4-10.2); Carbon Dioxide 24 mmol/L (22.0-30.0); Chloride 88 mmol/L (98-107); Creatinine Clearance Estimated 50 mL/min (50-200); Estimated Glomerular Filt Rate 56 ml/min (>60); GFR (African American) 68 ML/MIN (>60); Glucose 192 mg/dl (74-100); Potassium 4.7 mmoL/L (3.5-5.1); Sodium 126 mmol/L (136-145); Total Protein,Serum 8.9 g/dl (6.3-8.2)
[2021-03-12 22:26] LABS: C-Reactive Protein 165.6 mg/L (0-4)
[2021-03-12 22:28] LABS: Basophils # 0.1 K/mm3 (0-0.2); Basophils % 0.8 % (0.1-2.0); Hematocrit 44.6 % (42.0-52.0); Hemoglobin 14.5 g/dL (14.1-18.0); Lymphocytes # 0.8 K/mm3 (0.7-4.5); Lymphocytes % 6.3 % (10-50); Mean Corpuscular HGB Conc 32.4 g/dL (31.8-35.4); Mean Corpuscular Hemoglobin 29.7 pg (27.0-31.2); Mean Corpuscular Volume 91.4 fl (80-94); Mean Platelet Volume 9.3 fl (7.4-10.4); Monocytes # 0.5 K/mm3 (0.1-1.0); Neutrophils # 10.7 K/mm3 (1.8-7.8); Platelet Count 213 K/mm3 (142-424); Red Blood Count 4.87 M/mm3 (4.60-6.20); Red Cell Distribution Width 17.8 % (11.5-17.5)
[2021-03-12 22:30] VITALS: BP 122/80; PULSE 101; RESP 26; O2SAT 88
[2021-03-12 22:33] LABS: Ethyl Alcohol < 10 mg/dl (0-10); Magnesium 1.8 mg/dl (1.6-2.3)
[2021-03-12 22:34] LABS: MANUAL DIFFERENTIAL MANUAL DIFFERENTIAL (MANUAL DIFF)
[2021-03-12 22:40] LABS: Procalcitonin 1.11 ng/mL (0.0-2.0); T4 (Thyroxine) 8.4 ug/dl (5.53-11.0)
[2021-03-12 22:45] LABS: Lymphocytes % 9 % (10-50); Monocytes % 10 % (2-9); Neutrophils % 62 % (42-76); Platelet Estimate Normal; Total Cells Counted 100
[2021-03-12 22:47] LABS: Spherocytes 2+
[2021-03-12 22:54] LABS: Thyroid Stimulating Hormone 0.81 uIU/mL (0.465-4.68)
[2021-03-12 22:57] LABS: Coronavirus 19, PCR Detected (NotDetected); Erythrocyte Sedimentation Rate 19 mm/hr (0-20)
--- NOTE | 2021-03-12 22:59 | CT_ITS ---
PROCEDURE INFORMATION: Exam: CTA Chest With Contrast Exam date and time: 03/12/2021 10:59 PM Age: 60 years old Clinical indication: Shortness of breath; Additional info: SOA, covid+ TECHNIQUE: Imaging protocol: Computed tomographic angiography of the chest with contrast. 3D rendering (Not supervised by radiologist): MIP and/or 3D reconstructed images were created by the technologist. Radiation optimization: All CT scans at this facility use at least one of these dose optimization techniques: automated exposure control; mA and/or kV adjustment per patient size (includes targeted exams where dose is matched to clinical indication); or iterative reconstruction. Contrast material: ISOVUE; Contrast volume: 70 ml; Contrast route: INTRAVENOUS (IV); COMPARISON: CR XR CHEST 2V 03/12/2021 10:06 PM FINDINGS: Pulmonary arteries: Normal. No pulmonary emboli. Aorta: Unremarkable. No aortic aneurysm. No aortic dissection. Lungs: Scattered airspace disease in both lungs findings concerning for moderate pneumonia. Pleural spaces: Unremarkable. No pneumothorax. No pleural effusion. Heart: Unremarkable. No cardiomegaly. No pericardial effusion. Lymph nodes: Unremarkable. No enlarged lymph nodes. Bones/joints: Unremarkable. No acute fracture. Soft tissues: Unremarkable. IMPRESSION: 1. Moderate bilateral pneumonia. 2. No pulmonary embolism
[2021-03-12 23:00] VITALS: BP 117/88; PULSE 88; RESP 25; O2SAT 95
--- NOTE | 2021-03-12 23:26 | PC.NURSE ---
pt sat decreased to 88%, placed on 2lpm NC and o2 increasing. 95% @ this time
[2021-03-12 23:30] VITALS: BP 121/79; PULSE 85; RESP 25; O2SAT 96
[2021-03-12 23:30] LABS: NT Pro Brain Natriuretic Pep. 653 pg/mL (0-125)
--- NOTE | 2021-03-12 23:32 | HMH.EDSOB ---
ED Disposition Clinical Impression: Pneumonia due to COVID-19 virus, Tobacco dependence, NARINDER (acute kidney injury) Disposition: Admitted As Inpatient Condition on Discharge: Serious Referrals: Narda Mckinley PA [Primary Care Provider] - - Critical Care Critical Care Time: No Attestation: On 03/12/21, the high probability of a clinically significant, sudden or life threatening deterioration of the following system(s) required my full and direct attention, intervention and personal management. The time I documented below is in addition to time spent performing reported procedures but includes the following listed in this critical care notation. Medical Decision Making - Medical Records Medical records reviewed: Yes: I reviewed the patient's medical records. - Best Inquiry Pt receiving controlled substance: No Vital Signs: 03/12/21 21:23 03/12/21 22:10 03/12/21 22:30 Temperature 99.1 F Temperature Source Oral Pulse Rate 106 H 101 H Pulse Rate [Right] 103 H Respiratory Rate 25 H 26 H Blood Pressure 120/82 122/80 Blood Pressure [Right Arm] 120/82 Blood Pressure Mean [Right Arm] 94 Blood Pressure Source Automatic Cuff Blood Pressure Source [Right Arm] Automatic Cuff Blood Pressure Position Supine 02 Sat by Pulse Oximetry 93 L 90 L 88 L Oxygen Delivery Method Room Air Room Air Room Air - Lab Data Lab results reviewed: Yes: I reviewed the patient's lab results. Lab Results 03/12/21 21:50: ESR 19 03/12/21 21:50: C-Reactive Protein 165.6 H, Procalcitonin 1.11 03/12/21 21:50: SARS-CoV-2 (PCR) Detected A, Influenza A Untype (PCR) Not detected, Influenza Type B (PCR) Not detected 03/12/21 21:50: WBC 12.0 H, RBC 4.87, Hgb 14.5, Hct 44.6, MCV 91.4, MCH 29.7, MCHC 32.4, RDW 17.8 H, Plt Count 213, MPV 9.3, Neut % (Auto) 89.0 H, Lymph % (Auto) 6.3 L, [place] % (Auto) 4.0, Eos % (Auto) 0.0 L, Baso % (Auto) 0.8, Neut # (Auto) 10.7 H, Lymph # (Auto) 0.8, [place] # (Auto) 0.5, Eos # (Auto) 0.0, Baso # (Auto) 0.1, Total Counted 100, Neutrophils % (Manual) 62, Band Neutrophils % 19.0 H, Lymphocytes % (Manual) 9 L, Monocytes % (Manual) 10 H, Platelet Estimate Normal, Spherocytes 2+ 03/12/21 21:50: Sodium 126 L, Potassium 4.7, Chloride 88 L, Carbon Dioxide 24, Anion Gap 18.7 H, BUN 44 H, Creatinine 1.30 H, Estimated Creat Clear 50, Estimated GFR 56 L, Est GFR ( Amer) 68, Glucose 192 H, Calcium 9.1, Total Bilirubin 1.1, Direct Bilirubin 0.6 H, Conjugated Bilirubin 0.0, Indirect Bilirubin 0.5, Unconjugated Bilirubin 0.5, AST 127 H, ALT 47, Alkaline Phosphatase 48, Total Protein 8.9 H, Albumin 4.3 03/12/21 21:50: Lactate 2.0 03/12/21 21:50: Troponin I 0.02, TSH 0.81, Thyroxine (T4) 8.4 03/12/21 21:50: Plasma/Serum Alcohol < 10 03/12/21 21:50: Magnesium 1.8 03/12/21 21:50: NT-Pro-B Natriuret Pep 653 H Result diagrams: 03/12/21 21:50 03/12/21 21:50 Orders (Tests/Meds): ED MEDICATIONS Generic Name Dose Route Start Last Admin Trade Name Freq PRN Reason Stop Dose Admin Sodium Chloride 1,000 mls @ 999 mls/hr 03/12/21 22:00 03/12/21 22:20 Sod Chlor 0.9% 1000ml Bag IV 03/12/21 23:00 999 mls/hr .Q1H1M STEFFEN Administration Discontinued Medications Generic Name Dose Route Start Last Admin Trade Name Freq PRN Reason Stop Dose Admin Dexamethasone Sodium Phosphate 10 mg 03/12/21 22:00 03/12/21 22:20 Dexamethasone 4mg/Ml 5ml Mdv IV 03/12/21 22:01 10 mg ONCE ONE Administration Iopamidol 70 ml 03/12/21 23:56 03/12/21 23:57 Iopamidol-370 (76%);100ml Bottle IV 03/12/21 23:57 70 ml ONCE ONE Administration Ketorolac Tromethamine 30 mg 03/12/21 22:18 03/12/21 22:20 Ketorolac 30mg/Ml Vial IV 03/12/21 22:19 30 mg ONCE ONE Administration Ondansetron HCl 4 mg 03/12/21 22:00 03/12/21 22:20 Ondansetron 4mg/2ml Vial IV 03/12/21 22:01 4 mg ONCE ONE Administration Sodium Chloride 50 ml 03/12/21 23:56 03/12/21 23:57 0.9 % Sodium Chloride 50 Ml Vial IV
--- NOTE | 2021-03-12 23:36 | PC.NURSE ---
pt to CT scan
[2021-03-12 23:38] LABS: Troponin I 0.02 ng/ml (0.00-0.034)
[2021-03-13] VITALS (12 sets, daily range): BP systolic 94–119; BP diastolic 51–81; PULSE 50–83; RESP 16–26; TEMP 36.2–37.2; O2SAT 92–98; BMI 16.5; BMI 16.4
--- NOTE | 2021-03-13 00:22 | PC.NURSE ---
notified rooming house inspector for bed assignment.
[2021-03-13 01:24] LABS: Troponin I 0.02 ng/ml (0.00-0.034)
--- NOTE | 2021-03-13 01:58 | PC.NURSE ---
patient up to floor via wheelchair @ this time.
[2021-03-13 04:50] LABS: Basophils # 0.1 K/mm3 (0-0.2); Basophils % 0.7 % (0.1-2.0); Hematocrit 40.8 % (42.0-52.0); Hemoglobin 13.4 g/dL (14.1-18.0); Lymphocytes # 0.6 K/mm3 (0.7-4.5); Lymphocytes % 4.1 % (10-50); Mean Corpuscular HGB Conc 32.8 g/dL (31.8-35.4); Mean Corpuscular Hemoglobin 29.9 pg (27.0-31.2); Mean Corpuscular Volume 91.3 fl (80-94); Mean Platelet Volume 8.8 fl (7.4-10.4); Monocytes # 0.7 K/mm3 (0.1-1.0); Monocytes % 5.2 % (1.7-9.3); Neutrophils # 11.9 K/mm3 (1.8-7.8); Platelet Count 195 K/mm3 (142-424); Red Blood Count 4.47 M/mm3 (4.60-6.20); Red Cell Distribution Width 17.6 % (11.5-17.5); White Blood Count 13.2 K/mm3 (4.8-10.8)
[2021-03-13 05:01] LABS: Anion Gap 12.6 mEq/L (5-15); Blood Urea Nitrogen 45 mg/dl (9-20); Calcium 8.2 mg/dl (8.4-10.2); Carbon Dioxide 26 mmol/L (22.0-30.0); Chloride 93 mmol/L (98-107); Creatinine Clearance Estimated 41 mL/min (50-200); Estimated Glomerular Filt Rate 52 ml/min (>60); GFR (African American) 63 ML/MIN (>60); Glucose 171 mg/dl (74-100); Magnesium 2.1 mg/dl (1.6-2.3); Potassium 4.6 mmoL/L (3.5-5.1); Sodium 127 mmol/L (136-145)
[2021-03-13 05:11] LABS: Troponin I 0.01 ng/ml (0.00-0.034)
--- NOTE | 2021-03-13 05:48 | PC.NURSE ---
pt admitted last night for covid pna and rosa, pt has been sleeping since arrived to floor, VSS, pt on o2 at 2l pnc with sats at 96%, pt a&o
--- NOTE | 2021-03-13 07:37 | PC.NURSE ---
Patient has a history of alcohol and drug abuse with a summary diagnosis of new onset seizures-- patient placed in seizure precautions by RN as per written protocol
--- NOTE | 2021-03-13 08:32 | P.CONPHA_ITS ---
[facility] Pharmacy VTE Monitoring - Patient Demographics Admission date: 03/13/21 Report Date: 03/13/21 Time: 08:32 Allergies/Adverse Reactions: Patient Allergies tramadol [TRAMADOL] Allergy (Unknown, Verified 08/27/20 14:34) ITCHING adhesive tape Adverse Reaction (Verified 08/27/20 14:34) blisters Height: 1.78 m Weight: 52.163 kg Patient Problems: Current Active Problems (Last Updated 08/30/17 @ 12:29 by TG Sanchez) Pneumonia due to COVID-19 virus (Acute) NARINDER (acute kidney injury) (Acute) Tobacco dependence (Chronic) - VTE Risk Labs: VTE Related Lab Results Hgb 13.4 g/dL (14.1-18.0) L 03/13/21 04:24 Hct 40.8 % (42.0-52.0) L 03/13/21 04:24 Plt Count 195 K/mm3 (142-424) 03/13/21 04:24 BUN 45 mg/dl (9-20) H 03/13/21 04:24 Creatinine 1.40 mg/dl (0.66-1.25) H 03/13/21 04:24 Estimated Creat Clear 41 mL/min (50-200) 03/13/21 04:24 Was VTE Risk Assessment Performed: Yes VTE Score: 3 VTE Risk Level: Low Risk Clinical Trial Participant: No - Prophylaxis VTE Prophylaxis Ordered?: Yes Types of VTE Prophylaxis: TEDS Knee High Location of Applied Device: Refused
--- NOTE | 2021-03-13 09:15 | HMH.HP ---
*Admission Date: 03/13/21 *Chief complaint: Shortness of breath *History of present illness: 6-year-old male patient presenting to the [facility] emergency department with complaints of nausea, fevers/chills/body aches, increasing shortness of breath, weakness, and fatigue. He reports symptoms started gradually increasing after 4 days decided to come to the emergency department. He does report smoking 1 to 2 packs of cigarettes a day for greater than 30 years and drinking usually 4 tall boys a night but has not consumed any alcohol for the fourth previous days. He denies nausea/vomiting/diarrhea and has not had a productive cough. He is unvaccinated 03/12/21 CXR: FINDINGS: Lungs: Extensive interstitial opacities bilaterally concerning for moderate viral pneumonia. Pleural spaces: Unremarkable. No pleural effusion. No pneumothorax. Heart/Mediastinum: Unremarkable. No cardiomegaly. Bones/joints: Unremarkable. IMPRESSION: Moderate viral pneumonia. Electronically signed by Primo ePrry MD 03/12/[address]: FINDINGS: Pulmonary arteries: Normal. No pulmonary emboli. Aorta: Unremarkable. No aortic aneurysm. No aortic dissection. Lungs: Scattered airspace disease in both lungs findings concerning for moderate pneumonia. Pleural spaces: Unremarkable. No pneumothorax. No pleural effusion. Heart: Unremarkable. No cardiomegaly. No pericardial effusion. Lymph nodes: Unremarkable. No enlarged lymph nodes. Bones/joints: Unremarkable. No acute fracture. Soft tissues: Unremarkable. IMPRESSION: 1. Moderate bilateral pneumonia. 2. No pulmonary embolism Electronically signed by Primo Perry MD 60-year-old man lying in bed resting quietly denies any respiratory distress during the night, current oxygenation 94% on 2 L per nasal cannula. He denies any chest pain or shortness of breath at present. Pulmonary to see [facility] History I have reviewed the patient's past medical history: Yes Medical History: Reports:: Cardiomyopathy, Congestive Heart Failure, Coronary Artery Disease, Deep Vein Thrombosis, Gastroesophageal Reflux Disease(GERD), Hyperlipidemia, Hypertension, Myocardial Infarction, Palpitations Denies:: Cancer, Diabetes Mellitus Type 1, Diabetes Mellitus Type 2, Seizures Comment Only: MRSA (unknown) *Have you ever received a pneumonia vaccine?: No *Have you received a flu vaccine this season?: No Other Medical History: Reports: Anemia, Hypothyroidism, Thyroid Disease, Other Other Surgeries: Yes: Cholecystectomy, Colonoscopy, Other Amputation: No Fractures: No - *Social History Last grade of school completed: 11th or 12th Smoking Status: Current every day smoker Tobacco Type: cigarettes # Packs/Day (cigarettes): 1 #Yrs smoked (if former smoker): 40 Alcohol Intake: current Alcohol Intake Frequency:: a few times a week Substance Use Type: denies use, methamphetamine *Occupational Status:: retired, disabled Housing: apartment Household Members: none *Travel in the last 8 weeks: None Family Hx:: Cancer, Diabetes, Tuberculosis Review of Systems - Review of Systems Review of systems:: pertinent systems reviewed and negative unless documented below - Constitutional Reports body ache(s), Reports fatigue, Reports fever(s) - Eyes Denies blurry vision, Denies double vision - ENT Denies abnormal hearing, Denies facial pain - *Cardiovascular Reports shortness of breath, Reports shortness of breath with activity, Denies chest pain, Denies chest pain at rest, Denies chest pain with activity - *Respiratory Reports chest congestion, Reports cough, Reports shortness of breath, Reports shortness of breath with activity, Denies excessive phlegm production - *Gastrointestinal Reports abdominal pain, Denies change in bowel habits - *Musculoskeletal Denies abnormal walking, Denies back pain - Integumentary/Breasts Denies change in skin color, Denies non-healing lesions - *Neurologic Denie
--- NOTE | 2021-03-13 12:49 | HMH.PULMCON ---
*Admission Date: 03/13/21 *Reason for consult:: Acute hypoxic respiratory failure, COVID-19 pneumonia *History of present illness: Mr. Nelson is a 60-year-old male greater than [id number] smoking history current smoker, denies any prior respiratory problems, not using any inhalers at baseline presented to the hospital for worsening respiratory distress along with nausea vomiting and decreased p.o. intake for the last 4 to 5 days gradually getting worse needing oxygen supplementation to maintain his O2 saturations at normal level was tested positive for COVID-19 pneumonia and pulmonary was called for further management. [facility] History Medical History: Reports:: Cardiomyopathy, Congestive Heart Failure, Coronary Artery Disease, Deep Vein Thrombosis, Gastroesophageal Reflux Disease(GERD), Hyperlipidemia, Hypertension, Myocardial Infarction, Palpitations Denies:: Cancer, Diabetes Mellitus Type 1, Diabetes Mellitus Type 2, Seizures Comment Only: MRSA (unknown) *Have you ever received a pneumonia vaccine?: No *Have you received a flu vaccine this season?: No Other Medical History: Reports: Anemia, Hypothyroidism, Thyroid Disease, Other Other Surgeries: Yes: Cholecystectomy, Colonoscopy, Other Amputation: No Fractures: No - *Social History Last grade of school completed: 11th or 12th Smoking Status: Current every day smoker Tobacco Type: cigarettes # Packs/Day (cigarettes): 1 #Yrs smoked (if former smoker): 40 Alcohol Intake: current Alcohol Intake Frequency:: a few times a week Substance Use Type: denies use, methamphetamine *Occupational Status:: retired, disabled Housing: apartment Household Members: none *Travel in the last 8 weeks: None Family Hx:: Cancer, Diabetes, Tuberculosis ROS - Cons Reports anorexia, Reports body ache(s), Reports fatigue, Reports lack of energy, Reports malaise - Eyes Reports blind spots - ENT Denies bleeding gums - Card Reports shortness of breath, Reports shortness of breath with activity - Resp Respiratory: Reports chest congestion, Reports cough, Reports dyspnea on exertion, Denies pain with cough, Reports cough with sputum production - GI Gastrointestingal: Reports: abdominal pain, dyspepsia, nausea, vomiting - Psych Reports thoughts of hurting/killing yourself, Denies thoughts of hurting/killing others Meds Home Medications Medication Instructions Recorded Confirmed Type atorvastatin 10 mg tablet 10 mg PO DAILY #90 tab 08/20/20 03/12/21 Rx Aspirin [Low Dose Aspirin EC] 81 mg PO DAILY 03/12/21 03/12/21 History Cholecalciferol (Vitamin D3) 1,000 unit PO DAILY 03/12/21 03/12/21 History [Vitamin D3 1,000 Unit Cap] Ergocalciferol (Vitamin D2) See Rx Instructions .ROUTE .COMPLEX 03/12/21 03/12/21 History [Drisdol] Fluticasone Propionate 1 spray INTRANASAL QDAY 03/12/21 03/12/21 History Fluticasone/Vilanterol [Breo 1 inh INHALATION DAILY 03/12/21 03/12/21 History Ellipta] Furosemide [Furosemide 40MG tAB*] 40 mg PO DAILY 03/12/21 03/12/21 History Levothyroxine Sodium [Synthroid 25 mcg PO DAILY 03/12/21 03/12/21 History 25mcg (0.025mg) tablet] Metoprolol Tartrate [Lopressor 12.5 mg PO BID 03/12/21 03/12/21 History 25mg tablet] Naloxone HCl [Narcan] 4 mg NS ONCE 03/12/21 03/12/21 History Omeprazole 20 mg PO DAILY 03/12/21 03/12/21 History Spironolactone [Spironolactone 25 mg PO DAILY 03/12/21 03/12/21 History 25mg Tablet] lisinopriL [Lisinopril] 10 mg PO DAILY 03/12/21 03/12/21 History Allergies Allergy/AdvReac Type Severity Reaction Status Date / Time tramadol [TRAMADOL] Allergy Unknown ITCHING Verified 08/27/20 14:34 adhesive tape AdvReac blisters Verified 08/27/20 14:34 Exam - Constitutional Constitutional:: Present: no acute distress - HENMT Exam HENMT: Present: normocephalic, atraumatic - Eye Exam Eyes:: Present: normal appearance both eyes and related structures - Neck Exam Neck:: Present: normal visual inspection - Respiratory Exam
--- NOTE | 2021-03-13 13:08 | HMH.PHAINT ---
VERIFIED PT MEDS WITH DOCTORS OFFICE
[2021-03-13 22:23] LABS: Microscopic, Urine URINE MICROSCOPIC (MICROSCOPIC)
[2021-03-13 22:31] LABS: Appearance,Urine CLEAR (Clear); Bilirubin,Urine Negative (Negative); Blood, Urine TRACE-I (Negative); Color,Urine DK YELLOW (Yellow); Glucose,Urine (UA) Negative (Negative); Ketones,Urine Negative (Negative); Leukocyte Esterase,Urine Negative (Negative); Nitrate,Urine Negative (Negative); PH,Urine 5.5 (5.0-8.5); Protein,Urine 1+ (Negative); Specific Gravity, Urine >= 1.030 (1.005-1.030); Urobilinogen,Urine 0.2 EU/dl (0.2)
[2021-03-13 22:35] LABS: Amphetamine/Metha Screen,Urine Negative ng/ml (<1000); Barbiturates Screen,Urine Negative ng/ml (<200)
[2021-03-13 22:36] LABS: Benzodiazepines Screen,Urine Negative ng/ml (<200); Cannabinoid Screen,Urine Negative ng/ml (<50)
[2021-03-13 22:37] LABS: Cocaine Screen,Urine Negative ng/ml (<300)
[2021-03-13 22:38] LABS: Methadone Screen,Urine Negative ng/ml (<300); Opiate Screen,Urine Negative ng/ml (<300)
[2021-03-13 22:39] LABS: Phencyclidine Screen,Urine Negative ng/ml (<25)
[2021-03-13 22:44] LABS: Bacteria,Urine 3+ /lpf; WBC,Urine Occasional #/hpf (0-3)
[2021-03-14] VITALS (9 sets, daily range): BP systolic 109–123; BP diastolic 62–72; PULSE 53–71; RESP 16–19; TEMP 36.3–36.8; O2SAT 90–96; BMI 16.7
[2021-03-14 07:35] LABS: Basophils # 0.1 K/mm3 (0-0.2); Basophils % 0.6 % (0.1-2.0); Hematocrit 36.4 % (42.0-52.0); Hemoglobin 11.9 g/dL (14.1-18.0); Lymphocytes # 0.6 K/mm3 (0.7-4.5); Lymphocytes % 5.2 % (10-50); Mean Corpuscular HGB Conc 32.7 g/dL (31.8-35.4); Mean Corpuscular Hemoglobin 30.3 pg (27.0-31.2); Mean Corpuscular Volume 92.6 fl (80-94); Mean Platelet Volume 10.2 fl (7.4-10.4); Monocytes # 0.8 K/mm3 (0.1-1.0); Monocytes % 6.8 % (1.7-9.3); Neutrophils # 10.4 K/mm3 (1.8-7.8); Neutrophils % 87.4 % (37.0-80.0); Platelet Count 200 K/mm3 (142-424); Red Blood Count 3.93 M/mm3 (4.60-6.20); Red Cell Distribution Width 17.7 % (11.5-17.5); White Blood Count 11.9 K/mm3 (4.8-10.8)
[2021-03-14 07:37] LABS: MANUAL DIFFERENTIAL MANUAL DIFFERENTIAL (MANUAL DIFF)
[2021-03-14 07:49] LABS: Alanine Aminotransferase 45 U/L (12-78); Albumin Level 2.8 g/dl (3.5-5.0); Albumin/Globulin Ratio 0.9 (1.1-1.8); Alkaline Phosphatase 45 U/L (38-126); Anion Gap 9.4 mEq/L (5-15); Aspartate Amino Transferase 108 U/L (17-59); Bilirubin,Total 0.5 mg/dl (0.2-1.3); Blood Urea Nitrogen 30 mg/dl (9-20); Calcium 8.1 mg/dl (8.4-10.2); Carbon Dioxide 23 mmol/L (22.0-30.0); Chloride 105 mmol/L (98-107); Creatinine Clearance Estimated 98 mL/min (50-200); Estimated Glomerular Filt Rate 137 ml/min (>60); GFR (African American) 166 ML/MIN (>60); Glucose 142 mg/dl (74-100); Potassium 4.4 mmoL/L (3.5-5.1); Sodium 133 mmol/L (136-145); Total Protein,Serum 5.8 g/dl (6.3-8.2)
[2021-03-14 08:10] LABS: Eosinophils % 1 % (0-3); Lymphocytes % 6 % (10-50); Monocytes % 6 % (2-9); Neutrophils % 84 % (42-76); Platelet Estimate Normal; Total Cells Counted 100
[2021-03-14 08:11] LABS: Anisocytosis 1+
--- NOTE | 2021-03-14 09:16 | HMH.PULMPN ---
Internal Medicine - PN: Subj *Date: 03/14/21 *Time: 14:38 Interval history: No acute respiratory vents overnight. Patient denies any worsening respiratory symptoms. Admits stable symptoms. Exam - Constitutional Constitutional:: Present: no acute distress, comfortable - HENMT Exam HENMT: Present: normocephalic, atraumatic - Eye Exam Eyes:: Present: normal appearance both eyes and related structures - Neck Exam Neck:: Present: normal visual inspection - Respiratory Exam Respiratory:: Present: able to speak in complete sentences, no respiratory distress. Absent: rhonchi, wheezing - Cardiovascular Exam Cardiac:: Present: S1, S2 - GI Exam GI:: Present: soft - Skin Exam Skin: Present: warm, no rash - Neurological Exam Neurological: Present: alert, awake, normal cognition - Extremities Exam Extremities: Present: no cyanosis, no clubbing, no edema Assessment and Plan (1) Pneumonia due to COVID-19 virus Status: Acute Category: Medical Code(s): U07.1 - COVID-19; J12.82 - Pneumonia due to coronavirus disease 2018 (2) NARINDER (acute kidney injury) Status: Acute Category: Medical Code(s): N17.9 - Acute kidney failure, unspecified (3) Tobacco use Status: Chronic Category: Social Hx Code(s): Z72.0 - Tobacco use - Assessment and plan all Dx Assessment and Plan for all problems:: #Acute hypoxic respiratory failure: #COVID-19 pneumonia: 60-year-old male current smoker greater than [id number] smoking history. Not vaccinated. Presented worsening respiratory distress nausea and decreased p.o. intake. COVID-19 PCR positive. Flu panel negative. Mild leukocytosis. Acute kidney injury - Last known creatinine was from December 2020. CRP significantly elevated 134. CTA did not show any evidence of pulmonary embolism however showed bilateral airspace disease. Patient most recent low-dose CT was from January 2019 within normal limits. Interval update: No change in patient's respiratory status. This morning on 4 L saturating 96%, weaned back to 2 L. Leukocytosis stable. Renal function improved, creatinine now at 0.6. Plan: -Continue nasal cannula oxygen supplementation to maintain O2 saturation goal of 88 to 92%, wean to 2 L this morning. We will continue to wean as tolerated. -Ceftriaxone and azithromycin. -Remdesivir and dexamethasone. We will hold off on initiating barcitinib at this point of time. -Advair 250 Scheduled along with Combivent every 6 as needed -Chemical DVT prophylaxis and gastric ulcer prophylaxis As thank you for involving pulmonary in this patient care. We will continue to follow.
--- NOTE | 2021-03-14 10:03 | HMH.ACPN2 ---
Internal Medicine - PN: Subj *Date: 03/14/21 *Time: 09:15 Interval history: pt laying in bed states his throat is sore Exam Vital signs and Labs for Last 24 Hours: Temp Pulse Resp BP Pulse Ox 97.5 F L 55 L 18 122/70 93 L 03/14/21 07:35 03/14/21 07:35 03/14/21 07:35 03/14/21 07:35 03/14/21 07:35 Laboratory Results - last 24 hr 03/13/21 22:15: Urine Color Dk yellow, Urine Appearance Clear, Urine pH 5.5, Ur Specific [place] >= 1.030, Urine Protein 1+, Urine Glucose (UA) Negative, Urine Ketones Negative, Urine Blood Trace-i, Urine Nitrate Negative, Urine Bilirubin Negative, Urine Urobilinogen 0.2, Ur Leukocyte Esterase Negative, Urine WBC Occasional, Urine Bacteria 3+ 03/13/21 22:15: Urine Opiates Screen Negative, Urine Methadone Screen Negative, Ur Barbituates Screen Negative, Ur Phencyclidine Scrn Negative, Ur Amphetamines Screen Negative, U Benzodiazepines Scrn Negative, Urine Cocaine Screen Negative, U Marijuana (THC) Screen Negative 03/14/21 06:59: WBC 11.9 H, RBC 3.93 L, Hgb 11.9 L, Hct 36.4 L, MCV 92.6, MCH 30.3, MCHC 32.7, RDW 17.7 H, Plt Count 200, MPV 10.2, Neut % (Auto) 87.4 H, Lymph % (Auto) 5.2 L, [place] % (Auto) 6.8, Eos % (Auto) 0.0 L, Baso % (Auto) 0.6, Neut # (Auto) 10.4 H, Lymph # (Auto) 0.6 L, [place] # (Auto) 0.8, Eos # (Auto) 0.0, Baso # (Auto) 0.1, Total Counted 100, Neutrophils % (Manual) 84 H, Band Neutrophils % 3.0, Lymphocytes % (Manual) 6 L, Monocytes % (Manual) 6, Eosinophils % (Manual) 1, Platelet Estimate Normal, Anisocytosis 1+ 03/14/21 06:59: Sodium 133 L, Potassium 4.4, Chloride 105, Carbon Dioxide 23, Anion Gap 9.4, BUN 30 H D, Creatinine 0.60 L D, Estimated Creat Clear 98, Estimated GFR 137, Est GFR ( Amer) 166 D, Glucose 142 H, Calcium 8.1 L, Total Bilirubin 0.5, AST 108 H, ALT 45, Alkaline Phosphatase 45, Total Protein 5.8 L D, Albumin 2.8 L D, Globulin 3.0, Albumin/Globulin Ratio 0.9 L I & O for Last 24 hours: Intake & Output 03/11/21 03/12/21 03/13/21 03/14/21 11:59 11:59 11:59 11:59 Intake Total 1000 / 1000 1296 / 1296 Output Total 0 / 0 1050 / 1050 Balance 1000 / 999 246 / 246 Weight 115 lb 117 lb - Constitutional no acute distress, thin - *Routine HEENT Exam Head: Present: normocephalic Eye: Present: PERRL ENT: Present: mucous membranes moist - *Routine Neck Exam Present: supple. Absent: lymphadenopathy - *Routine Respiratory Exam Present: decreased breath sounds, rhonchi - *Routine Cardiovascular Exam Present: RRR - *Routine Abdominal Exam Present: soft, normoactive bowel sounds. Absent: tenderness - *Routine Extremities Exam Absent: cyanosis, clubbing, edema - *Routine Skin Exam Present: warm. Absent: rash - *Routine Neurological Exam Present: alert, oriented X3 Assessment and Plan (1) Pneumonia due to COVID-19 virus Status: Acute Category: Medical Code(s): U07.1 - COVID-19; J12.82 - Pneumonia due to coronavirus disease 2019 (2) NARINDER (acute kidney injury) Status: Acute Category: Medical Code(s): N17.9 - Acute kidney failure, unspecified (3) Tobacco use Status: Chronic Category: Social Hx Code(s): Z72.0 - Tobacco use (4) Severe protein-calorie malnutrition Status: Acute Category: Medical Code(s): E43 - Unspecified severe protein-calorie malnutrition - Assessment and plan all Dx Assessment and Plan for all problems:: rounded with dr herrera all orders per dr herrera encouraged to follow all orders on proning, ect pulm consult ensure to diet
[2021-03-15] VITALS (8 sets, daily range): BP systolic 113–123; BP diastolic 70–81; PULSE 52–65; RESP 18–20; TEMP 36.7–37.1; O2SAT 90–95; BMI 16.6
--- NOTE | 2021-03-15 06:00 | XR_ITS ---
PROCEDURE INFORMATION: Exam: XR Chest Exam date and time: 03/15/2021 6:00 AM Age: 60 years old Clinical indication: Shortness of breath; Additional info: Covid positive SOB TECHNIQUE: Imaging protocol: XR of the chest. Views: 1 view. COMPARISON: CR XR CHEST 2V 03/12/2021 10:06 PM FINDINGS: Lungs: Interval worsening of bilateral airspace opacities. Calcified granuloma in the mid right lung. Pleural spaces: Unremarkable. No pleural effusion. No pneumothorax. Heart/Mediastinum: Unremarkable. No cardiomegaly. Bones/joints: Unremarkable. IMPRESSION: Interval worsening of multilobar pneumonia.
[2021-03-15 07:32] LABS: Basophils # 0.1 K/mm3 (0-0.2); Basophils % 0.6 % (0.1-2.0); Hematocrit 36.5 % (42.0-52.0); Hemoglobin 11.2 g/dL (14.1-18.0); Lymphocytes # 0.7 K/mm3 (0.7-4.5); Lymphocytes % 5.5 % (10-50); Mean Corpuscular HGB Conc 30.5 g/dL (31.8-35.4); Mean Corpuscular Hemoglobin 29.5 pg (27.0-31.2); Mean Corpuscular Volume 96.8 fl (80-94); Mean Platelet Volume 9.5 fl (7.4-10.4); Monocytes # 0.8 K/mm3 (0.1-1.0); Monocytes % 5.9 % (1.7-9.3); Neutrophils # 11.8 K/mm3 (1.8-7.8); Neutrophils % 87.8 % (37.0-80.0); Platelet Count 245 K/mm3 (142-424); Red Blood Count 3.77 M/mm3 (4.60-6.20); White Blood Count 13.4 K/mm3 (4.8-10.8)
[2021-03-15 07:39] LABS: MANUAL DIFFERENTIAL MANUAL DIFFERENTIAL (MANUAL DIFF)
[2021-03-15 07:49] LABS: Chloride 108 mmol/L (98-107); Sodium 139 mmol/L (136-145)
[2021-03-15 07:50] LABS: Potassium 3.8 mmoL/L (3.5-5.1)
[2021-03-15 07:52] LABS: Alanine Aminotransferase 40 U/L (12-78); Albumin Level 2.9 g/dl (3.5-5.0); Albumin/Globulin Ratio 0.9 (1.1-1.8); Alkaline Phosphatase 49 U/L (38-126); Anion Gap 8.8 mEq/L (5-15); Aspartate Amino Transferase 64 U/L (17-59); Bilirubin,Total 0.5 mg/dl (0.2-1.3); Blood Urea Nitrogen 23 mg/dl (9-20); Calcium 8.1 mg/dl (8.4-10.2); Carbon Dioxide 26 mmol/L (22.0-30.0); Creatinine Clearance Estimated 97 mL/min (50-200); Estimated Glomerular Filt Rate 137 ml/min (>60); GFR (African American) 166 ML/MIN (>60); Globulin 3.2 g/dL (1.3-3.2); Glucose 126 mg/dl (74-100); Total Protein,Serum 6.1 g/dl (6.3-8.2)
[2021-03-15 08:18] LABS: Lymphocytes % 17 % (10-50); Monocytes % 5 % (2-9); Neutrophils % 78 % (42-76); Platelet Estimate Normal; RBC Morphology Normal; Total Cells Counted 100
--- NOTE | 2021-03-15 12:53 | HMH.ACPN2 ---
Internal Medicine - PN: Subj *Date: 03/15/21 *Time: 12:53 Interval history: Patient states that he feels about the same. He is not mobilizing or proning, been strongly encouraged by nursing staff and myself to do so. Labs are okay. He is 92% saturated on nasal cannula. Chest x-ray suggest increasing infiltrating process consistent with pneumonia. He is on dexamethasone and remdesivir, will add antibiotic coverage. Exam Vital signs and Labs for Last 24 Hours: Temp Pulse Resp BP Pulse Ox 98.8 F 64 18 114/72 92 L 03/15/21 11:43 03/15/21 11:43 03/15/21 11:43 03/15/21 11:43 03/15/21 11:43 Laboratory Results - last 24 hr 03/15/21 06:41: WBC 13.4 H, RBC 3.77 L, Hgb 11.2 L, Hct 36.5 L, MCV 96.8 H, MCH 29.5, MCHC 30.5 L, RDW 18.0 H, Plt Count 245, MPV 9.5, Neut % (Auto) 87.8 H, Lymph % (Auto) 5.5 L, [place] % (Auto) 5.9, Eos % (Auto) 0.0 L, Baso % (Auto) 0.6, Neut # (Auto) 11.8 H, Lymph # (Auto) 0.7, [place] # (Auto) 0.8, Eos # (Auto) 0.0, Baso # (Auto) 0.1, Total Counted 100, Neutrophils % (Manual) 78 H, Lymphocytes % (Manual) 17, Monocytes % (Manual) 5, Platelet Estimate Normal, RBC Morphology Normal 03/15/21 06:41: Sodium 139, Potassium 3.8, Chloride 108 H, Carbon Dioxide 26, Anion Gap 8.8, BUN 23 H, Creatinine 0.60 L, Estimated Creat Clear 97, Estimated GFR 137, Est GFR ( Amer) 166, Glucose 126 H, Calcium 8.1 L, Total Bilirubin 0.5, AST 64 H D, ALT 40, Alkaline Phosphatase 49, Total Protein 6.1 L, Albumin 2.9 L, Globulin 3.2, Albumin/Globulin Ratio 0.9 L I & O for Last 24 hours: Intake & Output 03/12/21 03/13/21 03/14/2103/15/22 23:59 23:59 23:59 23:59 Intake Total 1120 / 1120 1236 / 1356 240 / 240 Output Total 300 / 300 750 / 750 Balance 820 / 820 486 / 606 240 / 240 Weight 130 lb 114 lb 10.246 oz 117 lb 116 lb Microbiology Reports for the Last 24 Hours: Microbiology 03/13/21 22:15 Urine,Clean Catch Urine Culture - Preliminary NO GROWTH AFTER 24 HOURS - Constitutional no acute distress, thin, chronically ill appearing - *Routine HEENT Exam Head: Present: normocephalic Eye: Present: EOMI, PERRL ENT: Present: mucous membranes moist - *Routine Neck Exam Present: supple. Absent: lymphadenopathy - *Routine Respiratory Exam Present: rhonchi, diminished air movement. Absent: accessory muscle use - *Routine Cardiovascular Exam Present: RRR - *Routine Abdominal Exam Present: soft, normoactive bowel sounds. Absent: tenderness - *Routine Extremities Exam Absent: cyanosis, clubbing, edema - *Routine Skin Exam Present: warm. Absent: rash - *Routine Neurological Exam Present: alert, oriented X3, vision grossly intact, hearing grossly intact. Absent: altered mental status Assessment and Plan (1) Pneumonia due to COVID-19 virus Status: Acute Category: Medical Code(s): U07.1 - COVID-19; J12.82 - Pneumonia due to coronavirus disease 2019 (2) NARINDER (acute kidney injury) Status: Acute Category: Medical Code(s): N17.9 - Acute kidney failure, unspecified (3) Tobacco use Status: Chronic Category: Social Hx Code(s): Z72.0 - Tobacco use - Assessment and plan all Dx Assessment and Plan for all problems:: Will add azithromycin and cefepime to his regimen. Follow sequential chest x-rays. Strongly encourage mobility, walk around the room, get up in the chair, and use the incentive spirometer. Nursing staff is continuing to encourage same.
[2021-03-16] VITALS (7 sets, daily range): BP systolic 133–143; BP diastolic 74–82; PULSE 59–71; RESP 17–22; TEMP 36.5–37.1; O2SAT 1–98; BMI 16.6
--- NOTE | 2021-03-16 06:00 | XR_ITS ---
PROCEDURE INFORMATION: Exam: XR Chest Exam date and time: 03/16/2021 6:00 AM Age: 60 years old Clinical indication: Cough and shortness of breath; Additional info: Pneumonia TECHNIQUE: Imaging protocol: XR of the chest. Views: 1 view. COMPARISON: CR XR CHEST PORTABLE 03/15/2021 6:19 AM FINDINGS: Lungs: Interval worsening of patchy bilateral airspace opacities. Pleural spaces: Unremarkable. No pleural effusion. No pneumothorax. Heart/Mediastinum: Unremarkable. No cardiomegaly. Bones/joints: Remote left-sided rib fractures. IMPRESSION: Interval worsening of multilobar pneumonia.
[2021-03-16 06:34] LABS: Basophils # 0.1 K/mm3 (0-0.2); Basophils % 0.4 % (0.1-2.0); Hematocrit 32.8 % (42.0-52.0); Hemoglobin 10.3 g/dL (14.1-18.0); Lymphocytes # 0.9 K/mm3 (0.7-4.5); Lymphocytes % 7.3 % (10-50); Mean Corpuscular HGB Conc 31.6 g/dL (31.8-35.4); Mean Corpuscular Hemoglobin 29.8 pg (27.0-31.2); Mean Corpuscular Volume 94.3 fl (80-94); Mean Platelet Volume 9.2 fl (7.4-10.4); Monocytes # 0.6 K/mm3 (0.1-1.0); Monocytes % 4.6 % (1.7-9.3); Neutrophils # 10.6 K/mm3 (1.8-7.8); Neutrophils % 87.6 % (37.0-80.0); Platelet Count 277 K/mm3 (142-424); Red Blood Count 3.47 M/mm3 (4.60-6.20); Red Cell Distribution Width 18.1 % (11.5-17.5)
[2021-03-16 06:42] LABS: MANUAL DIFFERENTIAL MANUAL DIFFERENTIAL (MANUAL DIFF)
[2021-03-16 07:06] LABS: Anisocytosis 2+; Hypochromasia 2+; Lymphocytes % 8 % (10-50); Neutrophils % 85 % (42-76); Platelet Estimate Normal; Poikilocytosis 2+; Total Cells Counted 100
[2021-03-16 07:13] LABS: Alanine Aminotransferase 30 U/L (12-78); Albumin Level 2.8 g/dl (3.5-5.0); Albumin/Globulin Ratio 0.9 (1.1-1.8); Alkaline Phosphatase 46 U/L (38-126); Anion Gap 8.1 mEq/L (5-15); Aspartate Amino Transferase 35 U/L (17-59); Bilirubin,Total 0.8 mg/dl (0.2-1.3); Blood Urea Nitrogen 13 mg/dl (9-20); Calcium 7.9 mg/dl (8.4-10.2); Carbon Dioxide 26 mmol/L (22.0-30.0); Chloride 105 mmol/L (98-107); Creatinine Clearance Estimated 97 mL/min (50-200); Estimated Glomerular Filt Rate 137 ml/min (>60); GFR (African American) 166 ML/MIN (>60); Globulin 3.1 g/dL (1.3-3.2); Glucose 106 mg/dl (74-100); Potassium 3.1 mmoL/L (3.5-5.1); Sodium 136 mmol/L (136-145); Total Protein,Serum 5.9 g/dl (6.3-8.2)
--- NOTE | 2021-03-16 13:39 | HMH.ACPN2 ---
Internal Medicine - PN: Subj *Date: 03/16/21 *Time: 13:39 Interval history: Patient is up in the chair, alert and lucid. 92% on nasal cannula at 1 L/min, he is low point was 90. Potassium is low, will replace p.o. Urine culture negative chest film shows reinflation with scattered patchy infiltration. He is on azithromycin and cefepime dexamethasone and remdesivir. Exam Vital signs and Labs for Last 24 Hours: Temp Pulse Resp BP Pulse Ox 98.3 F 69 18 135/74 92 L 03/16/21 11:12 03/16/21 11:12 03/16/21 11:12 03/16/21 11:12 03/16/21 11:12 Laboratory Results - last 24 hr 03/16/21 05:47: WBC 12.0 H, RBC 3.47 L, Hgb 10.3 L, Hct 32.8 L, MCV 94.3 H, MCH 29.8, MCHC 31.6 L, RDW 18.1 H, Plt Count 277, MPV 9.2, Neut % (Auto) 87.6 H, Lymph % (Auto) 7.3 L, [place] % (Auto) 4.6, Eos % (Auto) 0.0 L, Baso % (Auto) 0.4, Neut # (Auto) 10.6 H, Lymph # (Auto) 0.9, [place] # (Auto) 0.6, Eos # (Auto) 0.0, Baso # (Auto) 0.1, Total Counted 100, Neutrophils % (Manual) 85 H, Band Neutrophils % 7.0, Lymphocytes % (Manual) 8 L, Platelet Estimate Normal, Hypochromasia 2+, Poikilocytosis 2+, Anisocytosis 2+ 03/16/21 05:47: Sodium 136, Potassium 3.1 L, Chloride 105, Carbon Dioxide 26, Anion Gap 8.1, BUN 13 D, Creatinine 0.60 L, Estimated Creat Clear 97, Estimated GFR 137, Est GFR ( Amer) 166, Glucose 106 H, Calcium 7.9 L, Total Bilirubin 0.8, AST 35 D, ALT 30, Alkaline Phosphatase 46, Total Protein 5.9 L, Albumin 2.8 L, Globulin 3.1, Albumin/Globulin Ratio 0.9 L I & O for Last 24 hours: Intake & Output 03/13/21 03/14/21 03/15/21 03/16/21 23:59 23:59 23:59 23:59 Intake Total 1120 / 1120 1236 / 1356 610 / 610 1380 / 1380 Output Total 300 / 300 750 / 750 500 / 675 475 / 475 Balance 820 / 820 486 / 606 110 / -65 905 / 905 Weight 114 lb 10.246 oz 117 lb 116 lb 115 lb 15.41 oz Microbiology Reports for the Last 24 Hours: Microbiology 03/13/21 22:15 Urine,Clean Catch Urine Culture - Final NO GROWTH AFTER 48 HOURS - Constitutional no acute distress, thin, chronically ill appearing, cooperative - *Routine HEENT Exam Head: Present: normocephalic Eye: Present: EOMI, PERRL ENT: Present: mucous membranes moist - *Routine Neck Exam Present: supple. Absent: lymphadenopathy - *Routine Respiratory Exam Present: CTA bilaterally, rhonchi, crackles. Absent: accessory muscle use, respiratory distress, stridor - *Routine Cardiovascular Exam Present: RRR - *Routine Abdominal Exam Present: soft, normoactive bowel sounds. Absent: tenderness - *Routine Extremities Exam Absent: cyanosis, clubbing, edema - *Routine Skin Exam Present: warm. Absent: rash - *Routine Neurological Exam Present: alert, oriented X3, vision grossly intact, hearing grossly intact. Absent: altered mental status Assessment and Plan (1) Pneumonia due to COVID-19 virus Status: Acute Category: Medical Code(s): U07.1 - COVID-19; J12.82 - Pneumonia due to coronavirus disease 2019 (2) NARINDER (acute kidney injury) Status: Acute Category: Medical Code(s): N17.9 - Acute kidney failure, unspecified (3) Tobacco use Status: Chronic Category: Social Hx Code(s): Z72.0 - Tobacco use - Assessment and plan all Dx Assessment and Plan for all problems:: Patient encouraged to continue elicitation. We will continue his current regimen, following with the pulmonary service. We will get PT relation. Protein intake is being supplemented.
--- NOTE | 2021-03-16 18:44 | PC.NURSE ---
pt is up in the chair. hqas been abulating aroud the room. complains of weakness bilaterally. ate dinner tonight and tolerated well.
[2021-03-17] VITALS (7 sets, daily range): BP systolic 99–145; BP diastolic 59–92; PULSE 51–75; RESP 16–19; TEMP 36.4–36.9; O2SAT 92–98; BMI 17.2
[2021-03-17 06:53] LABS: Basophils # 0.1 K/mm3 (0-0.2); Basophils % 1.1 % (0.1-2.0); Eosinophils % 0.1 % (0.1-12.0); Hematocrit 33.2 % (42.0-52.0); Hemoglobin 10.5 g/dL (14.1-18.0); Lymphocytes # 1.1 K/mm3 (0.7-4.5); Lymphocytes % 10.3 % (10-50); Mean Corpuscular HGB Conc 31.5 g/dL (31.8-35.4); Mean Corpuscular Hemoglobin 29.7 pg (27.0-31.2); Mean Corpuscular Volume 94.1 fl (80-94); Mean Platelet Volume 9.8 fl (7.4-10.4); Monocytes # 0.7 K/mm3 (0.1-1.0); Monocytes % 6.6 % (1.7-9.3); Neutrophils # 8.9 K/mm3 (1.8-7.8); Platelet Count 312 K/mm3 (142-424); Red Blood Count 3.53 M/mm3 (4.60-6.20); Red Cell Distribution Width 18.1 % (11.5-17.5); White Blood Count 10.8 K/mm3 (4.8-10.8)
[2021-03-17 07:05] LABS: Alanine Aminotransferase 25 U/L (12-78); Albumin Level 2.7 g/dl (3.5-5.0); Albumin/Globulin Ratio 0.9 (1.1-1.8); Alkaline Phosphatase 37 U/L (38-126); Anion Gap 8.5 mEq/L (5-15); Aspartate Amino Transferase 32 U/L (17-59); Bilirubin,Total 0.8 mg/dl (0.2-1.3); Blood Urea Nitrogen 9 mg/dl (9-20); Calcium 7.6 mg/dl (8.4-10.2); Carbon Dioxide 25 mmol/L (22.0-30.0); Chloride 103 mmol/L (98-107); Creatinine Clearance Estimated 121 mL/min (50-200); Estimated Glomerular Filt Rate 170 ml/min (>60); GFR (African American) 205 ML/MIN (>60); Globulin 3.1 g/dL (1.3-3.2); Glucose 122 mg/dl (74-100); Potassium 3.5 mmoL/L (3.5-5.1); Sodium 133 mmol/L (136-145); Total Protein,Serum 5.8 g/dl (6.3-8.2)
--- NOTE | 2021-03-17 09:30 | P.PN_ITS ---
Internal Medicine - PN: Subj *Date: 03/17/21 *Time: 08:45 Interval history: pt sitting up in chair on ra 89% Exam Vital signs and Labs for Last 24 Hours: Temp Pulse Resp BP Pulse Ox 98.2 F 71 16 142/71 H 95 03/17/21 04:00 03/17/21 04:00 03/17/21 04:00 03/17/21 04:00 03/17/21 06:00 Laboratory Results - last 24 hr 03/17/21 06:45: WBC 10.8, RBC 3.53 L, Hgb 10.5 L, Hct 33.2 L, MCV 94.1 H, MCH 29.7, MCHC 31.5 L, RDW 18.1 H, Plt Count 312, MPV 9.8, Neut % (Auto) 82.0 H, Lymph % (Auto) 10.3, [place] % (Auto) 6.6, Eos % (Auto) 0.1, Baso % (Auto) 1.1, Neut # (Auto) 8.9 H, Lymph # (Auto) 1.1, [place] # (Auto) 0.7, Eos # (Auto) 0.0, Baso # (Auto) 0.1 03/17/21 06:45: Sodium 133 L, Potassium 3.5, Chloride 103, Carbon Dioxide 25, Anion Gap 8.5, BUN 9 D, Creatinine 0.50 L, Estimated Creat Clear 121, Estimated GFR 170, Est GFR ( Amer) 205 D, Glucose 122 H, Calcium 7.6 L, Total Bilirubin 0.8, AST 32, ALT 25, Alkaline Phosphatase 37 L, Total Protein 5.8 L, Albumin 2.7 L, Globulin 3.1, Albumin/Globulin Ratio 0.9 L I & O for Last 24 hours: Intake & Output 03/14/21 03/15/21 03/16/21 03/17/21 11:59 11:59 11:59 11:59 Intake Total 1296 / 1296 300 / 300 1630 / 1630 605 / 605 Output Total 1050 / 1050 0 / 0 975 / 975 2275 / 2275 Balance 246 / 246 300 / 300 655 / 655 -1670 / -1670 Weight 117 lb 116 lb 115 lb 15.41 oz 120 lb - Constitutional no acute distress, thin - *Routine HEENT Exam Head: Present: normocephalic Eye: Present: PERRL ENT: Present: mucous membranes moist - *Routine Neck Exam Present: supple. Absent: lymphadenopathy - *Routine Respiratory Exam Present: rhonchi - *Routine Cardiovascular Exam Present: RRR - *Routine Abdominal Exam Present: soft, normoactive bowel sounds. Absent: tenderness - *Routine Extremities Exam Absent: cyanosis, clubbing, edema - *Routine Skin Exam Present: warm. Absent: rash - *Routine Neurological Exam Present: alert, oriented X3 Assessment and Plan (1) Pneumonia due to COVID-19 virus Status: Acute Category: Medical Code(s): U07.1 - COVID-19; J12.82 - Pneumonia due to coronavirus disease 2019 (2) NARINDER (acute kidney injury) Status: Acute Category: Medical Code(s): N17.9 - Acute kidney failure, unspecified (3) Tobacco use Status: Chronic Category: Social Hx Code(s): Z72.0 - Tobacco use - Assessment and plan all Dx Assessment and Plan for all problems:: rounded with dr herrera all orders per dr herrera pt/ot poss dc in am
--- NOTE | 2021-03-17 09:34 | HMH.PULMPN ---
Internal Medicine - PN: Subj *Date: 03/17/21 *Time: 13:20 Interval history: No acute respiratory events over the weekend. Patient respiratory status significantly improved. Admits improvement in symptoms. Exam - Constitutional Constitutional:: Present: no acute distress, comfortable - HENMT Exam HENMT: Present: normocephalic, atraumatic - Eye Exam Eyes:: Present: normal appearance both eyes and related structures - Neck Exam Neck:: Present: normal visual inspection - Respiratory Exam Respiratory:: Present: able to speak in complete sentences, no respiratory distress, rales. Absent: decreased breath sounds, wheezing - Cardiovascular Exam Cardiac:: Present: S1, S2 - GI Exam GI:: Present: soft - Skin Exam Skin: Present: warm, no rash - Neurological Exam Neurological: Present: alert, awake, normal cognition - Extremities Exam Extremities: Present: no cyanosis, no clubbing, no edema Assessment and Plan (1) Pneumonia due to COVID-19 virus Status: Acute Category: Medical Code(s): U07.1 - COVID-19; J12.82 - Pneumonia due to coronavirus disease 2018 (2) NARINDER (acute kidney injury) Status: Acute Category: Medical Code(s): N17.9 - Acute kidney failure, unspecified (3) Tobacco use Status: Chronic Category: Social Hx Code(s): Z72.0 - Tobacco use - Assessment and plan all Dx Assessment and Plan for all problems:: #Acute hypoxic respiratory failure: #COVID-19 pneumonia: 60-year-old male current smoker greater than [id number] smoking history. Not vaccinated. Presented worsening respiratory distress nausea and decreased p.o. intake. COVID-19 PCR positive. Flu panel negative. Mild leukocytosis on admission. Acute kidney injury - Last known creatinine was from December 2020. CRP significantly elevated 134. CTA did not show any evidence of pulmonary embolism however showed bilateral airspace disease. Patient most recent low-dose CT was from January 2019 within normal limits. Interval update: Respiratory status continued to improve, weaned to RA, activity 92 to 93%. Afebrile. Improving leukocytosis. CXR from 03/16/20 showed bilateral worsening interstitial infiltrates. Plan: -Lasix 40 mg IV once -Evaluate for hypoxia with exertion prior to discharge. -Ceftriaxone and azithromycin x 5days. Can be weaned to levofloxacin to complete a total of 7 days on discharge. -Remdesivir up until discharge and dexamethasone for 10 days. We will hold off on initiating barcitinib given clinical improvement -Advair 250 Scheduled along with Combivent every 6 as needed. -Chemical DVT prophylaxis and gastric ulcer prophylaxis As thank you for involving pulmonary in this patient care. We will follow the patient in pulmonary clinic in 3 weeks with a full PFT and 6-minute walk testing.
--- NOTE | 2021-03-17 11:09 | HMH.OTEV ---
OT Inpatient Evaluation Rehab OT IP Evaluation Start: 03/17/21 09:32 Freq: ONCE Status: Complete Protocol: Document 03/17/21 10:55 ASHLEY (Rec: 03/17/21 11:08 [facility] [id number]) Rehab OT IP Assessment Subjective History Pt oriented x 3 on arrival. Pt agreeable to engage in therapy evaluation. Pt was admitted via ED on 03/13/20 due to SOB. The following information was copied from history and physical report by his PCP: 6-year-old male patient presenting to the [facility] emergency department with complaints of nausea, fevers/chills/body aches, increasing shortness of breath, weakness, and fatigue . He reports symptoms started gradually increasing after 4 days decided to come to the emergency department. He does report smoking 1 to 2 packs of cigarettes a day for greater than 30 years and drinking usually 4 tall boys a night but has not consumed any alcohol for the fourth previous days. He denies nausea/vomiting/diarrhea and has not had a productive cough . He is unvaccinated Pt has a past medical history of Cardiomyopathy, Congestive Heart Failure, Coronary Artery Disease, Deep Vein Thrombosis , Gastroesophageal Reflux Disease(GERD), Hyperlipidemia, Hypertension, Myocardial Infarction, Palpitations. Pt reports prior to being in the hospital he lived at home alone. Pt claims he lived on the second floor in a one bedroom apartment. Pt claimed he was able to ambulate independently without AE such as cane or walker. Pt also claims he was independent with
--- NOTE | 2021-03-17 11:13 | HMH.PTEV ---
Physical Therapy Evaluation Rehab PT IP Evaluation Start: 03/16/21 13:42 Freq: ONCE Status: Active Protocol: Document 03/17/21 11:02 CRISTHIAN (Rec: 03/17/21 11:12 CRISTHIAN [id number]) Subjective/History History History Patient is a 60 year old male admitted to [facility] 03/13/21 secondary to increasing shortness of breath. Patient diagnsoed with COVID pneumonia . Patient reports that he previously lived at home in an apartment on the second floor . Previously independent with ambulation and transfers. Patient reports that he lives at home alone, but requires help from son and ex- with household maintenance. Subjective Subjective I feel alright, but I think I should stay here for at least another day. Rehab PT IP Eval Objective Appearance Patient Behavior Appropriate,Cooperative Patient Orientation Person,Place,Birthday Difficulty following instructions mild Speech Pattern Mumbled Ambulation Patient Able to Ambulate Yes Ambulation Observation IP General Gait Pattern Observation No Deviations/Normal Ambulation Distance (feet) 20 Ambulation Assistive Device None Ambulation Ability Independent Balance Ability to Arise Able, w/o using arms Sitting Balance Steady, safe Standing Balance Narrow stance w/o support Dynamic Sitting Balance Ability Normal Dynamic Standing Balance Ability Normal Transfers Chair Transfer Ability Independent Sit to Stand Bed Transfer Ability Independent Sit to Stand Chair Transfer Ability Independent ROM All Extremities PT ROM Status WFL MMT All Extremities PT MMT WFL Rehab PT IP prob,goals,plan Problems Date of Evaluation: 03/17/21 PT IP Problems Self care Rehab Potential Rehab Potential Good Discharge Plan PT Discharge Plan Patient is currently independent with all transfers and ambulation. Able to ambulate 20 feet independently with mild dyspnea. PT suggests patient is appropriate for discharge once deemed medically stable by
--- NOTE | 2021-03-17 14:04 | PC.NURSE ---
RESP CARE NOTE: Pt instructed on need of sputum specimen. He requests to leave the specimen cup, and he will obtain a specimen after he gets back into his recliner.
[2021-03-18] VITALS: BP 118/65; PULSE 57; RESP 17; TEMP 36.6; O2SAT 95
[2021-03-18 04:00] VITALS: BP 157/81; PULSE 57; RESP 18; TEMP 36.8; O2SAT 98
[2021-03-18 05:00] VITALS: BMI 17.4
[2021-03-18 06:56] LABS: Basophils # 0.1 K/mm3 (0-0.2); Basophils % 0.8 % (0.1-2.0); Eosinophils % 0.1 % (0.1-12.0); Hematocrit 35.3 % (42.0-52.0); Hemoglobin 11.1 g/dL (14.1-18.0); Lymphocytes # 1.1 K/mm3 (0.7-4.5); Lymphocytes % 16.7 % (10-50); Mean Corpuscular HGB Conc 31.5 g/dL (31.8-35.4); Mean Corpuscular Hemoglobin 29.4 pg (27.0-31.2); Mean Corpuscular Volume 93.2 fl (80-94); Mean Platelet Volume 9.3 fl (7.4-10.4); Monocytes # 0.4 K/mm3 (0.1-1.0); Monocytes % 5.7 % (1.7-9.3); Neutrophils % 76.6 % (37.0-80.0); Platelet Count 408 K/mm3 (142-424); Red Blood Count 3.78 M/mm3 (4.60-6.20); Red Cell Distribution Width 18.2 % (11.5-17.5); White Blood Count 6.5 K/mm3 (4.8-10.8)
[2021-03-18 06:57] LABS: Alanine Aminotransferase 27 U/L (12-78); Albumin Level 2.9 g/dl (3.5-5.0); Albumin/Globulin Ratio 0.9 (1.1-1.8); Alkaline Phosphatase 41 U/L (38-126); Aspartate Amino Transferase 28 U/L (17-59); Bilirubin,Total 0.6 mg/dl (0.2-1.3); Blood Urea Nitrogen 12 mg/dl (9-20); Calcium 7.7 mg/dl (8.4-10.2); Carbon Dioxide 28 mmol/L (22.0-30.0); Chloride 98 mmol/L (98-107); Creatinine Clearance Estimated 154 mL/min (50-200); Estimated Glomerular Filt Rate 219 ml/min (>60); GFR (African American) 266 ML/MIN (>60); Globulin 3.3 g/dL (1.3-3.2); Glucose 151 mg/dl (74-100); Sodium 131 mmol/L (136-145); Total Protein,Serum 6.2 g/dl (6.3-8.2)
[2021-03-18 08:00] VITALS: BP 109/66; PULSE 60; RESP 19; TEMP 36.6; O2SAT 95
--- NOTE | 2021-03-18 09:21 | HMH.PULMPN ---
Internal Medicine - PN: Subj *Date: 03/18/21 *Time: 11:14 Interval history: No acute respiratory events overnight. Patient admits continued improvement in his symptoms. Exam - Constitutional Constitutional:: Present: no acute distress, comfortable - HENMT Exam HENMT: Present: normocephalic, atraumatic - Eye Exam Eyes:: Present: normal appearance both eyes and related structures - Neck Exam Neck:: Present: normal visual inspection - Respiratory Exam Respiratory:: Present: able to speak in complete sentences, no respiratory distress, rales. Absent: wheezing - Cardiovascular Exam Cardiac:: Present: S1, S2 - GI Exam GI:: Present: soft - Skin Exam Skin: Present: warm, no rash - Neurological Exam Neurological: Present: alert, awake, normal cognition - Extremities Exam Extremities: Present: no cyanosis, no clubbing, no edema Assessment and Plan (1) Pneumonia due to COVID-19 virus Status: Acute Category: Medical Code(s): U07.1 - COVID-19; J12.82 - Pneumonia due to coronavirus disease 2018 (2) NARINDER (acute kidney injury) Status: Acute Category: Medical Code(s): N17.9 - Acute kidney failure, unspecified (3) Tobacco use Status: Chronic Category: Social Hx Code(s): Z72.0 - Tobacco use - Assessment and plan all Dx Assessment and Plan for all problems:: #Acute hypoxic respiratory failure: #COVID-19 pneumonia: 60-year-old male current smoker greater than [id number] smoking history. Not vaccinated. Presented worsening respiratory distress nausea and decreased p.o. intake. COVID-19 PCR positive. Flu panel negative. Mild leukocytosis on admission. Acute kidney injury - Last known creatinine was from December 2020. CRP significantly elevated 134. CTA did not show any evidence of pulmonary embolism however showed bilateral airspace disease. Patient most recent low-dose CT was from January 2019 within normal limits. CXR from 03/16/20 showed bilateral worsening interstitial infiltrates. Afebrile. Improving leukocytosis. Respiratory status remained relatively stable needing 1 to 2 L with saturation maintained at 94% and above. Plan: -Continue nasal cannula oxygen supplementation to maintain O2 saturation goal of 88% and above. Please arrange for home oxygen therapy prior to discharge. -Ceftriaxone and azithromycin x 5days. Can be weaned to levofloxacin to complete a total of 7 days on discharge. -Remdesivir up until discharge and dexamethasone for 10 days. We will hold off on initiating barcitinib given clinical improvement -Advair 250 Scheduled along with Combivent every 6 as needed. -Chemical DVT prophylaxis and gastric ulcer prophylaxis As thank you for involving pulmonary in this patient care. We will follow the patient in pulmonary clinic in 3 weeks with a full PFT and 6-minute walk testing.
--- NOTE | 2021-03-18 09:23 | P.PN_ITS ---
Internal Medicine - PN: Subj *Date: 03/18/21 *Time: 09:23 Exam Vital signs and Labs for Last 24 Hours: Temp Pulse Resp BP Pulse Ox 97.9 F 60 19 109/66 L 95 03/18/21 08:00 03/18/21 08:00 03/18/21 08:00 03/18/21 08:00 03/18/21 08:00 Laboratory Results - last 24 hr 03/18/21 06:05: WBC 6.5 D, RBC 3.78 L, Hgb 11.1 L, Hct 35.3 L, MCV 93.2, MCH 29.4, MCHC 31.5 L, RDW 18.2 H, Plt Count 408 D, MPV 9.3, Neut % (Auto) 76.6, Lymph % (Auto) 16.7, [place] % (Auto) 5.7, Eos % (Auto) 0.1, Baso % (Auto) 0.8, Neut # (Auto) 5.0, Lymph # (Auto) 1.1, [place] # (Auto) 0.4, Eos # (Auto) 0.0, Baso # (Auto) 0.1 03/18/21 06:05: Sodium 131 L, Potassium 3.0 L, Chloride 98, Carbon Dioxide 28, Anion Gap 8.0, BUN 12 D, Creatinine 0.40 L, Estimated Creat Clear 154, Estimated GFR 219, Est GFR ( Amer) 266 D, Glucose 151 H D, Calcium 7.7 L , Total Bilirubin 0.6, AST 28, ALT 27, Alkaline Phosphatase 41, Total Protein 6.2 L, Albumin 2.9 L, Globulin 3.3 H, Albumin/Globulin Ratio 0.9 L I & O for Last 24 hours: Intake & Output 03/15/21 03/16/21 03/17/21 03/18/21 23:59 23:59 23:59 23:59 Intake Total 610 / 610 1865 / 1865 220 / 220 120 / 120 Output Total 500 / 675 1900 / 1900 1250 / 1250 Balance 110 / -65 -35 / -35 -1030 / -1030 120 / 120 Weight 52.617 kg 63.219 kg 54.431 kg 55.4 kg Assessment and Plan (1) Pneumonia due to COVID-19 virus Status: Acute Category: Medical Code(s): U07.1 - COVID-19; J12.82 - Pneumonia due to coronavirus disease 2019 (2) NARINDER (acute kidney injury) Status: Acute Category: Medical Code(s): N17.9 - Acute kidney failure, unspecified (3) Tobacco use Status: Chronic Category: Social Hx Code(s): Z72.0 - Tobacco use The patient's infection will respond to the chosen ABx?: Yes Is the patient receiving the right drug, dose, and route?: Yes Could a more targeted ABx be ordered?: No
--- NOTE | 2021-03-18 11:11 | HMH.DCSUM ---
General - General Admission date:: 03/13/21 Discharge date: 03/18/21 HPI HPI: 60-year-old male patient presenting to the [facility] emergency department with complaints of nausea, fevers/chills/body aches, increasing shortness of breath, weakness, and fatigue. He reports symptoms started gradually increasing after 4 days decided to come to the emergency department. He does report smoking 1 to 2 packs of cigarettes a day for greater than 30 years and drinking usually 4 tall boys a night but has not consumed any alcohol for the fourth previous days. He denies nausea/vomiting/diarrhea and has not had a productive cough. He is unvaccinated 03/12/21 CXR: FINDINGS: Lungs: Extensive interstitial opacities bilaterally concerning for moderate viral pneumonia. Pleural spaces: Unremarkable. No pleural effusion. No pneumothorax. Heart/Mediastinum: Unremarkable. No cardiomegaly. Bones/joints: Unremarkable. IMPRESSION: Moderate viral pneumonia. Electronically signed by Primo Perry MD 03/12/[address]: FINDINGS: Pulmonary arteries: Normal. No pulmonary emboli. Aorta: Unremarkable. No aortic aneurysm. No aortic dissection. Lungs: Scattered airspace disease in both lungs findings concerning for moderate pneumonia. Pleural spaces: Unremarkable. No pneumothorax. No pleural effusion. Heart: Unremarkable. No cardiomegaly. No pericardial effusion. Lymph nodes: Unremarkable. No enlarged lymph nodes. Bones/joints: Unremarkable. No acute fracture. Soft tissues: Unremarkable. IMPRESSION: 1. Moderate bilateral pneumonia. 2. No pulmonary embolism Electronically signed by Primo Perry MD 60-year-old man lying in bed resting quietly denies any respiratory distress during the night, current oxygenation 94% on 2 L per nasal cannula. He denies any chest pain or shortness of breath at present. Pulmonary to see Hospital Course Hospital Course: 60-year-old male patient presenting to the [facility] emergency department with complaints of nausea, fevers/chills/body aches, increasing shortness of breath, weakness, and fatigue. He reports symptoms started gradually increasing after 4 days decided to come to the emergency department. He does report smoking 1 to 2 packs of cigarettes a day for greater than 30 years and drinking usually 4 tall boys a night but has not consumed any alcohol for the fourth previous days. He denies nausea/vomiting/diarrhea and has not had a productive cough. He is unvaccinated 03/12/21 CXR: FINDINGS: Lungs: Extensive interstitial opacities bilaterally concerning for moderate viral pneumonia. Pleural spaces: Unremarkable. No pleural effusion. No pneumothorax. Heart/Mediastinum: Unremarkable. No cardiomegaly. Bones/joints: Unremarkable. IMPRESSION: Moderate viral pneumonia. Electronically signed by Primo Perry MD 03/12/21 Chest CTA: FINDINGS: Pulmonary arteries: Normal. No pulmonary emboli. Aorta: Unremarkable. No aortic aneurysm. No aortic dissection. Lungs: Scattered airspace disease in both lungs findings concerning for moderate pneumonia. Pleural spaces: Unremarkable. No pneumothorax. No pleural effusion. Heart: Unremarkable. No cardiomegaly. No pericardial effusion. Lymph nodes: Unremarkable. No enlarged lymph nodes. Bones/joints: Unremarkable. No acute fracture. Soft tissues: Unremarkable. IMPRESSION: 1. Moderate bilateral pneumonia. 2. No pulmonary embolism Electronically signed by Primo Perry MD 03/17/21 CXR: FINDINGS: Lungs: Interval worsening of patchy bilateral airspace opacities. Pleural spaces: Unremarkable. No pleural effusion. No pneumothorax. Heart/Mediastinum: Unremarkable. No cardiomegaly. Bones/joints: Remote left-sided rib fractures. IMPRESSION: Interval worsening of multilobar pneumonia. Electronically signed by Andreea Jimenez MD Plan: -Continue nasal cannula oxygen suppl
[2021-03-18 12:00] VITALS: BP 135/77; PULSE 56; RESP 20; TEMP 36.7; O2SAT 96
[2021-03-18 13:33] VITALS: O2SAT 95
== END 2021-03-18 15:41 | disposition home or self-care (01) | DRG 177 ==
LOC: ER 22:22 → 2ND 03-13 00:40
PROVIDERS: Internal Medicine Pulmonary Disease; Nurse Practitioner Family; Admitting Provider Emergency Medicine; Emergency Provider Emergency Medicine; PCP Physician Assistant; Visit Provider Family Medicine
DX: U07.1 COVID-19 (principal); J12.82 Pneumonia due to coronavirus disease 2019; J96.01 Acute respiratory failure with hypoxia; E43 Unspecified severe protein-calorie malnutrition; I42.9 Cardiomyopathy, unspecified; N17.9 Acute kidney failure, unspecified; Z68.1 Body mass index [BMI] 19.9 or less, adult; I11.0 Hypertensive heart disease with heart failure; I50.9 Heart failure, unspecified; I25.10 Atherosclerotic heart disease of native coronary artery without angina pectoris; F17.210 Nicotine dependence, cigarettes, uncomplicated; Z86.718 Personal history of other venous thrombosis and embolism
CPT/HCPCS: 36415; 71045; 71046; 71275; 80048; 80053; 80076; 80305; 81001; 83605; 83735; 83880; 84145; 84436; 84443; 84484; 85007; 85025; 85651; 86140; 87086; 93005; 94640; 94760; 94761; 96365; 96375; 97116; 97162; 97166; 99284; C9803; J0456; J0692; J2405; Q9967; U0003; U0005

== ENCOUNTER → 2021-04-14 09:53 | Outpatient (CLI) | payer MEDICARE, MEDICAID, SELFPAY ==
[2021-04-14 10:35] VITALS: PULSE 79; PULSE 81
== END ==
PROVIDERS: PCP Nurse Practitioner Family; Visit Provider Internal Medicine Pulmonary Disease
DX: R06.00 Dyspnea, unspecified (principal)
CPT/HCPCS: 94060; 94618; 94640; 94727; 94729

== ENCOUNTER → 2021-05-01 16:00 | Outpatient (CLI) | payer MEDICARE, MEDICAID, SELFPAY ==
[2021-05-01 18:26] LABS: Amphetamine/Metha Screen,Urine Negative ng/ml (<1000); Barbiturates Screen,Urine Negative ng/ml (<200)
[2021-05-01 18:27] LABS: Benzodiazepines Screen,Urine Negative ng/ml (<200); Cannabinoid Screen,Urine Negative ng/ml (<50)
[2021-05-01 18:28] LABS: Cocaine Screen,Urine Negative ng/ml (<300)
[2021-05-01 18:29] LABS: Methadone Screen,Urine Negative ng/ml (<300)
[2021-05-01 18:30] LABS: Opiate Screen,Urine Negative ng/ml (<300); Phencyclidine Screen,Urine Negative ng/ml (<25)
== END ==
PROVIDERS: Visit Provider Nurse Practitioner Family
DX: T40.1X1A Poisoning by heroin, accidental (unintentional), initial encounter (principal)
CPT/HCPCS: 80305

== ENCOUNTER → 2021-06-19 12:59 | Outpatient (CLI) | payer MEDICARE, MEDICAID, SELFPAY ==
--- NOTE | 2021-06-19 13:00 | CT_ITS ---
FINAL REPORT CLINICAL HISTORY: . lung screening, 1 pack per day x 45 years COMPARISON: CTA chest dated March 12, 2021 FINDINGS: Low-Dose Chest CT CTDI vol (mGy): 2.90 DLP (mGy-cm): 109.42 Axial images were obtained from the lung apex to the mid abdomen by computed tomography. Low-dose protocol was utilized. FINDINGS: CHEST: There is no axillary adenopathy. There is no hilar or mediastinal adenopathy. The heart is proper size. There is no pericardial or pleural effusion. Limited images of the upper abdomen are unremarkable. Lung window images demonstrate several calcified granulomas. There is marked improvement in the bilateral multifocal pulmonary opacities with persistent multifocal ground-glass opacities. There is bibasilar atelectasis or scarring. IMPRESSION: Lung RADS category 2. Recommend 12 month follow-up low-dose chest CT. Reviewed, Interpreted and Dictated by Sebastián Vizcaino III, MD Transcribed by Vidal Varela Authenticated by Sebastián Vizcaino III, MD on 06/19/2021 02:15:59 PM [facility]
== END ==
PROVIDERS: PCP Emergency Medicine; Visit Provider Internal Medicine Pulmonary Disease
DX: Z87.891 Personal history of nicotine dependence (principal); Z12.2 Encounter for screening for malignant neoplasm of respiratory organs
CPT/HCPCS: 71271

== ENCOUNTER → 2021-08-01 07:29 | Outpatient (CLI) | payer MEDICARE, MEDICAID, SELFPAY ==
[2021-07-31 17:24] LABS: Alanine Aminotransferase 17 U/L (12-78); Albumin Level 4.8 g/dl (3.5-5.0); Albumin/Globulin Ratio 1.4 (1.1-1.8); Alkaline Phosphatase 42 U/L (38-126); Anion Gap 17.3 mEq/L (5-15); Aspartate Amino Transferase 28 U/L (17-59); Bilirubin,Total 0.3 mg/dl (0.2-1.3); Blood Urea Nitrogen 13 mg/dl (9-20); Calcium 9.8 mg/dl (8.4-10.2); Carbon Dioxide 23 mmol/L (22.0-30.0); Chloride 104 mmol/L (98-107); Chol/HDL Ratio 2.8 (1-3.5); Cholesterol 159 mg/dl (140-200); Estimated Glomerular Filt Rate 99 ml/min (>60); GFR (African American) 119 ML/MIN (>60); Globulin 3.4 g/dL (1.3-3.2); Glucose 95 mg/dl (74-100); HDL Cholesterol 57 mg/dl (40-60); Potassium 4.3 mmoL/L (3.5-5.1); Sodium 140 mmol/L (136-145); Total Protein,Serum 8.2 g/dl (6.3-8.2); Triglycerides 123 mg/dl (30-150); VLDL Cholesterol 25 mg/dL (0-40)
[2021-07-31 17:27] LABS: Basophils # 0.2 K/mm3 (0-0.2); Basophils % 3.4 % (0.1-2.0); Eosinophils # 0.3 K/mm3 (0.0-0.4); Eosinophils % 4.6 % (0.1-12.0); Hematocrit 38.4 % (42.0-52.0); Hemoglobin 12.1 g/dL (14.1-18.0); Lymphocytes # 2.1 K/mm3 (0.7-4.5); Lymphocytes % 31.1 % (10-50); Mean Corpuscular HGB Conc 31.5 g/dL (31.8-35.4); Mean Corpuscular Hemoglobin 29.9 pg (27.0-31.2); Mean Corpuscular Volume 94.7 fl (80-94); Mean Platelet Volume 9.3 fl (7.4-10.4); Monocytes # 0.5 K/mm3 (0.1-1.0); Monocytes % 6.8 % (1.7-9.3); Neutrophils # 3.7 K/mm3 (1.8-7.8); Neutrophils % 54.1 % (37.0-80.0); Platelet Count 335 K/mm3 (142-424); Red Blood Count 4.06 M/mm3 (4.60-6.20); Red Cell Distribution Width 18.6 % (11.5-17.5); White Blood Count 6.9 K/mm3 (4.8-10.8)
[2021-07-31 17:35] LABS: Direct LDL Cholesterol 58.97 mg/dL (100-129)
[2021-07-31 17:37] LABS: Amphetamine/Metha Screen,Urine Negative ng/ml (<1000)
[2021-07-31 17:38] LABS: Barbiturates Screen,Urine Negative ng/ml (<200)
[2021-07-31 17:39] LABS: Benzodiazepines Screen,Urine Negative ng/ml (<200); Cannabinoid Screen,Urine Negative ng/ml (<50)
[2021-07-31 17:40] LABS: Cocaine Screen,Urine Negative ng/ml (<300); Methadone Screen,Urine Negative ng/ml (<300)
[2021-07-31 17:41] LABS: Opiate Screen,Urine Negative ng/ml (<300)
[2021-07-31 17:42] LABS: Phencyclidine Screen,Urine Negative ng/ml (<25)
[2021-07-31 17:55] LABS: Thyroid Stimulating Hormone 1.04 uIU/mL (0.465-4.68)
[2021-07-31 18:15] LABS: Vitamin B12 326 pg/mL (239-931)
== END ==
PROVIDERS: PCP Physician Assistant; Visit Provider Physician Assistant
DX: E55.9 Vitamin D deficiency, unspecified (principal); E78.5 Hyperlipidemia, unspecified; R53.83 Other fatigue; I10 Essential (primary) hypertension; Z79.899 Other long term (current) drug therapy
CPT/HCPCS: 80053; 80061; 80305; 82306; 82607; 84443; 85025

== ENCOUNTER → 2021-10-02 06:31 | Outpatient (CLI) | payer MEDICARE, MEDICAID, SELFPAY ==
[2021-10-02 16:42] LABS: Prostate Specific Ag Screen 1.5 ng/ml (0.0-4.0)
== END ==
PROVIDERS: PCP Physician Assistant; Visit Provider Physician Assistant
DX: Z12.5 Encounter for screening for malignant neoplasm of prostate (principal)
CPT/HCPCS: G0103

== ENCOUNTER → 2021-10-03 10:31 | Outpatient (CLI) | payer MEDICARE, MEDICAID, SELFPAY ==
--- NOTE | 2021-10-03 10:47 | XR_ITS ---
FINAL REPORT CLINICAL HISTORY: neck pain, turning to right FINDINGS: CERVICAL SPINE 5 views were obtained. There is no acute fracture. There is no malalignment. There are mild and moderate degenerative changes. There is mild retrolisthesis of L3 on L4. There is mild left C6-7 neural foraminal narrowing. There is no soft tissue abnormality. IMPRESSION: Degenerative change with no acute bony abnormality. Reviewed, Interpreted and Dictated by Sebastián Vizcaino III, MD Transcribed by Shannan Blake Authenticated and [facility]
== END ==
PROVIDERS: PCP Emergency Medicine; Visit Provider Physician Assistant
DX: M54.2 Cervicalgia (principal)
CPT/HCPCS: 72050

== ENCOUNTER → 2021-10-09 14:24 | Outpatient (CLI) | payer MEDICARE, MEDICAID, SELFPAY ==
--- NOTE | 2021-10-09 14:25 | MR_ITS ---
FINAL REPORT CLINICAL HISTORY: right sided neck pain pt stated pain and tingling from neck to shoulder headaches COMPARISON: September 15, 2018 FINDINGS: Multiplanar MR imaging of the cervical spine was performed without contrast. On the sagittal T2-weighted images, disc degeneration is seen throughout. There are endplate changes at several levels which is worse at C3-4 and has progressed at C3-4 since the prior exam. There is no evidence of fracture. There is mild retrolisthesis of C3 on C4 mild anterolisthesis of C5 on C6 and mild retrolisthesis of C6 on C7. The cervical spinal cord has an unremarkable appearance without evidence of mass, edema or syrinx. No significant canal stenosis is identified. The cervicomedullary junction is normal. C2-3: There is a small central disc protrusion. No significant canal stenosis or neural foraminal narrowing. C3-4: A disc osteophyte complex is present with severe right moderate left neural foraminal narrowing. C4-5: Bilateral uncovertebral osteophytes are present with moderate right and mild left neural foraminal narrowing. C5-6: An annular disc bulge is present with bilateral uncovertebral osteophytes. There is mild bilateral neural foraminal narrowing. C6-7: A disc osteophyte complex is present with severe bilateral neural foraminal narrowing. C7-T1: There is no significant canal stenosis or neural foraminal narrowing. IMPRESSION: Multilevel degenerative disc disease and spondylosis with areas of neural foraminal narrowing which is worse at C6-7. Similar to the prior exam. Endplate changes at several levels which has progressed at C3-4. Reviewed, Interpreted and Dictated by Sebastián Vizcaino III, MD Transcribed by Mikala Billings Authenticated and [facility]
== END ==
PROVIDERS: PCP Emergency Medicine; Visit Provider Physician Assistant
DX: M54.2 Cervicalgia
CPT/HCPCS: 72141; 76376

== ENCOUNTER → 2021-12-22 13:56 | Outpatient (POV) | payer MEDICARE, MEDICAID, SELFPAY ==
[2021-12-22 14:30] VITALS: BP 146/95; PULSE 104; RESP 18; TEMP 37.1; O2SAT 98; BMI 19.8
--- NOTE | 2021-12-22 16:43 | EXP.PAIN.OV ---
HPI Data of Consult Patient: new to practice Consult date: 12/22/21 Requesting Physician: Shae Solorio APRN Primary Care Provider: Patrick Sigala MD Consult Narrative Reason for consult: Neck pain, low back pain History of present illness: Mr. Nelson is a 61 year old male who presents today as a new patient. He is a referral from Narda Mckinley's office. Today he rates his pain a 10 out of 10. He states the pain is primarily all along his neck on the right side. Patient denies any new trauma or injury. Patient states he has had this pain for years and it is progressively gotten worse over time. 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 Patient also states he does have occasional low back pain however it is managed fairly well. Patient describes this as a throbbing sensation that is worse with increased activity and does cause numbness and tingling into his right arms and fingers. Patient also states he does have occasional tingling in his bilateral lower extremities. Patient does currently manage his pain symptoms with Excedrin migraine or tension headache. He states he does get better relief with the Excedrin tension and he takes it in combination with ibuprofen. Patient is also prescribed gabapentin 600 mg 3 times a day from Dr. Sigala's office however he states he does not notice a significant improvement of his symptoms. Patient denies any side effects from this medication. Patient has not tried any heat/ice, topicals, physical therapy or chiropractor in the past. His Best is [id number]. It is been reviewed and appropriate. CC: Sahe Solorio APRN [facility] Medical History (Updated 12/22/21 @ 16:48 by Shae Solorio APRN) Bilateral leg edema Cervical disc disease with myelopathy Hypothyroidism Lumbar disc disease with radiculopathy Lumbar disc disease with radiculopathy Smoker Tobacco dependence Vitamin D deficiency Surgical History S/P cholecystectomy Social History (Updated 12/22/21 @ 14:34 by Patti Gregory RN) Smoking Status: Current every day smoker tobacco type: cigarettes packs per day: 1 second hand exposure: Yes alcohol intake: current substance use type: denies use and methamphetamine current occupational status: other Travel in the last 8 weeks: None household members: none housing: apartment current occupational exposures/hazards: No caffeine: Yes Review of Systems Review of Systems Review of systems:: pertinent systems reviewed and negative unless documented below Review of systems (narrative): Review of Systems: General: No recent weight changes, no fever, no sleep disturbances Respiratory: No cough, no shortness of air, no recurring pulmonary infections Cardiovascular/peripheral vascular: No chest pain, no palpitations, no edema, no shortness of breath Gastrointestinal: No new onset incontinence, normal bowel movements reported Genitourinary: No new onset incontinence Musculoskeletal: Neck pain, right arm pain Psychiatric: [Normal mood/affect] Neurological: [Denies weakness in extremities], [denies balance issues] Meds Home Medications and Allergies Home Medications Medication Instructions Recorded Confirmed Type fluticasone propionate 50 1 spray intranasal DAILY Allergy 03/12/21 12/22/21 History mcg/actuation nasal symptoms spray,suspension naloxone 4 mg/actuation nasal spray 4 mg intranasal ONCE PRN OVERDOSE 03/12/21 12/22/21 History albuterol sulfate 90 mcg/actuation 1 inh inhalation QID PRN shortness 04/21/21 12/22/21 Rx aerosol inhaler of breath or wheezing #8.5 grams levothyroxine 25 mcg tablet 25 mcg PO DAILY hypothyroidism #90 10/02/21 12/22/21 Rx tabs lisinopril 10 mg tablet 10 mg PO DAILY High blood pressure 10/02/21 12/22/21 Rx #90 tabs metoprolol tartrate 25 mg tablet 12.5 mg PO BID High blood pressure 10/02/21
== END | disposition home or self-care (01) ==
PROVIDERS: PCP Emergency Medicine; Visit Provider Nurse Practitioner Family
DX: M54.50 Low back pain, unspecified; M50.123 Cervical disc disorder at C6-C7 level with radiculopathy; Z72.0 Tobacco use
CPT/HCPCS: 99202; G0463

== ENCOUNTER → 2022-04-28 10:27 | Outpatient (POV) | payer MEDICARE, MEDICAID, SELFPAY ==
--- NOTE | 2022-04-28 11:00 | EXP.PAIN.SOA ---
[facility] Pain Management SOAP Note Subjective:: Patient is a pleasant 61-year-old male who presents today for follow-up. We are currently treating the patient for degenerative disc disease of cervical spine with cervical radiculopathy symptoms, neck pain, low back pain. Today he rates his pain a 8 out of 10. Patient denies any new trauma or injury. Patient denies any change location or type of pain he experiences. Patient does state he is pain has worsened from her last visit. He does describe this as a throbbing sensation that is worse with increased activity and does cause numbness and tingling into his right arm down to his fingers. He does state he has difficulty performing activities of daily living such as cooking and cleaning due to his increased pain symptoms and limited range of motion. We did previously discussed doing a cervical epidural however at that time he was not interested in proceeding forward however he does state he would like to get this injection. Patient was prescribed tizanidine 4 mg 3 times daily at our last visit and he states this has provided significant improvement however he is asking for possible increase in refill of this medication. Patient is currently managed with gabapentin 600 mg 3 times a day. Patient denies any side effects from the medication. His Best is [id number]. Its been reviewed and appropriate. Review of Systems: General: No recent weight changes, no fever, no sleep disturbances Respiratory: No cough, no shortness of air, no recurring pulmonary infections Cardiovascular/peripheral vascular: No chest pain, no palpitations, no edema, no shortness of breath Gastrointestinal: No new onset incontinence, normal bowel movements reported Genitourinary: No new onset incontinence Musculoskeletal: Neck pain, arm pain Psychiatric: [Normal mood/affect] Neurological: [Denies weakness in extremities], [denies balance issues] Objective:: Physical Exam: General: Alert and oriented x3, no acute distress, pleasant and cooperative Lungs: Respirations even and unlabored, symmetrical chest expansion Eyes: PERRL Musculoskeletal: Flexion and extension of cervical [spine] somewhat guarded secondary to pain, [antalgic gait noted] Neurological: Speech clear, no gross sensory deficit FINDINGS: Multiplanar MR imaging of the cervical spine was performed without contrast.? On the sagittal T2-weighted images, disc degeneration is seen throughout.? There are endplate changes at several levels which is worse at C3-4 and has progressed at C3-4 since the prior exam.? There is no evidence of fracture.? There is mild retrolisthesis of C3 on C4 mild anterolisthesis of C5 on C6 and mild retrolisthesis of C6 on C7.? The cervical spinal cord has an unremarkable appearance without evidence of mass, edema or syrinx.? No significant canal stenosis is identified. The cervicomedullary junction is normal.? ? C2-3:? There is a small central disc protrusion.? No significant canal stenosis or neural foraminal narrowing.? C3-4:? A disc osteophyte complex is present with severe right moderate left neural foraminal narrowing.? C4-5:? Bilateral uncovertebral osteophytes are present with moderate right and mild left neural foraminal narrowing.? C5-6:? An annular disc bulge is present with bilateral uncovertebral osteophytes.? There is mild bilateral neural foraminal narrowing.? C6-7:? A disc osteophyte complex is present with severe bilateral neural foraminal narrowing. C7-T1:? There is no significant canal stenosis or neural foraminal narrowing. IMPRESSION: Multilevel degenerative disc disease and spondylosis with areas of neural foraminal narrowing which is worse at C6-7.? Similar to the prior exam.? ? Endplate changes at several levels which has progressed at C3-4. Reviewed, Interpreted and Dictated by Sebastián Vizcaino III, MD Transcribed by Mikala Billings Authenticated and
[2022-04-28 11:38] VITALS: BP 149/83; PULSE 64; RESP 18; O2SAT 98; BMI 20.7
== END | disposition home or self-care (01) ==
PROVIDERS: PCP Emergency Medicine; Visit Provider Nurse Practitioner Family
DX: M50.123 Cervical disc disorder at C6-C7 level with radiculopathy (principal); M54.50 Low back pain, unspecified
CPT/HCPCS: 99212; G0463

== ENCOUNTER 2022-05-12 10:04 | Day surgery (SDC) | payer MEDICARE, MEDICAID, SELFPAY ==
[2022-05-12 10:27] VITALS: BP 156/91; PULSE 84; RESP 18; TEMP 36.7; O2SAT 96
[2022-05-12 11:16] VITALS: BP 172/100; PULSE 103; RESP 20; O2SAT 98
[2022-05-12 11:17] VITALS: BP 172/100; PULSE 103; RESP 20; O2SAT 98
--- NOTE | 2022-05-12 11:19 | P.PCN_ITS ---
Procedure Date: 05/12/22 Time: 11:20 Anesthesiologist:: Garrett Augustine CRNA Complications:: None Pre-procedure Diagnosis:: Degenerative disc disease cervical spine multilevels. Cervical radiculopathy Post-procedure Diagnosis:: Same Indications for Procedure:: Patient is a very pleasant 61-year-old male that comes our clinic today for cervical epidural steroid injection C6-7 level. Patient describes his cervical neck pain as posterior in nature as well as bilateral arm radicular symptoms. Right greater than left. He rates his pain 8/10. Procedure Details:: Procedure:Cervical epidural steroid injection Informed consent was obtained and the risks and benefits of the procedure were explained to the patient. The patient was taken to the procedure room and noninvasive monitors placed, including noninvasive blood pressure cuff and pulse oximeter. The neck was prepped using Chloraprep as a cleansing solution. The C6- C7 interspace was viewed using fluroscopy. The skin and subcutaneous tissues were anesthetized using lidocaine 1.5% and a 25-gauge needle. After this an 18- gauge Touhy epidural needle was placed into the C6-C7 interspace under fluroscopy guidance and advanced using loss of resistance to air until the epidural space was encountered. After confirmation of needle placement in the epidural space using contrast dye, a solution containing normal saline, 2 mL and Depo-Medrol 80 mg was incrementally injected into the cervical epidural space.~ The patient tolerated the procedure well with no complications. The patient was observed in the Pain Clinic and then discharged home neurologically intact. Plan and Disposition:: Patient was discharged without incident.
[2022-05-12 11:23] VITALS: BP 158/93; PULSE 89; RESP 18; O2SAT 96
== END 2022-05-12 11:23 | disposition home or self-care (01) ==
PROVIDERS: PCP Emergency Medicine; Visit Provider Nurse Anesthetist, Certified Registered
DX: M50.123 Cervical disc disorder at C6-C7 level with radiculopathy (principal)
CPT/HCPCS: 62321; J1040; Q9966

== ENCOUNTER → 2022-05-29 09:43 | Outpatient (POV) | payer MEDICARE, MEDICAID, SELFPAY ==
[2022-05-29 10:02] VITALS: BP 117/81; PULSE 72; RESP 18; O2SAT 98; BMI 20.5
--- NOTE | 2022-05-29 10:02 | EXP.PAIN.SOA ---
[facility] Pain Management SOAP Note Subjective:: Patient is a pleasant 61-year-old male who presents today for follow-up of cervical epidural steroid injection at C6-C7 on 05/12/2022. We are currently treating the patient for degenerative disc disease of cervical spine with cervical radiculopathy symptoms, neck pain, low back pain. Today he states that he had at least 50% improvement following this last injection however he feels like he is going back towards his baseline. He rates his pain a 5 out of 10. He states he continues to have tingling that radiates down from his upper back/neck. He states this pain is aggravated by activities such as driving or in the mornings. He does state this affects his ability to perform activities of daily living such as cooking and cleaning. He does state that he has limited range of motion due to his aggravated pain symptoms. He is currently managed with tizanidine 6 mg 3 times a day and gabapentin 600 mg 3 times a day. Patient denies any side effects from these medications. He states they do help his pain symptoms. He does state that at this time he does not need any additional refills. His Best is [id number]. Its been reviewed and appropriate. Review of Systems: General: No recent weight changes, no fever, no sleep disturbances Respiratory: No cough, no shortness of air, no recurring pulmonary infections Cardiovascular/peripheral vascular: No chest pain, no palpitations, no edema, no shortness of breath Gastrointestinal: No new onset incontinence, normal bowel movements reported Genitourinary: No new onset incontinence Musculoskeletal: Neck pain Psychiatric: [Normal mood/affect] Neurological: [Denies weakness in extremities], [denies balance issues] Objective:: Physical Exam: General: Alert and oriented x3, no acute distress, pleasant and cooperative Lungs: Respirations even and unlabored, symmetrical chest expansion Eyes: PERRL Musculoskeletal: Flexion and extension of cervical [spine] somewhat guarded secondary to pain, [antalgic gait noted] Neurological: Speech clear, no gross sensory deficit Assessment:: Degenerative disc disease of cervical spine with cervical radiculopathy symptoms, neck pain, low back pain Plan:: Patient had significant improvement with his last cervical epidural of at least 50% however only lasting approximately 1-1/2 weeks. Patient did have limited range of motion of his cervical spine during today's visit. I have discussed with the patient that he may benefit from a repeat cervical epidural steroid injection. Risk and benefits were discussed with the patient and he would like to proceed forward with this plan of care. We will schedule the patient for a KAELYN C6-C7. Patient has been instructed to contact the clinic with any concerns before the next appointment. Dr. Benavidez has reviewed this note and agrees with this plan of care. This note was dictated using voice recognition software and make contain errors or omissions. [facility] Disclaimer: The information contained in this section may have been updated after the patient was seen, as this information can be updated by other users. Medical History Bilateral leg edema Cervical disc disease with myelopathy COPD (chronic obstructive pulmonary disease) Dyspnea on exertion History of COVID-19 Hypothyroidism Left ventricular hypokinesis Lumbar disc disease with radiculopathy Lumbar disc disease with radiculopathy Non-ST elevation myocardial infarction (NSTEMI) Screening for lung cancer Smoker Smoking greater than 30 pack years Tobacco abuse counseling Tobacco abuse disorder Tobacco dependence Vitamin D deficiency Surgical History History of colonoscopy Hx of cholecystectomy S/P cholecystectomy Family History Other Cancer Diabetes Tuberculosis Social His
== END ==
PROVIDERS: PCP Emergency Medicine; Visit Provider Nurse Practitioner Family
DX: M50.123 Cervical disc disorder at C6-C7 level with radiculopathy (principal)
CPT/HCPCS: 99212; G0463

== ENCOUNTER → 2022-08-05 14:03 | Outpatient (POV) | payer MEDICARE, MEDICAID, SELFPAY ==
[2022-08-05 14:23] VITALS: BP 148/93; PULSE 110; RESP 18; O2SAT 97
--- NOTE | 2022-08-05 14:40 | EXP.PAIN.SOA ---
[facility] Pain Management SOAP Note Subjective:: Patient is a pleasant 61-year-old male who presents today for follow-up and medication refill. We are currently treating the patient for degenerative disc disease of cervical spine with cervical radiculopathy symptoms, neck pain, low back pain. Today he rates his pain a 5 out of 10. Patient denies any new trauma or injury. Patient denies any change to location or type of pain he experiences. He does state he is having worsening pain and he has neck with radiating symptoms into his upper extremities and describes this as an aching, throbbing sensation with numbness and tingling. Patient does state it interferes with his ability to perform activities of daily living such as cooking and cleaning. Patient did previously have a cervical epidural back in April that did provide more than 50% improvement and lasted several months. He is interested in repeating this injection at today's visit. Patient is currently managed with tizanidine 4 mg 3 times a day from our office and gabapentin 600 mg 3 times a day from his primary care doctor. Patient denies any side effects from these medications. His Best is [id number]. Its been reviewed and appropriate. Review of Systems: General: No recent weight changes, no fever, no sleep disturbances Respiratory: No cough, no shortness of air, no recurring pulmonary infections Cardiovascular/peripheral vascular: No chest pain, no palpitations, no edema, no shortness of breath Gastrointestinal: No new onset incontinence, normal bowel movements reported Genitourinary: No new onset incontinence Musculoskeletal: Neck pain, bilateral upper extremity pain Psychiatric: [Normal mood/affect] Neurological: [Denies weakness in extremities], [denies balance issues] Objective:: GoalPhysical Exam: General: Alert and oriented x3, no acute distress, pleasant and cooperative Lungs: Respirations even and unlabored, symmetrical chest expansion Eyes: PERRL Musculoskeletal: Flexion and extension of cervical [spine] somewhat guarded secondary to pain, [antalgic gait noted] Neurological: Speech clear, no gross sensory deficit Assessment:: Degenerative disc disease of cervical spine with cervical radiculopathy symptoms, neck pain, low back pain Plan:: Patient is experiencing significant pain and he has neck with radiating symptoms into his upper extremities. Patient has tried and failed conservative therapy such as oral medication, heat and ice, topicals, physical therapy, at home stretching and exercise for longer than 6 weeks. Patient has had previously a cervical epidural that did provide more than 50% improvement lasting several months. I have discussed with the patient that he may benefit from repeat cervical epidural steroid injection. Risk and benefits were discussed with the patient and he would like to proceed forward with this plan of care. Patient is not on any blood thinners. I will refill the patient's tizanidine 4 mg 3 times daily and provide a 1 month supply of this medication. I will also send a referral to neurosurgery there at [place] with Dr. Lamberto Walker for possible surgical intervention for his cervical pain. Patient will be scheduled for a KAELYN C6-C7. Patient has been instructed to contact the clinic with any concerns before the next appointment. Dr. Benavidez has reviewed this note and agrees with this plan of care. This note was dictated using voice recognition software and make contain errors or omissions. [facility] Disclaimer: The information contained in this section may have been updated after the patient was seen, as this information can be updated by other users. Medical History Bilateral leg edema Cervical disc disease with myelopathy COPD (chronic obstructive pulmonary disease) Dyspnea on exertion History of COVID-19 Hypothyroidism Left ventricular hypokinesis Lumbar disc disease with radiculopathy Lumbar
== END | disposition home or self-care (01) ==
PROVIDERS: PCP Emergency Medicine; Visit Provider Nurse Practitioner Family
DX: M50.123 Cervical disc disorder at C6-C7 level with radiculopathy (principal)
CPT/HCPCS: 99212; G0463

== ENCOUNTER 2022-08-18 09:52 | Day surgery (SDC) | payer MEDICARE, MEDICAID, SELFPAY ==
[2022-08-18 10:05] VITALS: BP 125/80; PULSE 65; RESP 18; TEMP 36.6; O2SAT 100
[2022-08-18 10:12] VITALS: BP 144/78; PULSE 69; RESP 18; O2SAT 97
[2022-08-18 10:14] VITALS: BP 144/78; PULSE 69; RESP 18; O2SAT 97
--- NOTE | 2022-08-18 10:15 | P.PCN_ITS ---
Procedure Date: 08/18/22 Time: 10:00 Anesthesiologist:: Garrett Augustine CRNA Complications:: None Pre-procedure Diagnosis:: Degenerative disc disease cervical spine multilevels. Cervical radiculopathy. Post-procedure Diagnosis:: Same. Indications for Procedure:: Very pleasant 61-year-old male that comes our clinic today for a second cervical epidural steroid injection. Patient reports 2 to 3 days of improvement after his first injection 6 weeks ago. I discussed in detail with the patient regarding having a second injection which could result in much better improvement. However, I also shared with the patient if the second injection does not help we will not continue with injection therapy. I feel he would need a surgical consult at that time. Patient voices understanding. Patient has difficulty with cervical flexion, extension, left and right rotation. Patient has difficulty with bilateral arm radicular symptoms at times. He rates his pain 7/10. Procedure Details:: Procedure:Cervical epidural steroid injection Informed consent was obtained and the risks and benefits of the procedure were explained to the patient. The patient was taken to the procedure room and noninvasive monitors placed, including noninvasive blood pressure cuff and pulse oximeter. The neck was prepped using Chloraprep as a cleansing solution. The C6- C7 interspace was viewed using fluroscopy. The skin and subcutaneous tissues were anesthetized using lidocaine 1.5% and a 25-gauge needle. After this an 18- gauge Touhy epidural needle was placed into the C6-C7 interspace under fluroscopy guidance and advanced using loss of resistance to air until the epidural space was encountered. After confirmation of needle placement in the epidural space using contrast dye, a solution containing normal saline, 2 mL and Depo-Medrol 80 mg was incrementally injected into the cervical epidural space.~ The patient tolerated the procedure well with no complications. The patient was observed in the Pain Clinic and then discharged home neurologically intact. Plan and Disposition:: Patient was discharged without incident.
[2022-08-18 10:16] VITALS: BP 137/82; PULSE 69; RESP 18; O2SAT 100
== END 2022-08-18 10:16 | disposition home or self-care (01) ==
PROVIDERS: PCP Emergency Medicine; Visit Provider Nurse Anesthetist, Certified Registered
DX: M50.10 Cervical disc disorder with radiculopathy, unspecified cervical region (principal)
CPT/HCPCS: 62321; J1040; Q9966

== ENCOUNTER → 2022-09-11 10:55 | Outpatient (POV) | payer MEDICARE, MEDICAID, SELFPAY ==
[2022-09-11 11:10] VITALS: BP 144/98; PULSE 119; RESP 18; O2SAT 93
--- NOTE | 2022-09-11 11:41 | EXP.PAIN.SOA ---
[facility] Pain Management SOAP Note Subjective:: Patient is a very pleasant 61-year-old male that comes our clinic today for follow-up visit after receiving a second cervical epidural steroid injection at C6-7 level. Patient reports 2 days relief after his first cervical epidural steroid injection. 2 weeks relief of 90% relief after his second injection at the same level. Patient cervical MRI shows multilevel disc degenerative disease. Multilevel disc bulge. Patient describes her cervical neck pain as constant, dull, aching. I discussed in detail with the patient regarding treatment options. He is currently being managed with gabapentin 600 mg 1 p.o. 3 times daily from his PCP. We are managing him with tizanidine 4 mg 1 p.o. 3 times daily. In my opinion he needs to have a consultation with spine business operations specialist. I told the patient he would be welcome to come back and see us if in fact no surgery was recommended. I reviewed his cervical MRI with him. Answered his questions. Objective:: Patient is awake alert [place] x3. In no acute distress. Flexion-extension lumbar spine somewhat guarded secondary to pain. Deep tendon reflexes upper lower extremities normal. Motor strength upper and lower extremities normal. There is no gross sensory deficit. Gait is normal. Assessment:: Degenerative disc cervical spine multilevels. Cervical radiculopathy. Multilevel cervical disc bulge. Plan:: We will refer the patient for spine surgery consultation. He will return to see us after visit. [facility] Disclaimer: The information contained in this section may have been updated after the patient was seen, as this information can be updated by other users. Medical History Bilateral leg edema Cervical disc disease with myelopathy COPD (chronic obstructive pulmonary disease) Dyspnea on exertion History of COVID-19 Hypothyroidism Left ventricular hypokinesis Lumbar disc disease with radiculopathy Lumbar disc disease with radiculopathy Non-ST elevation myocardial infarction (NSTEMI) Screening for lung cancer Smoker Smoking greater than 30 pack years Tobacco abuse counseling Tobacco abuse disorder Tobacco dependence Vitamin D deficiency Surgical History History of colonoscopy Hx of cholecystectomy S/P cholecystectomy Family History Other Cancer Diabetes Tuberculosis Social History Smoking Status: Current every day smoker tobacco type: cigarettes packs per day: 1 second hand exposure: Yes alcohol intake: current substance use type: denies use and methamphetamine current occupational status: retired Travel in the last 8 weeks: None household members: none housing: apartment current occupational exposures/hazards: No caffeine: Yes
== END ==
PROVIDERS: PCP Emergency Medicine; Visit Provider Nurse Anesthetist, Certified Registered
DX: M50.10 Cervical disc disorder with radiculopathy, unspecified cervical region (principal)
CPT/HCPCS: 99212; G0463

== ENCOUNTER → 2022-12-02 12:00 | Outpatient (CLI) | payer MEDICARE, SELFPAY ==
[2022-12-02 15:18] LABS: Basophils # 0.1 K/mm3 (0-0.2); Eosinophils # 0.2 K/mm3 (0.0-0.4); Eosinophils % 3.8 % (0.1-12.0); Hematocrit 42.4 % (42.0-52.0); Hemoglobin 13.5 g/dL (14.1-18.0); Lymphocytes % 37.2 % (10-50); Mean Corpuscular HGB Conc 31.9 g/dL (31.8-35.4); Mean Corpuscular Hemoglobin 35.4 pg (27.0-31.2); Mean Platelet Volume 9.4 fl (7.4-10.4); Monocytes # 0.6 K/mm3 (0.1-1.0); Monocytes % 10.8 % (1.7-9.3); Neutrophils # 2.6 K/mm3 (1.8-7.8); Neutrophils % 47.3 % (37.0-80.0); Platelet Count 383 K/mm3 (142-424); Red Blood Count 3.82 M/mm3 (4.60-6.20); Red Cell Distribution Width 15.7 % (11.5-17.5); White Blood Count 5.4 K/mm3 (4.8-10.8)
[2022-12-02 15:22] LABS: Alanine Aminotransferase 18 U/L (12-78); Albumin Level 4.2 g/dl (3.5-5.0); Albumin/Globulin Ratio 1.4 (1.1-1.8); Alkaline Phosphatase 40 U/L (38-126); Anion Gap 19.2 mEq/L (5-15); Aspartate Amino Transferase 29 U/L (17-59); Bilirubin,Total 0.4 mg/dl (0.2-1.3); Blood Urea Nitrogen 12 mg/dl (9-20); Calcium 8.7 mg/dl (8.4-10.2); Carbon Dioxide 20 mmol/L (22.0-30.0); Chloride 103 mmol/L (98-107); Chol/HDL Ratio 1.9 (1-3.5); Cholesterol 132 mg/dl (140-200); Estimated Glomerular Filt Rate 68 ml/min (>60); GFR (African American) 82 ML/MIN (>60); Glucose 95 mg/dl (74-100); HDL Cholesterol 71 mg/dl (40-60); Potassium 4.2 mmoL/L (3.5-5.1); Sodium 138 mmol/L (136-145); Total Protein,Serum 7.2 g/dl (6.3-8.2); Triglycerides 325 mg/dl (30-150); VLDL Cholesterol 65 mg/dL (0-40)
[2022-12-02 15:37] LABS: 25-OH Vitamin D, Total 34.5 ng/mL (30-100)
[2022-12-02 15:52] LABS: Prostate Specific Ag Screen 2.1 ng/ml (0.0-4.0); Thyroid Stimulating Hormone 1.02 uIU/mL (0.465-4.68)
== END ==
PROVIDERS: PCP Emergency Medicine; Visit Provider Physician Assistant
DX: E03.9 Hypothyroidism, unspecified (principal); E55.9 Vitamin D deficiency, unspecified; Z12.5 Encounter for screening for malignant neoplasm of prostate; Z79.899 Other long term (current) drug therapy
CPT/HCPCS: 80053; 80061; 82306; 84443; 85025; G0103